=== PATIENT | male | born 1960 | race African-American/Black ===

== ENCOUNTER 2020-02-14 15:23 | Inpatient (IN) | payer SELFPAY ==
[2020-02-14] MEDS ORDERED: ASPIRIN 81 MG CHEWABLE TABLET ONE (16:25)
[2020-02-14 16:48] LABS: Absolute Lymphocytes (CBC) 1.8 K/uL (0.7-4.9); Basophils % 1.2 % (0-1.3); Hematocrit 45.4 % (39.6-49.0); Lymphocytes % 39.2 % (15.3-44.8); MPV 9.2 fL (7.6-11.3); Protime INR 1.33; RBC Red Blood Cell Count 4.54 M/uL (4.33-5.43)
[2020-02-14 16:49] LABS: Arterial Blood Carboxyhemoglob 1.4 % (0-1.5); Blood Gas Oxyhemoglobin 88.9 % (94-97); Blood O2 Saturation 90.9 % (92-98.5)
[2020-02-14] MEDS ORDERED: CLOPIDOGREL 75 MG TABLET ONE ×2 (16:57→19:00)
[2020-02-14] MEDS ORDERED: FUROSEMIDE 40 MG/4 ML VIAL ONE ×2 (16:58→19:36)
[2020-02-14] MEDS ORDERED: ONDANSETRON 4 MG/2 ML VIAL ONE (16:58)
[2020-02-14] MEDS ORDERED: MORPHINE 4 MG/ML SYR ONE (16:58)
[2020-02-14 17:04] LABS: Bilirubin Direct 0.8 mg/dL (0-0.2); Bilirubin Total 3.3 mg/dL (0.2-1.0); Magnesium 2.1 mg/dL (1.8-2.4); Potassium 3.7 mmol/L (3.5-5.1); Protein, Total 6.3 g/dL (6.4-8.2)
--- NOTE | 2020-02-14 17:04 | RAD REPORT ---
EXAM DESCRIPTION: RAD - Chest Single View - 02/14/2020 4:41 pm CLINICAL HISTORY: SOB COMPARISON: None TECHNIQUE: AP portable chest image was obtained 02/14/2020 4:41 pm . FINDINGS: Lung volumes are low. No peripheral mass or consolidation identified. Retrocardiac left ba se assessment is limited. Significant cardiac silhouette enlargement present. Mild vascular engorgeme nt seen. No measurable pleural effusion and no pneumothorax. No acute bony abnormality seen. No acute aortic findings suspected. IMPRESSION: Significant cardiomegaly with mild vascular engorgement. Mild failure/ volume overload is suspected.
[2020-02-14 17:06] LABS: Troponin (Emerg Dept Use Only) 2.75 ng/mL (0.0-0.045)
[2020-02-14] MEDS ORDERED: NITROGLYCERIN/D5W 50 MG/250 ML BTL IV ONE (18:07)
[2020-02-14] MEDS ORDERED: ENOXAPARIN 100 MG/ML SYR SQ ONE (18:07)
--- NOTE | 2020-02-14 18:50 | EDPHYS ---
Physician Documentation [facility] Name: Paco Yadav Age: 59 yrs Sex: Male : 1960 Arrival Date: 02/14/2020 Time: 15:26 Bed External Waiting Private MD: ED Physician Cali Horne HPI: 02/13 16:41 This 59 yrs old Black Male presents to ER via Wheelchair with complaints of Breathing snw Difficulty. 16:41 The patient has shortness of breath at rest, that woke him/her from sleep. Onset: The snw symptoms/episode began/occurred gradually. Duration: The symptoms are continuous. Associated signs and symptoms: Pertinent positives: unable to sleep. Severity of symptoms: At their worst the symptoms were moderate severe. The patient has not experienced similar symptoms in the past. The patient has been recently seen by a physician: sent to [place] for [place]. Historical: - Allergies: 15:43 No Known Allergies; em - PMHx: 15:43 Myocardial infarction; em - PSHx: 15:43 left knee; em - Immunization history:: Adult Immunizations up to date. - Social history:: Smoking status: Patient denies any tobacco usage or history of. ROS: 16:41 Constitutional: Negative for fever, chills, and weight loss, Eyes: Negative for injury, snw pain, redness, and discharge, ENT: Negative for injury, pain, and discharge, Neck: Negative for injury, pain, and swelling, Cardiovascular: Negative for chest pain, palpitations, and edema, Abdomen/GI: Negative for abdominal pain, nausea, vomiting, diarrhea, and constipation, Back: Negative for injury and pain, : Negative for injury, bleeding, discharge, and swelling, MS/Extremity: Negative for injury and deformity, Skin: Negative for injury, rash, and discoloration, Neuro: Negative for headache, weakness, numbness, tingling, and seizure. 16:41 Respiratory: Positive for dyspnea on exertion, shortness of breath, at rest. Exam: 16:40 Constitutional: This is a well developed, well nourished patient who is awake, alert, snw and in no acute distress. Head/Face: Normocephalic, atraumatic. Eyes: Pupils equal round and reactive to light, extra-ocular motions intact. Lids and lashes normal. Conjunctiva and sclera are non-icteric and not injected. Cornea within normal limits. Periorbital areas with no swelling, redness, or edema. ENT: Nares patent. No nasal discharge, no septal abnormalities noted. Tympanic membranes are normal and external auditory canals are clear. Oropharynx with no redness, swelling, or masses, exudates, or evidence of obstruction, uvula midline. Mucous membranes moist. Neck: Trachea midline, no thyromegaly or masses palpated, and no cervical lymphadenopathy. Supple, full range of motion without nuchal rigidity, or vertebral point tenderness. No Meningismus. Chest/axilla: Normal chest wall appearance and motion. Nontender with no deformity. No lesions are appreciated. Abdomen/GI: Soft, non-tender, with normal bowel sounds. No distension or tympany. No guarding or rebound. No evidence of tenderness throughout. Back: No spinal tenderness. No costovertebral tenderness. Full range of motion. Skin: Warm, dry with normal turgor. Normal color with no rashes, no lesions, and no evidence of cellulitis. MS/ Extremity: Pulses equal, no cyanosis. Neurovascular intact. Full, normal range of motion. Neuro: Awake and alert, GCS 15, oriented to person, place, time, and situation. Cranial nerves II-XII grossly intact. Motor strength 5/5 in all extremities. Sensory grossly intact. Cerebellar exam normal. Normal gait. Psych: Awake, alert, with orientation to person, place and time. Behavior, mood, and affect are within normal limits. 16:40 Cardiovascular: Rate: tachycardic, Rhythm: regular, Pulses: no pulse deficits are appreciated, Heart sounds: normal, Edema: 4+ edema to level of left ankle and right ankle. 16:40 Respiratory: mild respiratory distress is noted, Respirations: shallow respirations, tachypnea, Breath sounds: are clear throughout. 16:40 ECG was reviewed by the Attending Physician. [facility] Vital Signs: 15:39 BP 174 / 133; Pulse 93; Resp 18; Temp 97.7(O); Pulse Ox 99% on R/A; Weight 110.22 kg em (R); Height 5 ft. 10 in. (177.80 cm); Pain 0/10; 16:30 BP 162 / 125; Pulse 103; Resp 17; Pulse Ox 98% ; Pain 0/10; hb 17:00 BP 201 / 134; Pulse 78; Resp 18; Pulse Ox 93% on R/A; hb 17:15 BP 170 / 138; Pulse 90; Resp 17; Pulse Ox 93% ; Pain 0/10; hb 17:30 BP 192 / 126; Pulse 94; Resp 19; Pulse Ox 95% ; hb 17:45 BP 192 / 138; Pulse 98; Resp 17; Pulse Ox 98% ; hb 18:00 BP 193 / 124; Pulse 98; Resp 19; Pulse Ox 92% on R/A; hb 18:15 BP 195 / 141; Pulse 91; Resp 15; Pulse Ox 99% on 30% BiPAP; hb 18:30 BP 181 / 140; Pulse 98; Resp 15; Pulse Ox 87% on 30% BiPAP; hb 18:45 BP 180 / 141; Pulse 97; Resp 15; Pulse Ox 99% on 30% BiPAP; Pain 0/10; hb 19:00 BP 199 / 135; Pulse 97; Resp 15; Pulse Ox 97% on 30% BiPAP; hb 19:15 BP 170 / 138; Pulse 96; Resp 15; Pulse Ox 100% on BiPAP; wh 19:30 BP 180 / 141; Pulse 91; Resp 15; Pulse Ox 99% on BiPAP; wh 19:45 BP 180 / 144; Pulse 95; Resp 15; Pulse Ox 100% on BiPAP; wh 15:39 Body Mass Index 34.87 (110.22 kg, 177.80 cm) em MDM: 15:56 Patient medically screened. snw 18:17 Physician consultation: Hakan Dodd MD was called at 17:45, was contacted at 17:45, snw regarding admission, to the ICU, patient's condition. 18:45 Data reviewed: vital signs, nurses notes. Data interpreted: Pulse oximetry: on room air snw is 89 %. Interpretation: hypoxia. Arterial blood gas: PO2: 65.5, Oxygen: on room air. 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 02/13 15:53 Order name: Basic Metabolic Panel; Complete Time: 17:12 snw 02/13 15:53 Order name: CBC with Diff; Complete Time: 17:03 snw 02/13 15:53 Order name: LFT's; Complete Time: 17:12 snw 02/13 15:53 Order name: Magnesium; Complete Time: 17:12 snw 02/13 15:53 Order name: NT PRO-BNP; Complete Time: 17:12 snw 02/13 15:53 Order name: PT-INR; Complete Time: 17:03 w 02/13 15:53 Order name: Troponin (emerg Dept Use Only); Complete Time: 17:12 snw 02/13 15:53 Order name: XRAY Chest (1 view); Complete Time: 17:05 snw 02/13 16:12 Order name: ABG; Complete Time: 16:52 hb 02/13 17:44 Order name: BIPAP 02/13 15:53 Order name: EKG; Complete Time: 15:54 w 02/13 15:53 Order name: Cardiac monitoring; Complete Time: 16:30 w 02/13 15:53 Order name: EKG - Nurse/Tech; Complete Time: 16:31 02/13 15:53 Order name: IV Saline Lock; Complete Time: 16:31 w 02/13 15:53 Order name: Labs collected and sent; Complete Time: 16:31 w 02/13 15:53 Order name: O2 Per Protocol; Complete Time: 16:31 02/13 15:53 Order name: O2 Sat Monitoring; Complete Time: 16:31 02/13 17:14 Order name: VS Recheck: q 15 min; Complete Time: 17:33 02/13 17:44 Order name: Sultana; Complete Time: 20:29 w 02/13 19:02 Order name: CONS Physician Consult EDMS EC:40 Rate is 104 beats/min. MI interval is normal. QRS interval is normal. QT interval is snw normal. No Q waves. T waves are Inverted in leads I, II, aVL. Clinical impression: NSR w/ Non-specific ST/T Changes. Administered Medications: 16:30 Drug: Aspirin Chewable Tablet 324 mg Route: PO; hb 17:02 Follow up: Response: No adverse reaction hb 16:53 Drug: morphine 4 mg Route: IVP; Site: left antecubital; hb 17:36 Follow up: Response: No adverse reaction hb 16:54 Drug: PlaVIX 75 mg Route: PO; hb 17:35 Follow up: Response: No adverse reaction hb 16:54 Drug: Lasix 40 mg Route: IVP; Site: left antecubital; hb 17:36 Follow up: Response: No adverse reaction hb 16:54 Drug: Nitroglycerin 0.4 mg Route: Sublingual; hb 17:36 Follow up: Response: No adverse reaction hb 17:01 Drug: Zofran (Ondansetron) 4 mg Route: IVP; Site: left antecubital; hb 17:36 Follow up: Response: No adverse reaction hb 17:49 Drug: Lovenox 100 mg Route: Sub-Q; Site: abdomen; hb 18:30 Follow up: Response: No adverse reaction hb 18:05 Drug: Nitro Drip - (Nitroglycerin 50 mg, D5W 250 ml) Route: IV; Rate: 5 mcg/min; Site: hb left antecubital; 20:29 Follow up: Response: No adverse reaction; IV Status: Infusion continued upon admission wh 18:55 Drug: PlaVIX 225 mg Route: PO; hb 20:29 Follow up: Response: No adverse reaction wh 20:29 Not Given (Pt transferred to ICU): Lasix 40 mg IVP once wh Disposition: 19:00 Critical Care:. snw 02/14 14:00 Co-signature as Attending Physician, Cali Horne MD I agree with the assessment and kdr plan of care. Disposition: 02/14/20 18:49 Hospitalization ordered by Hakan Dodd for Inpatient Admission. Preliminary diagnosis are Non-ST elevation (NSTEMI) myocardial infarction, Hypertensive heart disease with heart failure. - Bed requested for Intensive Care Unit. - Status is Inpatient Admission. wh - Condition is Stable. - Problem is new. - Symptoms are unchanged. Critical care time excluding procedures: 02/13 19:00 Critical care time: Bedside Care: 15 minutes, Consultation: 30 minutes, Family snw Intervention: 5 minutes. Total time: 50 minutes Signatures: Dispatcher [employer] Cali Minaya MD MD kdr Waters, Shelly, KHUSHBOO-C STEM ROLLER OR CRUSHER OPERATOR-Albert León, JUANY RN Madison Camargo RN RN Sammi Reyes Corrections: (The following items were deleted from the chart) 20:30 18:49 Hospitalization Ordered by Hakan Dodd MD for Inpatient Admission. Preliminary diagnosis is Non-ST elevation (NSTEMI) myocardial infarction; Hypertensive heart disease with heart failure. Bed requested for Intensive Care Unit. Status is Inpatient Admission. Condition is Stable. Problem is new. Symptoms are unchanged. snw
--- NOTE | 2020-02-14 18:50 | ER ---
Nurse's Notes [facility] Name: Paco Yadav Age: 59 yrs Sex: Male : 1960 Arrival Date: 02/14/2020 Time: 15:26 Bed External Waiting [facility] MD: Diagnosis: Non-ST elevation (NSTEMI) myocardial infarction;Hypertensive heart disease with heart failure Presentation: 02/13 15:39 Chief complaint: Patient states: shortness of breath for 2 weeks, also reports judi. leg em swelling, was in the hospital last month for a heart attack, denies N/V or fever, judi. swelling noted to feet, denies chest pain. Coronavirus screen: Client denies travel out of the [place] in the last 14 days. Ebola Screen: Patient negative for fever greater than or equal to 101.5 degrees Fahrenheit, and additional compatible Ebola Virus Disease symptoms Patient denies exposure to infectious person. Patient denies travel to an Ebola-affected area in the 21 days before illness onset. No symptoms or risks identified at this time. Initial Sepsis Screen: Does the patient meet any 2 criteria? HR > 90 bpm. No. Patient's initial sepsis screen is negative. Does the patient have a suspected source of infection? No. Patient's initial sepsis screen is negative. Risk Assessment: Do you want to hurt yourself or someone else? Patient reports no desire to harm self or others. Onset of symptoms was January 31, 2020. 15:39 Method Of Arrival: Wheelchair em 15:39 Acuity: ANNA 2 em Historical: - Allergies: 15:43 No Known Allergies; em - PMHx: 15:43 Myocardial infarction; em - PSHx: 15:43 left knee; em - Immunization history:: Adult Immunizations up to date. - Social history:: Smoking status: Patient denies any tobacco usage or history of. Screenin:32 Abuse screen: Denies threats or abuse. Denies injuries from another. Nutritional hb screening: No deficits noted. Tuberculosis screening: No symptoms or risk factors identified. Fall Risk None identified. Assessment: 16:33 General: Appears in no apparent distress. Behavior is calm, cooperative. Pain: Denies hb pain. Neuro: Level of Consciousness is awake, alert, obeys commands, Oriented to person, place, time, situation. Cardiovascular: Reports since intermittent palpitations and SOB Capillary refill < 3 seconds Patient's skin is warm and dry. Rhythm is sinus tachycardia. Respiratory: Airway is patent Respiratory effort is even, unlabored, Respiratory pattern is regular. GI: No signs and/or symptoms were reported involving the gastrointestinal system. : No signs and/or symptoms were reported regarding the genitourinary system. EENT: No signs and/or symptoms were reported regarding the EENT system. Derm: Skin is pink, warm \T\ dry. Musculoskeletal: No signs and/or symptoms reported regarding the musculoskeletal system. 17:30 Reassessment: Patient appears in no apparent distress at this time. No changes from hb previously documented assessment. Patient and/or family updated on plan of care and expected duration. Pain level reassessed. Patient is alert, oriented x 3, equal unlabored respirations, skin warm/dry/pink. 18:06 Reassessment: Aishwarya RT at bedside for BIPAP setup. hb 18:15 Reassessment: BIPAP 15/8, R14, FiO2 30%. hb 19:05 Reassessment: Patient appears in no apparent distress at this time. Patient and/or wh family updated on plan of care and expected duration. Pain level reassessed. Patient is alert, oriented x 3, equal unlabored respirations, skin warm/dry/pink. 19:21 Reassessment: Nitro drip increased to 30 mcg/min by Juan Ramon HUANG Hospitalist. hb 19:30 Reassessment: Nitro drip increased to 75 mcg/min by Juan Ramon Cardoza PYRIDINE OPERATOR. wh 20:10 Reassessment: Patient and/or family updated on plan of care and expected duration. Pain wh level reassessed. Patient is alert, oriented x 3, equal unlabored respirations, skin warm/dry/pink. Vital Signs: 15:39 BP 174 / 133; Pulse 93; Resp 18; Temp 97.7(O); Pulse Ox 99% on R/A; Weight 110.22 kg em (R); Height 5 ft. 10 in. (177.80 cm); Pain 0/10; 16:30 BP 162 / 125; Pulse 103; Resp 17; Pulse Ox 98% ; Pain 0/10; hb 17:00 BP 201 / 134; Pulse 78; Resp 18; Pulse Ox 93% on R/A; hb 17:15 BP 170 / 138; Pulse 90; Resp 17; Pulse Ox 93% ; Pain 0/10; hb 17:30 BP 192 / 126; Pulse 94; Resp 19; Pulse Ox 95% ; hb 17:45 BP 192 / 138; Pulse 98; Resp 17; Pulse Ox 98% ; hb 18:00 BP 193 / 124; Pulse 98; Resp 19; Pulse Ox 92% on R/A; hb 18:15 BP 195 / 141; Pulse 91; Resp 15; Pulse Ox 99% on 30% BiPAP; hb 18:30 BP 181 / 140; Pulse 98; Resp 15; Pulse Ox 87% on 30% BiPAP; hb 18:45 BP 180 / 141; Pulse 97; Resp 15; Pulse Ox 99% on 30% BiPAP; Pain 0/10; hb 19:00 BP 199 / 135; Pulse 97; Resp 15; Pulse Ox 97% on 30% BiPAP; hb 19:15 BP 170 / 138; Pulse 96; Resp 15; Pulse Ox 100% on BiPAP; wh 19:30 BP 180 / 141; Pulse 91; Resp 15; Pulse Ox 99% on BiPAP; wh 19:45 BP 180 / 144; Pulse 95; Resp 15; Pulse Ox 100% on BiPAP; wh 15:39 Body Mass Index 34.87 (110.22 kg, 177.80 cm) em ED Course: 15:26 Patient arrived in ED. mr 15:42 Triage completed. em 15:43 Arm band placed on. em 15:50 Annette Fletcher FNP-C is PHCP. snw 15:50 Cali Horne MD is Attending Physician. snw 16:10 Madison Camargo, RN is Primary Nurse. hb 16:30 Inserted saline lock: 20 gauge in left antecubital area, using aseptic technique. Blood hb collected. 16:32 Patient has correct armband on for positive identification. Bed in low position. Call hb light in reach. Side rails up X 1. monitor technician on. Pulse ox on. NIBP on. 16:42 XRAY Chest (1 view) In Process Unspecified. EDMS 18:05 BIPAP Sent. hb 18:48 Hakan Dodd MD is Hospitalizing Provider. snw 19:22 EKG done, by ED staff, reviewed by Juan Ramon GROSSMAN. hb 20:00 Sultana cath inserted, using sterile technique, 18 Fr., returned clear yellow urine. wh Patient tolerated well. Patient admitted, IV remains in place. 20:25 No provider procedures requiring assistance completed. Administered Medications: 16:30 Drug: Aspirin Chewable Tablet 324 mg Route: PO; hb 17:02 Follow up: Response: No adverse reaction hb 16:53 Drug: morphine 4 mg Route: IVP; Site: left antecubital; hb 17:36 Follow up: Response: No adverse reaction hb 16:54 Drug: PlaVIX 75 mg Route: PO; hb 17:35 Follow up: Response: No adverse reaction hb 16:54 Drug: Lasix 40 mg Route: IVP; Site: left antecubital; hb 17:36 Follow up: Response: No adverse reaction hb 16:54 Drug: Nitroglycerin 0.4 mg Route: Sublingual; hb 17:36 Follow up: Response: No adverse reaction hb 17:01 Drug: Zofran (Ondansetron) 4 mg Route: IVP; Site: left antecubital; hb 17:36 Follow up: Response: No adverse reaction hb 17:49 Drug: Lovenox 100 mg Route: Sub-Q; Site: abdomen; hb 18:30 Follow up: Response: No adverse reaction hb 18:05 Drug: Nitro Drip - (Nitroglycerin 50 mg, D5W 250 ml) Route: IV; Rate: 5 mcg/min; Site: hb left antecubital; 20:29 Follow up: Response: No adverse reaction; IV Status: Infusion continued upon admission 18:55 Drug: PlaVIX 225 mg Route: PO; hb 20:29 Follow up: Response: No adverse reaction 20:29 Not Given (Pt transferred to ICU): Lasix 40 mg IVP once Outcome: 18:49 Decision to Hospitalize by Provider. snw 20:15 Admitted to ICU accompanied by nurse, via stretcher, room , with oxygen, on monitor, with chart, Report called to Jessica Angulo RN. Report was also provided by Juan Ramon CUELLO 20:15 Condition: stable 20:15 Instructed on the need for admit. 20:30 Patient left the ED. Signatures: Dispatcher [employer] EDAnnette Rey, ROMEROC PYRIDINE OPERATOR-Shanika See Edgar, RN Madison Toney RN RN hb Habalo, Winsy Corrections: (The following items were deleted from the chart) 18:37 18:05 BP 193 / 124; Pulse 98bpm; Resp 19bpm; Pulse Ox 92% RA; hb hb 19:07 19:00 BP 199 / 135; Pulse 10bpm; Resp 15bpm; Pulse Ox 97% 02 30% BiPAP; hb hb 20:30 19:15 BP 170 / 138; Pulse 96bpm; Resp 18bpm; Pulse Ox 100% BiPAP; [facility] 20:30 19:30 BP 180 / 141; Pulse 91bpm; Resp 16bpm; Pulse Ox 99% BiPAP; [facility] 20:30 19:45 BP 180 / 144; Pulse 95bpm; Resp 16bpm; Pulse Ox 100% BiPAP; [facility]
--- NOTE | 2020-02-14 19:45 | P.HP ---
Certification for Inpatient Patient admitted to: Inpatient With expected LOS: >2 Midnights Patient will require the following post-hospital care: None Practitioner: I am a practitioner with admitting privileges, knowledge of patient current condition, hospital course, and medical plan of care. Services: Services provided to patient in accordance with Admission requirements found in Title 42 Section 412.3 of the Code of Federal Regulations Patient History Date of Service: 02/14/20 Reason for admission: NSTEMI History of Present Illness: 59-year-old male with history of hypertension, systolic congestive heart failure, myocardial infarction (STEMI), cardiomegaly, history of tobacco abuse presents emergency department for shortness of breath. Patient's blood pressure around 190/130. Patient is found to have elevated troponin at 2.75, elevated BNP at 8000. Patient was admitted to [facility] approximately [address]-elevation myocardial infarction. Patient had ST elevation in leads 2, 3, aVF, V3 through V6.. Patient had heart catheterization which revealed acute plaque rupture of the left circumflex, lesion was spontaneously recannulated with pharmacological therapy. Patient with 100% occlusion of the apical LAD segment. Patient was discharged from the hospital and has been home complaining about shortness of breath. Patient was not sure how to take his medications or what they are for. Patient states he was not taking Plavix at home. Patient was placed on BiPAP, Sultana catheter placed, patient received nitro drip and IV Lasix in the emergency department. When I saw the patient in the emergency department he was awake, alert, oriented x4. Patient denied chest pain just reports shortness of breath. There was some elevation of the ST segment in leads V3 through V6, this was noted by the ED physician and discussed thoroughly with cardiology who both agreed that this is J-point elevation and not ST-elevation myocardial infarction. 2nd EKG was obtained and reviewed by cardiology. Patient be admitted to the intensive care unit for further management. Case was discussed with cardiology and attending hospitalist physician. - Past Medical/Surgical History -: Systolic congestive heart failure-EF 20% -: Hypertension -: Cardiomegaly -: Myocardial infarction -: 100% occlusion apical LAD -: Heart catheterization 2019 Psychosocial/ Personal History: Patient lives at home with his . - Family History Father -: Heart disease Mother -: Heart disease Brother -: Heart disease, Diabetes - Social History Smoking Status: Former smoker (Patient quit smoking approximately 1 month ago when he had his heart attack) Alcohol use: No CD- Drugs: No Caffeine use: No Place of Residence: Home Review of Systems 10-point ROS is otherwise unremarkable Respiratory: Cough, Dry, Shortness of Breath Cardiovascular: Edema (Bilateral lower extremities, abdomen) Physical Examination - Physical Exam General: Alert, In no apparent distress, Oriented x3 HEENT: Atraumatic, Normocephalic, PERRLA, Mucous membr. moist/pink Neck: Supple, 2+ carotid pulse no bruit Respiratory: Diminished (Bilaterally, patient on BiPAP) Cardiovascular: Regular rate/rhythm (Patient with PVCs, sinus tachycardia around 100), Normal S1 S2, Edema (3+ edema bilateral lower extremities, some edema noted to abdomen.) Capillary refill: <2 Seconds Gastrointestinal: Normal bowel sounds, Soft and benign, No tenderness, No rebound, No guarding Musculoskeletal: No contractures, No erythema, No tenderness Integumentary: No tenderness/swelling, No erythema, No warmth Neurological: Normal speech, Normal strength at 5/5 x4 extr, Normal tone - Studies Laboratory Data (last 24 hrs) 02/14/20 16:24: PT 15.6 H, INR 1.33 02/14/20 16:24: WBC 4.5, Hgb 14.7, Hct 45.4, Plt Count 199 02/14/20 16:24: Sodium 144, Potassium 3.7, BUN 19 H, Creatinine 1.93 H, Glucose 101, Magnesium 2.1, Total Bilirubin 3.3 H, AST 28, ALT 53, Alkaline Phosphatase 110 Assessment and Plan - Plan Assessment NSTEMI Hypertensive emergency Acute on chronic systolic congestive heart failure Acute kidney injury Hypertensive emergency History of tobacco abuse Plan NSTEMI: Initial troponin 2.75, will trend troponin. Cardiology has been consulted and case was discussed in detail. Plan will be for heart catheterization tomorrow morning. Continue with Lovenox 1 milligram/kilogram twice daily. Patient received Plavix loading dose, aspirin, Lasix, Sultana catheter, nitroglycerin drip in the emergency department. I have started patient's home medications. Patient to remain on telemetry throughout this hospitalization, will admit to the intensive care unit. Appreciate further input from cardiology. Hypertensive emergency: Continue with nitroglycerin drip at this time. Titrate up as needed. Have initiate patient's home medications all the patient be NPO after midnight for heart catheterization. Acute on chronic systolic congestive heart failure: Continue as above, previous recent echocardiogram from [facility] showed EF of approximately 20%. Continue with Lasix, nitroglycerin. Appreciate further input from cardiology. Acute kidney injury: Creatinine 1.9 at this time. Patient will require full anticoagulation with Lovenox and likely have heart catheterization tomorrow. Suspect kidney injury may worsen slightly due to contrast. Continue with Lasix at this time as this is likely cardiorenal. Will consult nephrology as needed. Hypertensive emergency: Continue nitroglycerin drip, Lasix, home medications. May need adjustment of home medications once patient is stabilized in heart catheterization performed. History of tobacco abuse: Patient reports cessation of tobacco products for the past 1 month. Discharge Plan: Home Plan to discharge in: Greater than 2 days - Advance Directives Does patient have a Living Will: No Does patient have a Durable POA for Healthcare: No - Code Status/Comfort Care Code Status Assessed: Yes (Patient is full code) Critical Care: No Time Spent Managing Pts Care (In Minutes): 55
[2020-02-14] MEDS ORDERED: NITROGLYCERIN/D5W 50 MG/250 ML BTL IV PRN (20:45)
[2020-02-14] MEDS ORDERED: ONDANSETRON 4 MG/2 ML VIAL IV PRN (20:45)
[2020-02-14] MEDS ORDERED: MORPHINE 2 MG/ML SYR IV PRN (20:45)
[2020-02-14] MEDS ORDERED: ACETAMINOPHEN 500 MG TAB PO PRN (20:45)
[2020-02-14] MEDS ORDERED: FUROSEMIDE 40 MG/4 ML VIAL IV ONE (20:47)
[2020-02-14] MEDS ORDERED: carvediloL 6.25 MG TAB ONE (21:05)
[2020-02-14] MEDS: carvediloL 25 MG TAB PO SCH (21:33)
[2020-02-14] MEDS: ATORVASTATIN 80 MG TAB PO SCH (21:33)
[2020-02-14] MEDS: HYDRALAZINE HCL 25 MG TABLET PO SCH (21:33)
[2020-02-14] MEDS ORDERED: carvediloL 25 MG TAB ONE (21:40)
[2020-02-14] MEDS ORDERED: ATORVASTATIN 80 MG TAB ONE (21:40)
[2020-02-14] MEDS ORDERED: HYDRALAZINE HCL 25 MG TABLET ONE (21:41)
[2020-02-14 22:18] VITALS: BMI 34.8
[2020-02-14 22:38] LABS: CKMB Creatine Kinase MB 2.3 ng/mL (0.3-3.6)
[2020-02-14 22:43] LABS: Troponin I 2.84 ng/mL (0.0-0.045)
[2020-02-14] MEDS ORDERED: POTASSIUM 25 MEQ EFFERV TAB PO ONE (22:59)
[2020-02-14] MEDS ORDERED: POTASSIUM CL SA 10 MEQ TAB PO ONE ×2 (23:05→23:30)
[2020-02-15] MEDS ORDERED: NITROGLYCERIN/D5W 50 MG/250 ML BTL IV ONE (00:26)
[2020-02-15 04:39] LABS: Absolute Lymphocytes (CBC) 1.1 K/uL (0.7-4.9); Hematocrit 39.3 % (39.6-49.0); Lymphocytes % 20.9 % (15.3-44.8); MPV 9.1 fL (7.6-11.3); RBC Red Blood Cell Count 3.93 M/uL (4.33-5.43)
[2020-02-15 04:53] LABS: Magnesium 1.9 mg/dL (1.8-2.4); Potassium 3.5 mmol/L (3.5-5.1)
[2020-02-15] MEDS ORDERED: POTASSIUM CL SA 10 MEQ TAB PO ONE ×2 (05:16→05:48)
[2020-02-15 05:32] LABS: CKMB Creatine Kinase MB 2.1 ng/mL (0.3-3.6)
[2020-02-15 05:33] LABS: Troponin I 2.41 ng/mL (0.0-0.045)
[2020-02-15] MEDS ORDERED: NA CHLORIDE 0.9% 1,000 ML ONE (05:38)
[2020-02-15] MEDS ORDERED: ASPIRIN EC 81 MG TAB PO ONE (05:39)
[2020-02-15] MEDS ORDERED: NA CHLORIDE 0.9% 1,000 ML IV SCH (06:00)
[2020-02-15] MEDS: ASPIRIN EC 81 MG TAB PO SCH (06:00)
[2020-02-15] MEDS: carvediloL 25 MG TAB PO SCH ×2 (06:00→17:16)
[2020-02-15] MEDS: HYDRALAZINE HCL 25 MG TABLET PO SCH ×3 (06:00→20:06)
[2020-02-15] MEDS ORDERED: FUROSEMIDE 40 MG/4 ML VIAL IV SCH ×2 (09:00→17:00)
[2020-02-15] MEDS: Enoxaparin 120 MG/0.8 ML SYR SQ SCH ×2 (09:00→20:05)
--- NOTE | 2020-02-15 09:09 | P.PN ---
Subjective Date of Service: 02/15/20 Chief Complaint: NSTEMI Subjective: Improving (breathing more comfortably, feels swelling in legs has improved) Physical Examination - Vital Signs Temperature: 98.5 F Blood Pressure: 137/88 Pulse: 84 Respirations: 20 Pulse Ox (%): 94 - Physical Exam General: Alert, In no apparent distress HEENT: Sclerae nonicteric Neck: JVD distended Respiratory: Diminished (bilaterally at bases, otherwise clear) Cardiovascular: Regular rate/rhythm, Edema (3+ up to thighs) Gastrointestinal: Soft and benign, Non-distended, No tenderness Musculoskeletal: No erythema, No tenderness Integumentary: No rashes Neurological: Normal speech, Normal affect Urinary: Sultana catheter - Studies Laboratory Data (last 24 hrs) 02/14/20 16:24: PT 15.6 H, INR 1.33 02/14/20 16:24: WBC 4.5, Hgb 14.7, Hct 45.4, Plt Count 199 02/14/20 16:24: Sodium 144, Potassium 3.7, BUN 19 H, Creatinine 1.93 H, Glucose 101, Magnesium 2.1, Total Bilirubin 3.3 H, AST 28, ALT 53, Alkaline Phosphatase 110 Assessment & Plan Physician Review Additional Text: NSTEMI Hypertensive emergency Acute on chronic systolic congestive heart failure Acute kidney injury History of tobacco abuse NSTEMI: -troponin: 2.75 -> 2.84 -> 2.41 -Cardiology consulted yesterday. plan for heart cath today, receiving lovenox 1mg/kg BID, ASA & Plavs -required significant nitroglycerin drip overnight, was able to decrease rate earlier this morning Hypertensive emergency: -Continue with nitroglycerin drip at this time -BP much better this morning Acute on chronic systolic congestive heart failure: -weaning nitro drip this mrboo, TTE recently done at [facility]: EF: 20% -diuresed ~3L overnight with 80mg IV lasix, can continue 40 IV BID for now Acute kidney injury: -Creatinine 1.9 on admission. down to 1.7 today; suspect due to CHF / cardiorenal -Received lovenox yesterday, hold lovenox this AM for cath History of tobacco abuse: Patient reports cessation of tobacco products for the past 1 month. Dispo: pending cardiac cath today Time Spent Managing Pts Care (In Minutes): 35
[2020-02-15] MEDS ORDERED: HEPA 1000U/500MLS 2,000 UNIT/1,000 ML BAG IV ONE (10:24)
[2020-02-15] MEDS ORDERED: HEPARIN 10,000 UNIT/10 ML VIAL IV ONE (10:25)
[2020-02-15] MEDS ORDERED: FENTANYL CITR 100 MCG/2 ML ONE (10:25)
[2020-02-15] MEDS ORDERED: MIDAZOLAM HCL 2 MG/2 ML INJ ONE (10:25)
[2020-02-15] MEDS ORDERED: NITROGLYCERIN 100 MCG/ML SYR (for cath lab use only) IV ONE (10:25)
[2020-02-15] MEDS ORDERED: HEPARIN 5000 UNIT/ML 1 ML VIAL ONE (10:25)
[2020-02-15] MEDS ORDERED: NICARDIPINE HCL 25 MG/10 ML IV ONE (10:25)
[2020-02-15] MEDS ORDERED: ACETYLCYST 20% 4 ML VIAL IH ONE (10:26)
[2020-02-15] MEDS ORDERED: HYDRALAZINE HCL 10 MG TABLET ONE (13:21)
[2020-02-15] MEDS: FUROSEMIDE 40 MG/4 ML VIAL IV SCH (17:24)
[2020-02-15] MEDS ORDERED: FUROSEMIDE 100 MG/10 ML VIAL IV ONE (17:25)
[2020-02-15] MEDS ORDERED: FUROSEMIDE 40 MG/4 ML VIAL ONE (17:34)
[2020-02-15] MEDS: ATORVASTATIN 80 MG TAB PO SCH (20:04)
[2020-02-15] MEDS ORDERED: ATORVASTATIN 20 MG TAB ONE (20:14)
[2020-02-16] MEDS: carvediloL 25 MG TAB PO SCH (05:06)
[2020-02-16 05:14] LABS: Absolute Lymphocytes (CBC) 1.5 K/uL (0.7-4.9); Basophils % 1.2 % (0-1.3); MPV 8.5 fL (7.6-11.3); RBC Red Blood Cell Count 4.11 M/uL (4.33-5.43)
[2020-02-16 05:35] LABS: Albumin 2.5 g/dL (3.4-5.0); Bilirubin Total 2.3 mg/dL (0.2-1.0); Potassium 3.7 mmol/L (3.5-5.1); Protein, Total 5.6 g/dL (6.4-8.2)
[2020-02-16] MEDS ORDERED: FUROSEMIDE 40 MG/4 ML VIAL ONE (07:10)
[2020-02-16] MEDS ORDERED: ASPIRIN EC 81 MG TAB PO ONE (07:10)
[2020-02-16] MEDS ORDERED: POTASSIUM 25 MEQ EFFERV TAB ONE (07:10)
[2020-02-16] MEDS: FUROSEMIDE 40 MG/4 ML VIAL IV SCH (07:24)
[2020-02-16] MEDS: ASPIRIN EC 81 MG TAB PO SCH (07:24)
[2020-02-16] MEDS: HYDRALAZINE HCL 25 MG TABLET PO SCH ×2 (07:25→13:10)
[2020-02-16] MEDS ORDERED: POTASSIUM 25 MEQ EFFERV TAB PO ONE (08:00)
[2020-02-16] MEDS: Enoxaparin 120 MG/0.8 ML SYR SQ SCH (09:07)
[2020-02-16 09:20] VITALS: O2SAT 96
[2020-02-16 12:02] VITALS: TEMP 98
--- NOTE | 2020-02-16 12:53 | P.DS ---
Admission Date: 02/14/20 Discharge Date: 02/16/20 Disposition: ROUTINE DISCHARGE Discharge Condition: GOOD Reason for Admission: NSTEMI Consultations: Cardiology- Dr. Rodrigues Procedures: CXR (02/13): Significant cardiomegaly with mild vascular engorgement. No measurable pleural effusion and no pneumothorax. Cardiac catheterization (02/14): Report unavailable at this time, however pneumatic tool repairer reported coronaries were all right Problem list NSTEMI Hypertensive emergency Acute on chronic systolic congestive heart failure Acute kidney injury History of tobacco abuse Brief History of Present Illness: 59-year-old male with history of hypertension, systolic congestive heart failure, myocardial infarction (STEMI), cardiomegaly, history of tobacco abuse presents emergency department for shortness of breath. Patient's blood pressure around 190/130. Patient is found to have elevated troponin at 2.75, elevated BNP at 8000. Patient was admitted to [facility] approximately [address]-elevation myocardial infarction. Patient had ST elevation in leads 2, 3, aVF, V3 through V6.. Patient had heart catheterization which revealed acute plaque rupture of the left circumflex, lesion was spontaneously recannulated with pharmacological therapy. Patient with 100% occlusion of the apical LAD segment. Patient was discharged from the hospital and has been home complaining about shortness of breath. Patient was not sure how to take his medications or what they are for. Patient states he was not taking Plavix at home. Patient was placed on BiPAP, Sultana catheter placed, patient received nitro drip and IV Lasix in the emergency department. Hospital Course: The patient was admitted to the ICU and was placed on a nitro drip for his significant hypertension (>200/110), which he remained on overnight and was able to be titrated off the following morning. A Sultana catheter was inserted for strict I/Os. He received 80 mg IV Lasix and diuresed ~ 3.6 L overnight. His troponins were trended (2.75-> 2.84-> 2.41). Cardiology was consulted. He was then taken to the cardiac catheterization lab where his coronaries were reported to be okay and he did not need further intervention. During his hospitalization he was continued to be diuresed with 80 mg IV Lasix b.i.d.. He diuresed an additional 4.7 L after the catheterization. Of note is suspected to have on CKD of unknown baseline. He reported mentally at some level of CKD with unable to provide further information. His creatinine on admission was 1.9 and decreased to 1.7 on day of discharge. Suspected to be due to CHF/cardiorenal. Given his kidney function his lisinopril was held on discharge. His blood pressure was much improved, 119-130/94-97. Patient isosorbide was not given during hospitalization: Patient reported it was giving him severe headaches at home, and this was discontinued on discharge. He states he will follow up with his pneumatic tool repairer to review these medications. He was discharged on a higher dose of Lasix (80 mg daily). He was advised to follow up with his PCP and pneumatic tool repairer. He would benefit from a repeat BMP to follow his kidney function. Vital Signs/Physical Exam: Temp Pulse Resp BP Pulse Ox 98.0 F 85 20 119/94 H 94 02/16/20 12:00 02/16/20 12:00 02/16/20 12:00 02/16/20 12:00 02/16/20 12:00 General: Alert, In no apparent distress HEENT: Mucous membr. moist/pink, EOMI, Sclerae nonicteric Neck: Supple, JVD not distended Respiratory: Clear to auscultation bilaterally, Normal air movement Cardiovascular: Regular rate/rhythm, Normal S1 S2, Edema (1+ b/l up to knees) Gastrointestinal: Soft and benign, Non-distended, No tenderness Musculoskeletal: No erythema, No tenderness Integumentary: No rashes Neurological: Normal speech, Normal strength at 5/5 x4 extr, Normal affect Laboratory Data at Discharge: WBC 5.0 K/uL (4.3-10.9) 02/16/20 05:00 Hgb 13.5 g/dL (13.6-17.9) L 02/16/20 05:00 Hct 41.0 % (39.6-49.0) 02/16/20 05:00 Plt Count 204 K/uL (152-406) 02/16/20 05:00 PT 15.6 SECONDS (9.5-12.5) H 02/14/20 16:24 INR 1.33 02/14/20 16:24 Sodium 146 mmol/L (136-145) H 02/16/20 05:00 Potassium 3.7 mmol/L (3.5-5.1) 02/16/20 05:00 BUN 15 mg/dL (7-18) 02/16/20 05:00 Creatinine 1.73 mg/dL (0.55-1.3) H 02/16/20 05:00 Glucose 103 mg/dL (74-106) 02/16/20 05:00 Magnesium 2.0 mg/dL (1.8-2.4) 02/16/20 05:00 Total Bilirubin 2.3 mg/dL (0.2-1.0) H 02/16/20 05:00 AST 17 U/L (15-37) 02/16/20 05:00 ALT 37 U/L (12-78) 02/16/20 05:00 Alkaline Phosphatase 88 U/L (45-117) 02/16/20 05:00 Troponin I 2.41 ng/mL (0.0-0.045) H* 02/15/20 04:04 Home Medications: Carvedilol [Coreg] 25 mg PO BID 02/14/20 Hydralazine [Apresoline*] 25 mg PO Q8H 02/14/20 Aspirin [Aspirin EC 81 MG] 81 mg PO DAILY 30 Days #30 tablet. 02/16/20 Atorvastatin Calcium [Lipitor] 1 tab PO BEDTIME 30 Days #30 tab 02/16/20 Clopidogrel Bisulfate [Plavix] 1 tab PO DAILY 30 Days #30 tablet 02/16/20 Furosemide [Lasix] 1 tab PO DAILY 30 Days #30 tablet 02/16/20 New Medications: Aspirin [Aspirin EC 81 MG] 81 mg PO DAILY 30 Days #30 tablet. Furosemide [Lasix] 1 tab PO DAILY 30 Days #30 tablet Atorvastatin Calcium [Lipitor] 1 tab PO BEDTIME 30 Days #30 tab Clopidogrel Bisulfate [Plavix] 1 tab PO DAILY 30 Days #30 tablet Patient Discharge Instructions: Follow up with Cardiology, Dr. Rodrigues, in 1 week. Follow up with PCP within 1 week. You will need your kidney function ch ecked at follow up. Diet: AHA Activity: Ad francisco Followup: Leonardo Rodrigues MD [ACTIVE - CAN ADMIT] - 1 Week (pneumatic tool repairer- call to schedule an appointment ) Time spent managing pt's care (in minutes): 40
[2020-02-16 14:45] VITALS: BP 128/89
== END 2020-02-16 15:00 | disposition home or self-care (01) | DRG 280 ==
LOC: ER 15:23 → ERHOLD 19:01
PROVIDERS: ADMIT Hospitalist; ATTEND Hospitalist
PROC: 4A023N7 Measurement of Cardiac Sampling and Pressure, Left Heart, Percutaneous Approach (ICD-10-PCS; principal; 2020-02-15)
PROC: B2111ZZ Fluoroscopy of Multiple Coronary Arteries using Low Osmolar Contrast (ICD-10-PCS; 2020-02-15)
DX: I21.4 Non-ST elevation (NSTEMI) myocardial infarction (principal); I50.23 Acute on chronic systolic (congestive) heart failure; I16.1 Hypertensive emergency; N17.9 Acute kidney failure, unspecified; I13.0 Hypertensive heart and chronic kidney disease with heart failure and stage 1 through stage 4 chronic kidney disease, or unspecified chronic kidney disease; N18.9 Chronic kidney disease, unspecified; I25.2 Old myocardial infarction; F17.200 Nicotine dependence, unspecified, uncomplicated; Z20.828 Contact with and (suspected) exposure to other viral communicable diseases
CPT/HCPCS: 36415; 51702; 71045; 80048; 80053; 80076; 82550; 82553; 82805; 83735; 83880; 84484; 85025; 85610; 93005; 93458; 94660; 96365; 96366; 96372; 96375; 99285; C1893; J1644; J1650; J1940; J2250; J2405; J3010; J7030; U0003

== ENCOUNTER 2020-03-14 09:37 | Inpatient (IN) | payer OTHER, SELFPAY ==
[2020-03-14] MEDS ORDERED: FUROSEMIDE 100 MG/10 ML VIAL IV ONE (10:28)
[2020-03-14 10:58] LABS: Absolute Lymphocytes (CBC) 2.2 K/uL (0.7-4.9); Basophils % 1.5 % (0-1.3); Lymphocytes % 40.2 % (15.3-44.8); MPV 9.2 fL (7.6-11.3); RBC Red Blood Cell Count 4.96 M/uL (4.33-5.43)
[2020-03-14 11:00] LABS: Protime INR 1.38
[2020-03-14 11:18] LABS: Albumin 3.4 g/dL (3.4-5.0); Bilirubin Direct 1.2 mg/dL (0-0.2); Bilirubin Total 4.4 mg/dL (0.2-1.0); Magnesium 2.4 mg/dL (1.8-2.4); Potassium 4.2 mmol/L (3.5-5.1); Protein, Total 7.2 g/dL (6.4-8.2)
[2020-03-14 11:21] LABS: Urine Blood TRACE (NEG); Urine Glucose NEGATIVE (NEG); Urine Protein 3+ (NEG); Urine Specific Gravity 1.025 (1.005-1.030); Urine pH 5.5 (5.0-7.0)
[2020-03-14 11:25] LABS: Troponin (Emerg Dept Use Only) 3.42 ng/mL (0.0-0.045)
--- NOTE | 2020-03-14 11:32 | RAD REPORT ---
EXAM DESCRIPTION: CT - Chest Abd Pelvis Wo Con - 03/14/2020 11:05 am CLINICAL HISTORY: Cough, abdominal pain COMPARISON: None TECHNIQUE: Computed axial tomography of the chest, abdomen and pelvis was obtained. Oral contrast wa s given. IV contrast was not requested. All CT scans are performed using dose optimization technique as appropriate and may include automated exposure control or mA/KV adjustment according to patient size. FINDINGS: The evaluation of mediastinum, zach, vessels and solid organs is limited secondary to the lack of IV contrast administration The heart is moderately to markedly enlarged. Small right pleural effusion. No pericardial effusion. Multiple middle mediastinal lymph nodes vary in size from 10 to 16 millimeters. Mild right lower lobe opacity. Mild subsegmental atelectasis left lung The liver, spleen, pancreas, adrenals and kidneys appear grossly normal There is no evidence of diverticulitis. Diffuse edema within the subcutaneous tissues. Trace amount of ascites IMPRESSION: Moderate to marked cardiomegaly Small right pleural effusion Moderate mediastinal lymphadenopathy may be reactive in nature. Lymphoma can also have this appearanc e. Followup CT chest in a couple months recommended for re-evaluation. Mild right lower lobe opacity may represent pneumonia or atelectasis Diffuse edema within the subcutaneous tissues
--- NOTE | 2020-03-14 11:40 | RAD REPORT ---
EXAM DESCRIPTION: [facility] Single View03/14/2020 10:52 am CLINICAL HISTORY: Shortness of breath COMPARISON: January 2020 FINDINGS: Mild right basilar opacity may represent atelectasis. The heart is moderately to markedly enlarged. Small right pleural effusion
--- NOTE | 2020-03-14 12:35 | ER ---
Nurse's Notes [facility] Name: Paco Yadav Age: 60 yrs Sex: Male : 1960 Arrival Date: 03/14/2020 Time: 09:39 Bed 8 Private MD: Diagnosis: Unspecified combined systolic (congestive) and diastolic (congestive) heart failure;Shortness of breath Presentation: 03/14 09:55 Chief complaint: Patient states: SOB x4 DAYS WITH BLE EDEMA. Coronavirus screen: At bp this time, the client does not indicate any symptoms associated with coronavirus-19. Ebola Screen: No symptoms or risks identified at this time. Initial Sepsis Screen: Does the patient meet any 2 criteria? HR > 90 bpm. No. Patient's initial sepsis screen is negative. Does the patient have a suspected source of infection? No. Patient's initial sepsis screen is negative. Risk Assessment: Do you want to hurt yourself or someone else? Patient reports no desire to harm self or others. Onset of symptoms is unknown. 09:55 Method Of Arrival: Ambulatory bp 09:55 Acuity: ANNA 3 bp Triage Assessment: 09:55 General: Appears in no apparent distress. uncomfortable, Behavior is calm, cooperative, bp appropriate for age. Pain: Denies pain. EENT: No deficits noted. Neuro: Level of Consciousness is awake, alert, obeys commands, Oriented to person, place, time, situation, Appropriate for age. Cardiovascular: JVD is present Rhythm is sinus tachycardia. Respiratory: Reports shortness of breath Onset: The symptoms/episode began/occurred 4 DAYS AGO, the patient has mild shortness of breath. GI: No signs and/or symptoms were reported involving the gastrointestinal system. : No signs and/or symptoms were reported regarding the genitourinary system. Derm: No deficits noted. Musculoskeletal: Swelling present in right leg and left leg. Historical: - Allergies: 10:12 No Known Allergies; bp - PMHx: 10:12 Myocardial infarction; CHF; Hypertension; bp - Immunization history:: Adult Immunizations unknown. - Social history:: Smoking status: Patient denies any tobacco usage or history of. Screenin:00 Abuse screen: Denies threats or abuse. Denies injuries from another. Nutritional bp screening: No deficits noted. Tuberculosis screening: No symptoms or risk factors identified. Fall Risk None identified. Assessment: 10:00 General: SEE TRIAGE NOTE. Cardiovascular: Rhythm is sinus tachycardia. Respiratory: bp Airway is patent Respiratory effort is even, unlabored, Breath sounds with crackles bilaterally. 11:28 Reassessment: Patient appears in no apparent distress at this time. No changes from tw2 previously documented assessment. Patient and/or family updated on plan of care and expected duration. Pain level reassessed. Patient is alert, oriented x 3, equal unlabored respirations, skin warm/dry/pink. 12:28 Reassessment: ALL CURRENT ORDERS COMPLETE AND RESULTED, PT DIURESING EFFECTIVELY. bp 14:00 Reassessment: ADMIT INITIATED, PT REMAINS HYPERTENSIVE, BUT CONTINUING TO DIURESE. bp 15:00 Reassessment: ADMIT COMPLETE, COVID RESULT PENDING FOR PLACEMENT. PT STATES SOME RELIEF bp OF S/S. 15:31 Reassessment: REPORT TO YARELY HARRINGTON FOR RM 221. bp Vital Signs: 09:55 BP 168 / 138; Pulse 111; Resp 28; Temp 98; Pulse Ox 100% ; Weight 106.59 kg; Height 5 bp ft. 11 in. (180.34 cm); 11:28 BP 154 / 138; Pulse 109; Resp 25; Pulse Ox 97% on R/A; tw2 12:27 BP 157 / 102; Pulse 100; Resp 17; Pulse Ox 98% ; bp 13:30 BP 157 / 122; Pulse 101; Resp 20; Pulse Ox 98% on R/A; tw2 14:43 BP 167 / 125; Pulse 103; Resp 20; Pulse Ox 96% on R/A; tw2 15:24 BP 170 / 103; Pulse 95; Resp 17; Temp 98; Pulse Ox 98% ; bp 09:55 Body Mass Index 32.78 (106.59 kg, 180.34 cm) bp ED Course: 09:39 Patient arrived in ED. ag5 09:48 Cali Horne MD is Attending Physician. kdr 09:58 Dimitri Queen, JUANY is Primary Nurse. bp 10:12 Triage completed. bp 10:14 Arm band placed on. bp 10:14 Patient has correct armband on for positive identification. Placed in gown. Bed in low mh5 position. Call light in reach. Side rails up X 1. Warm blanket given. gambling monitor on. Pulse ox on. NIBP on. 10:15 EKG done, by ED staff, reviewed by Cali Horne MD. 5 10:38 Missed attempt(s): 20 gauge in left antecubital area. by JUANY Mosley. Bleeding controlled, tw2 band aid applied, catheter tip intact. Missed attempt(s): 22 gauge in left wrist. by JUANY Mosley. Bleeding controlled, band aid applied, catheter tip intact. 10:42 Missed attempt(s): 20 gauge in right antecubital area. Bleeding controlled, band aid tw2 applied, catheter tip intact. Inserted saline lock: 22 gauge in right antecubital area, using aseptic technique. Blood collected. 10:54 XRAY Chest (1 view) In Process Unspecified. EDMS 11:06 CT Chest Abdomen Pelvis W/O Contrast In Process Unspecified. EDMS 12:32 Alin Dong DO is Hospitalizing Provider. kdr 15:32 No provider procedures requiring assistance completed. Patient admitted, IV remains in bp place. Administered Medications: 10:42 Drug: Lasix 80 mg Route: IVP; Site: right antecubital; tw2 12:50 Follow up: Response: No adverse reaction tw2 Output: 12:40 Urine: 850ml (Voided); Total: 850ml. tw2 14:08 Urine: 900ml (Voided); Total: 1750ml. bp Outcome: 12:34 Decision to Hospitalize by Provider. kdr 15:32 Admitted to Tele accompanied by tech, via wheelchair, room 221, with chart, Report bp called to YARELY HARRINGTON 15:32 Condition: stable 15:32 Instructed on the need for admit. 15:34 Patient left the ED. bp Signatures: Dispatcher [employer] EDMS Cali Horne MD MD kdr Victorina Coelho RN RN tw2 Dana Sharma 5 Dimitri Queen, RN RN bp Celeste Vega ag5 Corrections: (The following items were deleted from the chart) 11:29 11:28 BP 154 / 138; Pulse 109bpm; Resp 16bpm; Pulse Ox 97% RA; tw2 tw2 14:46 14:43 Pulse 103bpm; Resp 20bpm; Pulse Ox 96% RA; tw2 tw2 14:47 14:43 BP 170 / 130; Pulse 103bpm; Resp 20bpm; Pulse Ox 96% RA; tw2 tw2
--- NOTE | 2020-03-14 12:36 | EDPHYS ---
Physician Documentation [facility] Name: Paco Yadav Age: 60 yrs Sex: Male : 1960 Arrival Date: 03/14/2020 Time: 09:39 Bed 8 Private MD: ED Physician Cali Horne HPI: 03/14 19:44 This 60 yrs old Black Male presents to ER via Ambulatory with complaints of Breathing kdr Difficulty. 19:44 The patient has shortness of breath at rest, with light activity. Onset: The kdr symptoms/episode began/occurred gradually, 4 day(s) ago. Duration: The symptoms are continuous, and are steadily getting worse. The patient's shortness of breath is aggravated by exertion, light activity, prone position, supine position, walking. Associated signs and symptoms: Pertinent positives: This patient does not have any pertinent positive signs or symptoms associated with shortness of breath. Pertinent negatives: diaphoresis, dizziness, fever, hemoptysis, nausea, numbness in extremities, visual changes. Severity of symptoms: At their worst the symptoms were mild moderate just prior to arrival, in the emergency department the symptoms are unchanged. The patient has not experienced similar symptoms in the past. The patient has been recently seen by a physician: Sent by Dr. Ivy for evaluation and admission. Historical: - Allergies: 10:12 No Known Allergies; bp - PMHx: 10:12 Myocardial infarction; CHF; Hypertension; bp - Immunization history:: Adult Immunizations unknown. - Social history:: Smoking status: Patient denies any tobacco usage or history of. ROS: 19:44 Constitutional: Negative for fever, chills, and weight loss, Eyes: Negative for injury, kdr pain, redness, and discharge, Neck: Negative for injury, pain, and swelling, Cardiovascular: Negative for chest pain, palpitations, and edema, Respiratory: Negative for shortness of breath, cough, wheezing, and pleuritic chest pain, Abdomen/GI: Negative for abdominal pain, nausea, vomiting, diarrhea, and constipation, Back: Negative for injury and pain, : Negative for injury, bleeding, discharge, and swelling, MS/Extremity: Negative for injury and deformity, Skin: Negative for injury, rash, and discoloration, Neuro: Negative for headache, weakness, numbness, tingling, and seizure activity. Psych: Negative for depression, anxiety, suicide ideation, homicidal ideation, and hallucinations, Allergy/Immunology: Negative for hives, rash, and allergies, Endocrine: Negative for neck swelling, polydipsia, polyuria, polyphagia, and marked weight changes, Hematologic/Lymphatic: Negative for swollen nodes, abnormal bleeding, and unusual bruising. 19:44 Respiratory: Positive for dyspnea on exertion. 19:44 MS/extremity: Positive for swelling, of the abdomen, right leg and left leg, Negative for decreased range of motion, ecchymosis, erythema, pain, paresthesias. Exam: 19:28 ECG was reviewed by the Attending Physician. kdr 19:44 Constitutional: This is a well developed, well nourished patient who is awake, alert, kdr and in no acute distress. Head/Face: Normocephalic, atraumatic. Eyes: Pupils equal round and reactive to light, extra-ocular motions intact. Lids and lashes normal. Conjunctiva and sclera are non-icteric and not injected. Cornea within normal limits. Periorbital areas with no swelling, redness, or edema. Neck: Trachea midline, no thyromegaly or masses palpated, and no cervical lymphadenopathy. Supple, full range of motion without nuchal rigidity, or vertebral point tenderness. No Meningismus. Chest/axilla: Normal chest wall appearance and motion. Nontender with no deformity. No lesions are appreciated. Cardiovascular: Regular rate and rhythm with a normal S1 and S2. No gallops, murmurs, or rubs. Normal PMI, no JVD. No pulse deficits. Back: No spinal tenderness. No costovertebral tenderness. Full range of motion. Neuro: Awake and alert, GCS 15, oriented to person, place, time, and situation. Cranial nerves II-XII grossly intact. Motor strength 5/5 in all extremities. Sensory grossly intact. Cerebellar exam normal. Normal gait. Psych: Awake, alert, with orientation to person, place and time. Behavior, mood, and affect are within normal limits. 19:44 Respiratory: the patient does not display signs of respiratory distress, Respirations: normal, Breath sounds: no acute changes, rales, that are mild, are scattered. 19:44 Abdomen/GI: Inspection: distension, obese Bowel sounds: diminished, in all quadrants, Palpation: soft, nontender. 19:44 Musculoskeletal/extremity: Extremities: grossly normal except: Both lower extremities are swollen up to his chest. Vital Signs: 09:55 BP 168 / 138; Pulse 111; Resp 28; Temp 98; Pulse Ox 100% ; Weight 106.59 kg; Height 5 bp ft. 11 in. (180.34 cm); 11:28 BP 154 / 138; Pulse 109; Resp 25; Pulse Ox 97% on R/A; tw2 12:27 BP 157 / 102; Pulse 100; Resp 17; Pulse Ox 98% ; bp 13:30 BP 157 / 122; Pulse 101; Resp 20; Pulse Ox 98% on R/A; tw2 14:43 BP 167 / 125; Pulse 103; Resp 20; Pulse Ox 96% on R/A; tw2 15:24 BP 170 / 103; Pulse 95; Resp 17; Temp 98; Pulse Ox 98% ; bp 09:55 Body Mass Index 32.78 (106.59 kg, 180.34 cm) bp MDM: 12:34 Patient medically screened. kdr 19:28 Data reviewed: vital signs, lab test result(s), EKG, radiologic studies. Counseling: I kdr had a detailed discussion with the patient and/or guardian regarding: the historical points, exam findings, and any diagnostic results supporting the discharge/admit diagnosis, lab results, radiology results, the need for further work-up and treatment in the hospital. 03/14 10:18 Order name: Basic Metabolic Panel; Complete Time: 12:27 bp 03/14 10:18 Order name: CBC with Diff; Complete Time: 12:27 bp 03/14 10:18 Order name: LFT's; Complete Time: 12:27 bp 03/14 10:18 Order name: Magnesium; Complete Time: 12:27 bp 03/14 10:18 Order name: NT PRO-BNP; Complete Time: 12:27 bp 03/14 10:18 Order name: PT-INR; Complete Time: 12:27 bp 03/14 10:18 Order name: Troponin (emerg Dept Use Only); Complete Time: 12:27 bp 03/14 10:18 Order name: XRAY Chest (1 view); Complete Time: 12:27 bp 03/14 10:18 Order name: EKG; Complete Time: 10:19 bp 03/14 10:19 Order name: CT Chest Abdomen Pelvis W/O Contrast; Complete Time: 12:27 kdr 03/14 10:21 Order name: COVID-19 kdr 03/14 10:59 Order name: Urine Dipstick--Ancillary (enter results); Complete Time: 12:27 em1 03/14 15:09 Order name: SARS-COV-2 RT PCR EDMS 03/14 10:18 Order name: Cardiac monitoring; Complete Time: 10:19 bp 03/14 10:18 Order name: EKG - Nurse/Tech; Complete Time: 10:19 bp 03/14 10:18 Order name: IV Saline Lock; Complete Time: 10:58 bp 03/14 10:18 Order name: Labs collected and sent; Complete Time: 10:58 bp 03/14 10:18 Order name: O2 Per Protocol; Complete Time: 10: bp 03/14 10:18 Order name: O2 Sat Monitoring; Complete Time: 10:19 bp EC:28 Rate is 53 beats/min. Rhythm is regular, Sinus bradycardia with Left bundle branch kdr block. QRS [place] is Normal. IA interval is normal. QRS interval is normal. QT interval is normal. Clinical impression: NSR w/ Non-specific ST/T Changes and LVH. Administered Medications: 10:42 Drug: Lasix 80 mg Route: IVP; Site: right antecubital; tw2 12:50 Follow up: Response: No adverse reaction tw2 Disposition: 03/14/20 12:34 Hospitalization ordered by Alin Dong for Observation. Preliminary diagnosis are Unspecified combined systolic (congestive) and diastolic (congestive) heart failure, Shortness of breath. - Bed requested for Telemetry/MedSurg (observation). - Status is Observation. bp - Condition is Fair. - Problem is an acute exacerbation. - Symptoms have improved. Signatures: Dispatcher [employer] EDSC Cali Horne MD MD kdr Martinez, Eric em1 Victorina Coelho, RN RN tw2 Dimitri Queen, JUANY RN bp Corrections: (The following items were deleted from the chart) 13:29 12:34 Hospitalization Ordered by Alin Dong DO for Observation. Preliminary em1 diagnosis is Unspecified combined systolic (congestive) and diastolic (congestive) heart failure; Shortness of breath. Bed requested for Telemetry/MedSurg (observation). Status is Observation. Condition is Fair. Problem is an acute exacerbation. Symptoms have improved. kdr 15:34 13:29 03/14/2020 12:34 Hospitalization Ordered by Alin Dong DO for Observation. bp Preliminary diagnosis is Unspecified combined systolic (congestive) and diastolic (congestive) heart failure; Shortness of breath. Bed requested for Telemetry/MedSurg (observation). Status is Observation. Condition is Fair. Problem is an acute exacerbation. Symptoms have improved. em1
--- NOTE | 2020-03-14 14:16 | P.HP ---
Certification for Inpatient Patient admitted to: Inpatient With expected LOS: >2 Midnights Patient will require the following post-hospital care: Home Health Services Practitioner: I am a practitioner with admitting privileges, knowledge of patient current condition, hospital course, and medical plan of care. Services: Services provided to patient in accordance with Admission requirements found in Title 42 Section 412.3 of the Code of Federal Regulations Patient History Date of Service: 03/14/20 Primary Care Provider: None, Cardiology-Dr. Rodrigues Reason for admission: Shortness of breath, edema History of Present Illness: 60-year-old male with history of hypertension, chronic systolic CHF with prior ejection fraction around 20%, chronic renal disease stage III, hyperlipidemia, and morbid obesity. Patient recently hospitalized on 02/16/2020. Patient was admitted for NSTEMI. Patient had heart catheterization at that time. Heart catheterization unremarkable. Patient found to have systolic CHF. Patient was sent home with diuretic therapy. Since that time he has not followed up with a PCP. He was able to follow up with his sales service professional today. Patient reported increasing shortness of breath over the last 4 days. Patient is not on a specific fluid restriction diet. He has noted increasing edema to the lower extremity. He denies any chest pain at this time. Some shortness of breath noted with exertion. He reports no nausea, vomiting. Patient was sent from Cardiology office to the hospital for further evaluation and likely admission. In the ER patient was evaluated. Blood pressure is elevated at 168/100. Patient slightly tachycardic at 111. Respiratory to 28. Room-air saturations within normal range. CBC unremarkable. Sodium 144, potassium 4.2. BUN of 21, creatinine 2.04 with a GFR 41. Glucose 108. Total bilirubin 4.4. Direct bili I 0.2. AST ALT within normal range. Alk-phos within normal range. Troponin 3.42. BNP above 2000. Urinalysis unremarkable. CT scan revealed cardiomegaly, small right pleural effusion no pericardial fusion noted. Multiple middle med iastinal lymph nodes noted varying in size from 10-16 mm. Atelectasis noted. No significant abnormality to the liver, spleen or pancreas. Patient was started on IV Lasix. Patient admitted for further evaluation and treatment. When I saw the patient ER, patient appeared stable. Blood pressure slightly improved. Patient appeared edematous to the lower extremity. Patient reports having difficulty with carvedilol due to headaches. This had been recently discontinued. He also reports he no longer takes isosorbide dinitrate and lisinopril. Allergies No Known Allergies Allergy (Verified 02/14/20 19:55) Home medications list reviewed: Yes Home Medications: Carvedilol [Coreg] 25 mg PO BID 02/14/20 Hydralazine [Apresoline*] 25 mg PO Q8H 02/14/20 Aspirin [Aspirin EC 81 MG] 81 mg PO DAILY 30 Days #30 tablet. 02/16/20 Atorvastatin Calcium [Lipitor] 1 tab PO BEDTIME 30 Days #30 tab 02/16/20 Clopidogrel Bisulfate [Plavix] 1 tab PO DAILY 30 Days #30 tablet 02/16/20 Furosemide [Lasix] 1 tab PO DAILY 30 Days #30 tablet 02/16/20 - Past Medical/Surgical History Diabetic: No -: Systolic congestive heart failure-EF 20% -: Hypertension -: Cardiomegaly -: Hyperlipidemia -: Morbid obesity -: Suspect underlying obstructive sleep apnea -: Former smoker -: Former alcohol use -: Heart catheterization 2020 -: knee surgery Psychosocial/ Personal History: Patient lives at home with his . - Family History Father -: Heart disease Mother -: Heart disease, Diabetes Brother -: Heart disease, Diabetes - Social History Smoking Status: Former smoker Alcohol use: No CD- Drugs: No Caffeine use: Yes Place of Residence: Home Review of Systems General: Weakness, Malaise Eyes: Unremarkable ENT: Unremarkable Respiratory: Shortness of Breath, SOB with Excertion, As per HPI Cardiovascular: Edema, As per HPI Gastrointestinal: Unremarkable Genitourinary: Unremarkable Musculoskeletal: Pedal edema, As per HPI Integumentary: Unremarkable Neurological: Unremarkable Lymphatics: Unremarkable Physical Examination - Physical Exam General: Alert, In no apparent distress, Oriented x3, Cooperative HEENT: Atraumatic, Normocephalic, PERRLA, Mucous membr. moist/pink Neck: Supple Respiratory: Diminished (Diminished to the bases) Cardiovascular: Abnormal pulses (Mild sinus tachycardia) Gastrointestinal: Normal bowel sounds, No ascites, No tenderness, No masses, No rebound, No guarding Musculoskeletal: No tenderness, No warmth Integumentary: Tenderness/swelling (2+ pitting edema to the lower extremities especially below the knees bilaterally.) Neurological: Normal speech, Normal strength at 5/5 x4 extr, Normal tone, Normal affect - Studies Laboratory Data (last 24 hrs) 03/14/20 10:40: PT 16.2 H, INR 1.38 03/14/20 10:40: WBC 5.4, Hgb 15.8, Hct 49.0, Plt Count 227 03/14/20 10:40: Sodium 144, Potassium 4.2, BUN 21 H, Creatinine 2.04 H, Glucose 108 H, Magnesium 2.4, Total Bilirubin 4.4 H, AST 27, ALT 36, Alkaline Phosphatase 133 H Assessment and Plan - Plan Impression: Dyspnea, edema secondary to acute on chronic systolic CHF with elevated troponin with recent prior heart catheterization unremarkable for arterial stenosis Hypertension uncontrolled Chronic renal failure stage 3 Hyperlipidemia Chronic elevated bilirubin Morbid obesity likely underlying obstructive sleep apnea CT scan she showing moderate mediastinal lymphadenopathy Plan: Dyspnea, edema secondary to acute on chronic systolic CHF with elevated troponin with recent prior heart catheterization unremarkable for arterial stenosis: Patient admitted for further evaluation and treatment. Patient was seen by Cardiology outpatient and sent to the ER for evaluation. Patient found to have acute on chronic systolic CHF. Case discussed at length with cardiology. Patient may benefit with Entresto. Will discuss with cardiology. Will start IV Lasix 80 mg 3 times a day. Will add metolazone. Will teach on fluid restriction. Will also teach on CHF, hypertension and chronic renal disease. Will consult Nephrology to further address his renal function. Elevated bilirubin noted. Will obtain abdominal ultrasound to evaluate this further along with kidneys. Will need to get his blood pressure better controlled. Will continue with his prior medications of aspirin and Plavix. Patient on DVT prophylaxis. Troponin likely elevated due to his heart failure. This was discussed in detail with cardiology. Cardiology does not suspect NSTEMI. On previous hospitalization troponin was slightly elevated. Continue with plan of care. I will turn the service over to the hospitalist team tomorrow. I will go over the plan of care with him. Hypertension uncontrolled: Patient reports carvedilol recently discontinued due to headaches. Patient also reports lisinopril was also discontinued. Patient on hydralazine as an outpatient. Will increase hydralazine to 50 mg pill 3 times a day. Will continue to monitor closely. May need to add lisinopril. Chronic renal failure stage 3: Nephrology consulted. Renal ultrasound to be obtained. Await recommendation by nephrology. Will renally adjust medication. Hyperlipidemia: Continue with home medication Lipitor 80 mg daily. Chronic elevated bilirubin: Bili Patel has been elevated in the past. Will obtain abdominal ultrasound to further evaluate. Will also check lipase. Morbid obesity likely underlying obstructive sleep apnea: Will address lifestyle modification education. Patient likely requires sleep study to be done as an outpatient to further evaluate. CT scan showing moderate mediastinal lymphadenopathy: Patient should have repeat CT scan in the near future to further monitor. Will need to likely rule out lymphoma if this continues. Discharge Plan: Home Plan to discharge in: 72 Hours - Advance Directives Does patient have a Living Will: No Does patient have a Durable POA for Healthcare: No - Code Status/Comfort Care Code Status Assessed: Yes (Patient is full code) Time Spent Managing Pts Care (In Minutes): 55
[2020-03-14 16:10] VITALS: BMI 33.7
[2020-03-14] MEDS ORDERED: ONDANSETRON 4 MG/2 ML VIAL IV PRN (16:10)
[2020-03-14] MEDS ORDERED: ACETAMINOPHEN 500 MG TAB PO PRN (16:10)
[2020-03-14] MEDS ORDERED: HYDRALAZINE HCL 20 MG/ML VIAL IV PRN (16:31)
[2020-03-14] MEDS: FUROSEMIDE 40 MG/4 ML VIAL IV SCH (16:35)
[2020-03-14] MEDS: ENOXAPARIN 40 MG/0.4 ML SQ SCH (17:00)
[2020-03-14] MEDS ORDERED: HYDRALAZINE HCL 25 MG TABLET PO SCH (17:00)
[2020-03-14] MEDS ORDERED: INFLUENZA VACCINE (for 3y+) 0.5 ML DOSE IMVAC ONE (17:00)
[2020-03-14 18:10] LABS: CKMB Creatine Kinase MB 2.7 ng/mL (0.3-3.6)
[2020-03-14 18:14] LABS: Troponin I 3.26 ng/mL (0.0-0.045)
[2020-03-14] MEDS ORDERED: METOPROLOL TARTRATE 5 MG/5 ML INJ IV PRN (18:26)
[2020-03-14] MEDS ORDERED: carvediloL 12.5 MG TAB PO SCH (19:00)
[2020-03-14 19:12] LABS: Urine Appearance CLEAR; Urine Bilirubin NEGATIVE (NEG); Urine Blood NEGATIVE (NEG); Urine Color YELLOW; Urine Glucose NEGATIVE (NEG); Urine Protein NEGATIVE (NEG); Urine Specific Gravity <=1.005 (1.005-1.030)
[2020-03-14 19:20] LABS: Urine Microscopic Reflex ORDER UMIC
[2020-03-14 20:09] LABS: Urine Bacteria NONE SEEN /HPF (NONE SEEN); Urine Culture Reflex Order REFLEXED; Urine RBC <5 /HPF (NONE SEEN)
[2020-03-14] MEDS: HYDRALAZINE HCL 25 MG TABLET PO SCH (20:54)
[2020-03-14] MEDS: ATORVASTATIN 80 MG TAB PO SCH (20:54)
[2020-03-15] MEDS: FUROSEMIDE 40 MG/4 ML VIAL IV SCH ×3 (01:01→21:14)
[2020-03-15 01:18] LABS: Troponin I 2.89 ng/mL (0.0-0.045)
[2020-03-15 05:52] LABS: Absolute Lymphocytes (CBC) 1.1 K/uL (0.7-4.9); Basophils % 0.2 % (0-1.3); Hematocrit 46.9 % (39.6-49.0); Lymphocytes % 22.8 % (15.3-44.8); MPV 9.2 fL (7.6-11.3); RBC Red Blood Cell Count 4.78 M/uL (4.33-5.43)
[2020-03-15] MEDS: carvediloL 25 MG TAB PO SCH ×2 (05:58→17:23)
[2020-03-15 06:11] LABS: Albumin 2.9 g/dL (3.4-5.0); Bilirubin Total 4.1 mg/dL (0.2-1.0); Magnesium 2.2 mg/dL (1.8-2.4); Potassium 3.2 mmol/L (3.5-5.1); Protein, Total 6.4 g/dL (6.4-8.2)
[2020-03-15] MEDS ORDERED: PANTOPRAZOLE 40MG TABLET PO SCH (07:30)
[2020-03-15] MEDS: ENOXAPARIN 40 MG/0.4 ML SQ SCH (08:09)
--- NOTE | 2020-03-15 09:02 | P.PN ---
Subjective Date of Service: 03/15/20 (Hospitalist) Primary Care Provider: None, Cardiology-Dr. Rodrigues Chief Complaint: Congestive heart failure elevated troponin Subjective: Improving (Patient is doing much better he was admitted with shortness of breath elevated troponin recent cardiac catheterization was negative he has systolic heart failure patient was diuresed compliant with his medication he does not have a regular doctor) Review of Systems General: Weakness Respiratory: Shortness of Breath Cardiovascular: Paroxysmal Noc. Dyspnea, Edema Physical Examination - Vital Signs Temperature: 97.0 F Blood Pressure: 151/92 Pulse: 76 Respirations: 18 Pulse Ox (%): 96 - Physical Exam General: Alert, In no apparent distress, Oriented x3 Neck: Supple Respiratory: Clear to auscultation bilaterally Cardiovascular: No edema, Regular rate/rhythm, Normal S1 S2 Gastrointestinal: Normal bowel sounds - Studies Laboratory Data (last 24 hrs) 03/14/20 10:40: PT 16.2 H, INR 1.38 03/14/20 10:40: WBC 5.4, Hgb 15.8, Hct 49.0, Plt Count 227 03/14/20 10:40: Sodium 144, Potassium 4.2, BUN 21 H, Creatinine 2.04 H, Glucose 108 H, Magnesium 2.4, Total Bilirubin 4.4 H, AST 27, ALT 36, Alkaline Phos phatase 133 H Assessment & Plan - Problems (Diagnosis) (1) Congestive heart failure Current Visit: Yes Status: Acute Plan: Patient is 60 years of age admitted with worsening shortness of breath he has chronic renal failure congestive heart failure mostly systolic recent cardiac catheterization was negative troponins are elevated again chemistries show baseline renal insufficiency CBCs unremarkable vital signs stable oxygenation satisfactory patient has been in significant negative fluid balance blood pressure mildly elevated awaiting Cardiology consultations most likely he has elevated troponins from his heart failure reduce dose of Lasix to 80 mg IV q.d. while hypernatremia and due to aggressive diuresis Qualifiers: Heart failure type: systolic Heart failure chronicity: acute on chronic Qualified Code(s): I50.23 - Acute on chronic systolic (congestive) heart failure Discharge Plan: Fdc
[2020-03-15] MEDS: HYDRALAZINE HCL 25 MG TABLET PO SCH ×3 (11:59→21:13)
[2020-03-15] MEDS: METOLAZONE 5 MG TABLET PO SCH (12:13)
[2020-03-15] MEDS: ASPIRIN 81 MG CHEWABLE TABLET PO SCH (12:14)
[2020-03-15] MEDS: CLOPIDOGREL 75 MG TABLET PO SCH (12:14)
--- NOTE | 2020-03-15 12:46 | RAD REPORT ---
EXAM DESCRIPTION: US - Abdomen Exam Complete - 03/15/2020 12:11 pm CLINICAL HISTORY: Elevated bili, acute on chronic renal disease COMPARISON: Chest Abd Pelvis Wo Con dated 03/14/2020 FINDINGS: Gallbladder size is normal. No gallstones, wall thickening or pericholecystic fluid. Commo n bile duct is normal with no common duct stone identified. The liver and spleen show no suspicious findings. The pancreas is normal. No hydronephrosis or suspicious mass in either kidney. Aorta and IVC show no significant finding. No ascites or bulky lymphadenopathy. Minimal pleural effusions are present not fully assessed. IMPRESSION: Normal abdominal ultrasound.
[2020-03-15] MEDS: ATORVASTATIN 80 MG TAB PO SCH (21:13)
--- NOTE | 2020-03-15 23:05 | CON ---
Date of Consultation: 03/15/2020 Chief Complaint: Elevated BUN and creatinine, chronic kidney disease stage 3. The patient was found to have elevated BUN up to 21 and creatinine 1.9. Previous blood work obtained in January showed creatinine 1.73 and BUN of 15. The patient is admitted to the hospital because of acute myocardial i nfarction, rapid troponin I was 3.42 and is plateauing. On March 15, troponin level was 2.89. The patient was found to have elevated BNP up to 8540. History Of Present Illness: The patient is a 60-year-old man with multiple medical problems. He den ies previous history of kidney disease, although he had long-term history of hypertension, chronic sy stolic congestive heart failure with ejection fraction of 20%. According to previous lab work, he ballesteros s chronic kidney disease stage 3, hyperlipidemia, morbid obesity. He was previously hospitalized in January 2020. Creatinine level was 1.7. The patient currently is admitted for non-ST elevation my ocardial infarction. He had cardiac catheterization done in January and heart catheterization was unremarkable. The patient was found to have systolic congestive heart failure, has been treated with diuretics to control volume. The patient was seen by radio maintainer. The patient was complaining of progressively worse shortness of breath and generalized weakness over last 4 days prior to this admis melissa. He does not follow specific fluid restriction. He noted edema of the lower extremity, which w as getting worse over last at least 5 to 7 days. The patient denies chest pain at this time. He is although complaining of shortness of breath with activities and exertion. He denies nausea, vomiting , or renal colic. He came to emergency room because of chest pain. He was evaluated in the emergency room and blood pr essure was 160/100. The patient had tachycardia with heart rate of 111, respiratory rate 28, room ai r saturation was within normal limits. Sodium was 144, potassium 4.2, BUN 21, creatinine 2.04, estim ated GFR 41, glucose 108, total bilirubin 4.4, direct bilirubin 0.2. Troponin level was 3.42 and BNP was above 2000. Urinalysis did not show active urinary sediment. CT scan revealed cardiomegaly, sm all right pleural effusion, no pericardial effusion, multiple mediastinal lymph nodes were noted in s ize of 10-16 mm, atelectasis was present. No significant abnormalities of the liver, spleen, or panc reas was noted. Review of Systems: General: Complaining of generalized weakness, dyspnea on exertion. Denies PND or orthopnea. Denies hemoptysis. GI: Denies nausea or vomiting. : Denies dysuria or hematuria. Musculoskeletal: Complaining of generalized body aches and osteoarthritis. All other systems reviewed and all are negative. Past Medical History: Systolic congestive heart failure, ejection fraction 20%, hypertension, cardio megaly, hyperlipidemia, morbid obesity, obstructive sleep apnea, former smoker, former alcohol use, c ardiac catheterization, knee surgery. Family History: Father with heart disease. Mother with heart disease and diabetes. Social History: Former smoker. Denies alcohol or street drugs. Physical Examination: General: The patient is awake, alert, follows commands. Eyes: Anicteric sclerae. EOMI. Ears, Nose, Mouth, and Throat: Oral mucosa moist. No pallor. Neck: No JVD. No bruits. Lungs: Diminished breath sounds at bases. Heart: S1, S2. No pericardial friction rub. Abdomen: Soft, benign, nontender. Extremities: No clubbing. No cyanosis. Laboratory Data: PT 16.2, INR 1.38. WBC 5.4, hemoglobin 15.8, hematocrit 49, platelet count 227. P otassium 4.2, sodium 144, BUN 21, creatinine 2.04, glucose 108, magnesium 2.4, total bilirubin 4.4, A ST 27, ALT 36, and AP 133. Impression And Plan: 1.Dyspnea and edema secondary to acute on chronic systolic congestive heart failure with elevated tr oponin. The patient had recent cardiac catheterization unremarkable for arterial stenosis. Hyperten melissa has not been in good control. Adjust medication as needed. Chronic renal failure stage 3, acce lerated by acute kidney injury due to cardiorenal syndrome. Monitor fluid balance. Adjust diuretic as needed. 2.CT scan showed moderate many mediastinal lymphadenopathy and the patient will need to follow up [facility] Pulmonary and hospitalist will provide further recommendation. 3.The patient has acute on chronic kidney injury with cardiorenal syndrome. Avoid nephrotoxic medic ations and continue Lasix accordingly. 4.Hypertension. The patient will continue hydralazine and lisinopril will be used for cardiorenal s yndrome and congestive heart failure. 5.Chronic kidney disease stage 3, likely due to benign nephrosclerosis and renal ultrasound was obta ined to rule out obstructive uropathy. 6.Hyperlipidemia. Continue Lipitor and monitor CK level. 7.Morbid obesity with underlying obstructive sleep apnea. Lifestyle modification as per primary [place] [facility] recommendation. ANTONIA/MODL Voice ID: [id number] Report ID: [id number]
[2020-03-16 04:17] LABS: Basophils % 0.8 % (0-1.3); Hematocrit 44.2 % (39.6-49.0); Lymphocytes % 18.1 % (15.3-44.8); MPV 8.8 fL (7.6-11.3); RBC Red Blood Cell Count 4.56 M/uL (4.33-5.43)
[2020-03-16 04:43] LABS: Albumin 2.8 g/dL (3.4-5.0); Bilirubin Total 3.5 mg/dL (0.2-1.0); Magnesium 1.9 mg/dL (1.8-2.4); Protein, Total 6.5 g/dL (6.4-8.2)
[2020-03-16 04:58] LABS: Potassium 2.8 mmol/L (3.5-5.1)
[2020-03-16] MEDS: carvediloL 25 MG TAB PO SCH ×2 (05:34→17:21)
[2020-03-16] MEDS: KCL 20 MEQ/100 mL IVPB 20 MEQ/100 ML BAG IV SCH ×4 (05:37→08:30)
[2020-03-16] MEDS ORDERED: NA CHLORIDE 0.9% 1,000 ML ONE (05:44)
[2020-03-16] MEDS: ASPIRIN 81 MG CHEWABLE TABLET PO SCH (08:18)
[2020-03-16] MEDS: HYDRALAZINE HCL 25 MG TABLET PO SCH ×2 (08:18→14:00)
[2020-03-16] MEDS: METOLAZONE 5 MG TABLET PO SCH (08:19)
[2020-03-16] MEDS: ENOXAPARIN 40 MG/0.4 ML SQ SCH (08:19)
[2020-03-16] MEDS: FUROSEMIDE 40 MG/4 ML VIAL IV SCH (08:20)
[2020-03-16] MEDS: CLOPIDOGREL 75 MG TABLET PO SCH (08:20)
--- NOTE | 2020-03-16 08:58 | P.PN ---
Subjective Date of Service: 03/16/20 Primary Care Provider: None, Cardiology-Dr. Rodrigues Chief Complaint: Congestive heart failure elevated troponin Subjective: Improving (Patient is doing much better has a significant diuresis no complaints no orthopnea) Review of Systems Unremarkable Physical Examination - Vital Signs Temperature: 97.4 F Blood Pressure: 124/87 Pulse: 72 Respirations: 17 Pulse Ox (%): 96 - Physical Exam General: Alert, In no apparent distress, Oriented x3 Respiratory: Clear to auscultation bilaterally Cardiovascular: No edema, Normal S1 S2 Assessment & Plan - Problems (Diagnosis) (1) Congestive heart failure Current Visit: Yes Status: Acute Plan: Patient admitted with congestive heart failure he is doing much better has a significant output will reduce the dose of Lasix renal function improving hypokalemic for O potassium replacement CBCs normal possible discharge home tomorrow and is not have a primary care physician will change to p.o. Lasix patient has normal abdominal ultrasound as chronic renal insufficiency Qualifiers: Heart failure type: systolic Heart failure chronicity: acute on chronic Qualified Code(s): I50.23 - Acute on chronic systolic (congestive) heart failure Discharge Plan: Home Plan to discharge in: 24 Hours
[2020-03-16] MEDS ORDERED: FUROSEMIDE 40 MG/4 ML VIAL IV SCH (09:00)
[2020-03-16] MEDS ORDERED: FUROSEMIDE 40 MG TABLET PO SCH (09:00)
[2020-03-16] MEDS ORDERED: POTASSIUM 25 MEQ EFFERV TAB PO ONE ×3 (09:00→11:51)
[2020-03-16] MEDS: ATORVASTATIN 80 MG TAB PO SCH (20:49)
[2020-03-17 04:25] LABS: Absolute Lymphocytes (CBC) 1.3 K/uL (0.7-4.9); Basophils % 0.8 % (0-1.3); Hematocrit 44.7 % (39.6-49.0); Lymphocytes % 29.3 % (15.3-44.8); MPV 8.7 fL (7.6-11.3); RBC Red Blood Cell Count 4.66 M/uL (4.33-5.43)
[2020-03-17 04:40] LABS: Albumin 2.6 g/dL (3.4-5.0); Bilirubin Total 2.3 mg/dL (0.2-1.0); Protein, Total 6.3 g/dL (6.4-8.2)
[2020-03-17 04:42] LABS: Potassium 2.9 mmol/L (3.5-5.1)
[2020-03-17] MEDS ORDERED: POTASSIUM 25 MEQ EFFERV TAB PO ONE ×2 (05:00→05:01)
[2020-03-17] MEDS: carvediloL 25 MG TAB PO SCH (05:11)
[2020-03-17] MEDS ORDERED: DOCUSATE NA 100 MG CAP PO ONE (05:29)
[2020-03-17 07:30] LABS: Urine Total Volume 24 Hours 4700 mL
[2020-03-17 07:32] LABS: UR PROTEIN 9 mg/dL (<11.9)
[2020-03-17] MEDS: ENOXAPARIN 40 MG/0.4 ML SQ SCH (08:52)
[2020-03-17] MEDS: ASPIRIN 81 MG CHEWABLE TABLET PO SCH (08:53)
[2020-03-17] MEDS: METOLAZONE 5 MG TABLET PO SCH (08:53)
[2020-03-17] MEDS: CLOPIDOGREL 75 MG TABLET PO SCH (08:53)
[2020-03-17] MEDS ORDERED: FUROSEMIDE 40 MG TABLET PO SCH (09:00)
--- NOTE | 2020-03-17 13:05 | P.DS ---
Discharge Date: 03/17/20 Primary Care Provider: None, Cardiology-Dr. Crespo Disposition: ROUTINE DISCHARGE Discharge Condition: GOOD Reason for Admission: Congestive heart failure elevated troponin Consultations: Nephrology Brief History of Present Illness: Patient is a 60-year-old male with history of hypertension, chronic systolic CHF with prior ejection fraction around 20%, chronic renal disease stage III, hyperlipidemia, and morbid obesity. Patient recently hospitalized on 02/16/2020. Patient was admitted for NSTEMI. Patient had heart catheterization at that time. Heart catheterization unremarkable. Patient found to have systolic CHF. Patient was sent home with diuretic therapy. Since that time he has not followed up with a PCP. He was able to follow up with his typewriter assembler today. Patient reported increasing shortness of breath over the last 4 days. Patient is not on a specific fluid restriction diet. He has noted increasing edema to the lower extremity. He denies any chest pain at this time. Some shortness of breath noted with exertion. He reports no nausea, vomiting. Patient was sent from Cardiology office to the hospital for further evaluation and likely admission. In the ER patient was evaluated. Blood pressure is elevated at 168/100. Patient slightly tachycardic at 111. Respiratory to 28. Room-air saturations within normal range. CBC unremarkable. Sodium 144, potassium 4.2. BUN of 21, creatinine 2.04 with a GFR 41. Glucose 108. Total bilirubin 4.4. Direct bili I 0.2. AST ALT within normal range. Alk-phos within normal range. Troponin 3.42. BNP above 2000. Urinalysis unremarkable. CT scan revealed cardiomegaly, small right pleural effusion no pericardial fusion noted. Multiple middle mediastinal lymph nodes noted varying in size from 10-16 mm. Atelectasis noted. No significant abnormality to the liver, spleen or pancreas. Patient was started on IV Lasix. Patient admitted for further evaluation and treatment. When I saw the patient ER, patient appeared stable. Blood pressure slightly improved. Patient appeared edematous to the lower extremity. Patient reports having difficulty with carvedilol due to headaches. This had been recently discontinued. He also reports he no longer takes isosorbide dinitrate and lisinopril. Hospital Course: Patient is clinically feeling much better. Patient's respiratory status continues to improve. Patient is doing much better. Patient with no new complaints. At this time, patient is stable for discharge home. Vital Signs/Physical Exam: Temp Pulse Resp BP Pulse Ox 97.6 F 77 16 100/67 98 03/17/20 08:00 03/17/20 08:53 03/17/20 08:00 03/17/20 08:53 03/17/20 08:00 General: Alert, In no apparent distress, Oriented x3 Laboratory Data at Discharge: WBC 4.6 K/uL (4.3-10.9) D 03/17/20 03:56 Hgb 14.7 g/dL (13.6-17.9) 03/17/20 03:56 Hct 44.7 % (39.6-49.0) 03/17/20 03:56 Plt Count 217 K/uL (152-406) 03/17/20 03:56 PT 16.2 SECONDS (9.5-12.5) H 03/14/20 10:40 INR 1.38 03/14/20 10:40 Sodium 135 mmol/L (136-145) L 03/17/20 03:56 Potassium 4.1 mmol/L (3.5-5.1) 03/17/20 07:27 BUN 20 mg/dL (7-18) H 03/17/20 03:56 Creatinine 1.69 mg/dL (0.55-1.3) H 03/17/20 03:56 Glucose 106 mg/dL (74-106) 03/17/20 03:56 Magnesium 2.0 mg/dL (1.8-2.4) 03/17/20 03:56 Total Bilirubin 2.3 mg/dL (0.2-1.0) H 03/17/20 03:56 AST 19 U/L (15-37) 03/17/20 03:56 ALT 22 U/L (12-78) 03/17/20 03:56 Alkaline Phosphatase 101 U/L (45-117) 03/17/20 03:56 Troponin I 2.89 ng/mL (0.0-0.045) H* 03/15/20 00:41 Triglycerides 95 mg/dL (<150) 03/15/20 05:37 Cholesterol 131 mg/dL (<200) 03/15/20 05:37 HDL Cholesterol 22 mg/dL (40-60) L 03/15/20 05:37 Cholesterol/HDL Ratio 5.95 03/15/20 05:37 Lipase 64 U/L (73-393) L 03/14/20 17:06 Home Medications: Carvedilol [Coreg] 25 mg PO BID 02/14/20 Hydralazine [Apresoline*] 25 mg PO Q8H 02/14/20 Aspirin [Aspirin EC 81 MG] 81 mg PO DAILY 30 Days #30 tablet.dr 02/16/20 Atorvastatin Calcium [Lipitor] 1 tab PO BEDTIME 30 Days #30 tab 02/16/20 Clopidogrel Bisulfate [Plavix] 1 tab PO DAILY 30 Days #30 tablet 02/16/20 Furosemide [Lasix] 1 tab PO DAILY 30 Days #30 tablet 02/16/20 Aspirin Chewable [Aspirin Chewable*] 81 mg PO DAILY #30 tab.chew 03/17/20 Atorvastatin Calcium [Lipitor] 80 mg PO BEDTIME #30 tab 03/17/20 Clopidogrel Bisulfate [Plavix*] 75 mg PO DAILY #30 tablet 03/17/20 Furosemide [Lasix*] 40 mg PO DAILY #30 tab 03/17/20 carvediloL [Coreg*] 25 mg PO BID 6AM 6PM #60 tab 03/17/20 metOLazone [Zaroxolyn*] 5 mg PO DAILY #30 tab 03/17/20 New Medications: Aspirin Chewable [Aspirin Chewable*] 81 mg PO DAILY #30 tab.chew carvediloL [Coreg*] 25 mg PO BID 6AM 6PM #60 tab Furosemide [Lasix*] 40 mg PO DAILY #30 tab Atorvastatin Calcium [Lipitor] 80 mg PO BEDTIME #30 tab Clopidogrel Bisulfate [Plavix*] 75 mg PO DAILY #30 tablet metOLazone [Zaroxolyn*] 5 mg PO DAILY #30 tab Patient Discharge Instructions: OK TO DC IV AND DC HOME. FOLLOW-UP WITH PRIMARY CARE PROVIDER, DR. CRESPO, IN 1-2 WEEKS. FOLLOW-UP WITH CARDIOLOGY IN 1-2 WEEKS. RETURN TO THE ER IF SYMPTOMS WORSEN. CALL or TEXT DR. LOPEZ AT [phone] IF ANY QUESTIONS REGARDING HOSPITAL STAY. PLEASE CALL THE FLOOR AT [phone] IF ANY MEDICATION OR NURSING QUESTIONS. Diet: AHA Activity: Fall precautions Time spent managing pt's care (in minutes): 35
[2020-03-17 13:09] VITALS: BP 107/72; TEMP 98.3
[2020-03-17 13:27] VITALS: O2SAT 93
--- NOTE | 2020-03-18 15:01 | PN ---
Date of Progress Note: 03/17/2020 Chief Complaint: Elevated BUN and creatinine, chronic kidney disease stage 3. Subjective: The patient was found to have a BUN of 21, creatinine 1.9. Previous blood work obtained in January showed creatinine 1.73 and BUN of 18. The patient is hospitalized because of acute oni cardial infarction. Repeat troponin test was done and was elevated up to 3.42 and his plateauing BNP is up to 8540. The patient is 60-year-old man with multiple medical problems. He denies history of previous kidney disease, although he has long-term history of diabetes mellitus, chronic systolic co ngestive heart failure, ejection fraction of 20%. According to the previous lab work, he had elevate d BUN and creatinine consistent with chronic kidney disease stage 3. He has history of hyperlipidemi a and obesity. The patient was seen by palliative care nurse practitioner during this admission. The patient had an abdom inal ultrasound, which did not show hydronephrosis or mass suspicious in either kidney. CT scan of t he abdomen and pelvis was done on March 14 and did not show obstructive uropathy. There was mult iple mediastinal lymph nodes and finding worrisome for lymphadenopathy and lymphoma, and workup is in itiated by primary team. The liver, spleen, pancreas, adrenal, and kidneys appeared grossly normal. Urinalysis was done and it showed white blood cells of 5-10, red blood cells less than 5. Proteinur ia panel was evaluated and total protein 24 hours showed 423 mg. Screen for proteinuria was 3+. The patient has serologies done, COVID infection results are pending. Review of Systems: Denies fever or chills. Physical Examination: Lungs: Diminished breath sounds at bases. Heart: S1, S2. Abdomen: Soft, benign. Extremities: Minimal edema. Impression And Plan: Chronic kidney disease stage 3, likely the patient has underlying cardiorenal s yndrome and benign nephrosclerosis, but there is no evidence of obstructive uropathy. There is mild proteinuria present. The patient will need to continue angiotensin receptor chhaya for blood pressu re control and anti-proteinuric effect. The patient will need to follow up with Cardiology and Nephr ology outpatient. ANTONIA/CHRISTINE Voice ID: [id number] Report ID: [id number]
--- NOTE | 2020-03-18 16:12 | EKG ---
Test Date: 2020-03-14 Test Time: 11:01:09 Propagator: ELBA MEASUREMENT RESULTS: Intervals: Rate: 53 WI: 146 QRSD: 170 QT: 506 QTc: 474 [place]: P: 29 WI: 146 QRS: -30 T: 108 INTERPRETIVE STATEMENTS: Sinus bradycardia Left axis deviation Left bundle branch block Abnormal ECG Compared to ECG 03/14/2020 10:12:03 Left bundle-branch block now present Atrial flutter no longer present Left ventricular hypertrophy no longer present Early repolarization no longer present Myocardial infarct finding no longer present Electronically Signed On 03-18-20 16:08:38 CDT by Indio Godinez
== END 2020-03-17 14:12 | disposition home or self-care (01) | DRG 280 ==
LOC: ER 09:37 → ERHOLD 13:20 → 2ND 15:29
PROVIDERS: ADMIT Family Medicine; ATTEND Hospitalist
DX: I13.0 Hypertensive heart and chronic kidney disease with heart failure and stage 1 through stage 4 chronic kidney disease, or unspecified chronic kidney disease (principal); I50.23 Acute on chronic systolic (congestive) heart failure; I21.4 Non-ST elevation (NSTEMI) myocardial infarction; N17.9 Acute kidney failure, unspecified; N18.30 Chronic kidney disease, stage 3 unspecified; E80.7 Disorder of bilirubin metabolism, unspecified; G47.33 Obstructive sleep apnea (adult) (pediatric); E78.5 Hyperlipidemia, unspecified; R59.1 Generalized enlarged lymph nodes; E66.01 Morbid (severe) obesity due to excess calories; Z68.28 Body mass index [BMI] 28.0-28.9, adult; Z79.82 Long term (current) use of aspirin; Z79.02 Long term (current) use of antithrombotics/antiplatelets; Z79.899 Other long term (current) drug therapy; Z87.891 Personal history of nicotine dependence; Z20.828 Contact with and (suspected) exposure to other viral communicable diseases
CPT/HCPCS: 36415; 71045; 71250; 74176; 76700; 80048; 80053; 80061; 80076; 81003; 81015; 82550; 82553; 83690; 83735; 83880; 84132; 84156; 84484; 85025; 85610; 86335; 87086; 87088; 93005; 96374; 99285; J0360; J1650; J1940; J3480; J7030; U0003

== ENCOUNTER 2020-12-05 17:43 | Inpatient (IN) | payer SELFPAY ==
--- OUTSIDE RECORDS SUMMARY | 2020-12-05 17:45 | XMS REPORT | Continuity of Care Document ---
:1960 Author Organization [facility] t Address [address] [place] [address] Care Team Providers Name Role Phone Unavailable Unavailable Unavailable Problems This patient has no known problems. Allergies, Adverse Reactions, Alerts This patient has no known allergies or adverse reactions. Medications This patient has no known medications. Procedures This patient has no known procedures. Encounters Start End Encounter Admission Attending Care Care Encounter Source Date/Time Date/Time Type Type Clinicians Facility Department ID 2020-01-06 Inpatient E [facility] CAR [address] [facility] H 00:31:00 Results This patient has no known results.
[2020-12-05 19:56] LABS: Protime INR 1.39
[2020-12-05 19:58] LABS: Absolute Lymphocytes (CBC) 1.9 K/uL (0.7-4.9); Basophils % 1.3 % (0-1.3); Hematocrit 42.5 % (39.6-49.0); Lymphocytes % 29.8 % (15.3-44.8); MPV 8.2 fL (7.6-11.3); RBC Red Blood Cell Count 4.44 M/uL (4.33-5.43)
[2020-12-05 20:31] LABS: Albumin 2.9 g/dL (3.4-5.0); Bilirubin Direct 0.8 mg/dL (0-0.2); Bilirubin Total 1.9 mg/dL (0.2-1.0); Magnesium 2.5 mg/dL (1.8-2.4); Potassium 4.2 mmol/L (3.5-5.1)
[2020-12-05 20:33] LABS: Troponin (Emerg Dept Use Only) 1.84 ng/mL (0.0-0.045)
--- NOTE | 2020-12-05 20:45 | RAD REPORT ---
EXAM DESCRIPTION: Jaskaran Single View12/05/2020 8:26 pm CLINICAL HISTORY: Shortness breath COMPARISON: 2019 FINDINGS: Moderate right pleural effusion suspected with right basilar atelectasis. Mild bilateral pulmonary opacities probably pulmonary edema. Heart is moderately to markedly enlarged
[2020-12-05] MEDS ORDERED: ASPIRIN 81 MG CHEWABLE TABLET ONE (21:03)
[2020-12-05] MEDS ORDERED: FUROSEMIDE 40 MG/4 ML VIAL ONE ×2 (21:39→22:32)
--- NOTE | 2020-12-05 21:41 | EDPHYS ---
Physician Documentation [facility] Name: Paco Yadav Age: 60 yrs Sex: Male : 1960 Arrival Date: 12/05/2020 Time: 17:44 Bed 7 Private MD: ED Physician Cali Horne HPI: 12/05 19:34 This 60 yrs old Black Male presents to ER via Wheelchair with complaints of Shortness jmm Of Breath. 19:34 The patient has shortness of breath at rest. Onset: The symptoms/episode began/occurred jmm gradually. The patient's shortness of breath is aggravated by nothing, is alleviated by nothing. Associated signs and symptoms: Pertinent positives: SOB, Pertinent negatives: chest pain. This is a 60 year old male with a history of CHF, HTN, MD that presents to the ED with complaints of shortness of breath beginning today. Denies chest pain. Denies fever. . Historical: - Allergies: 18:13 No Known Allergies; vg1 - Home Meds: 18:13 Aspirin Oral [Active]; Furosemide Oral [Active]; carvedilol oral [Active]; metolazone vg1 oral [Active]; Hydralazine Oral [Active]; atorvastatin oral [Active]; - PMHx: 18:13 CHF; Hypertension; Myocardial infarction; vg1 - PSHx: 18:13 Stented artery; vg1 - Immunization history:: Adult Immunizations up to date. - Social history:: Smoking status: Patient reports the use of cigarette tobacco products, denies chronic smoking, but will smoke occasionally. ROS: 19:34 Constitutional: Negative for fever, chills, and weight loss. jmm 19:34 Cardiovascular: 19:34 Respiratory: Positive for shortness of breath. 19:34 All other systems are negative. Exam: 19:34 Head/Face: atraumatic. Eyes: EOMI, no conjunctival erythema appreciated ENT: Moist jmm Mucus Membranes Neck: Trachea midline, Supple Chest/axilla: Normal chest wall appearance and motion. 19:34 Abdomen/GI: Non distended, soft Back: Normal ROM Skin: General appearance color normal MS/ Extremity: Moves all extremities, no obvious deformities appreciated, no edema noted to the lower extremities Neuro: Awake and alert, normal gait Psych: Behavior is normal, Mood is normal, Patient is cooperative and pleasant 19:34 Constitutional: The patient appears alert, awake, anxious. 19:34 Cardiovascular: Rate: tachycardic, Rhythm: regular. 19:34 Respiratory: mild respiratory distress is noted, Respirations: labored breathing, Breath sounds: are clear throughout. Vital Signs: 18:07 BP 155 / 110; Pulse 113; Resp 24; Temp 98.0; Pulse Ox 99% ; Weight 109.77 kg; Height 5 vg1 ft. 10 in. (177.80 cm); Pain 0/10; 19:45 BP 152 / 89; Pulse 112; Resp 28; Pulse Ox 100% on R/A; ak2 20:01 Resp 20; Pulse Ox 100% on 3 lpm NC; ak2 22:26 BP 159 / 105; Pulse 98; Resp 20; Pulse Ox 100% on 2 lpm NC; ak2 18:07 Body Mass Index 34.72 (109.77 kg, 177.80 cm) vg1 MDM: 19:36 Patient medically screened. [facility] 21:39 Data reviewed: vital signs, nurses notes. Counseling: I had a detailed discussion with yg the patient and/or guardian regarding: the historical points, exam findings, and any diagnostic results supporting the discharge/admit diagnosis, lab results, radiology results, the need for further work-up and treatment in the hospital. ED course: I discussed the patient with Juan Ramon Cardoza whom accepted the patient to Dr. Dodd's service. . 12/05 19:34 Order name: Basic Metabolic Panel [facility] 12/05 19:34 Order name: CBC with Diff [facility] 12/05 19:34 Order name: LFT's; Complete Time: 20:35 [facility] 12/05 19:34 Order name: Magnesium; Complete Time: 20:35 [facility] 12/05 19:34 Order name: NT PRO-BNP; Complete Time: 20:35 [facility] 12/05 19:34 Order name: PT-INR; Complete Time: 20:16 [facility] 12/05 19:34 Order name: Troponin (emerg Dept Use Only); Complete Time: 20:35 [facility] 12/05 19:34 Order name: XRAY Chest (1 view); Complete Time: 20:48 [facility] 12/05 19:34 Order name: Basic Metabolic Panel; Complete Time: 20:35 [facility] 12/05 19:34 Order name: CBC with Automated Diff; Complete Time: 20:16 [facility] 12/05 21:19 Order name: COVID-19 : Document "Date of Symptom Onset" if Symptomatic. em 12/05 22:43 Order name: SARS-COV-2 RT PCR; Complete Time: 22:58 [facility] 12/05 19:34 Order name: EKG; Complete Time: 19:35 [facility] 12/05 19:34 Order name: Cardiac monitoring; Complete Time: 20:36 [facility] 12/05 19:34 Order name: EKG - Nurse/Tech; Complete Time: 20:36 [facility] 12/05 19:34 Order name: IV Saline Lock [facility] 12/05 19:34 Order name: Labs collected and sent [facility] 12/05 19:34 Order name: O2 Per Protocol [facility] 12/05 19:34 Order name: O2 Sat Monitoring [facility] Administered Medications: 20:44 Drug: Aspirin Chewable Tablet 324 mg Route: PO; ak2 21:23 Drug: Lasix (furosemide) 40 mg Route: IVP; Site: right forearm; rr5 22:17 Drug: Lasix (furosemide) 40 mg Route: IVP; Site: right antecubital; ak2 Disposition Summary: 12/05/20 21:40 Hospitalization Ordered Hospitalization Status: Inpatient Admission [facility] Provider: Hakan Dodd Location: Telemetry/MedSurg (Inpatient) [facility] Condition: Stable [facility] Problem: an acute exacerbation [facility] Symptoms: have improved [facility] Bed/Room Type: Standard [facility] Room Assignment: 210(12/05/20 22:45) Diagnosis - Non ST elevation MD [facility] Forms: - Medication Reconciliation Form [facility] - SBAR form [facility] Addendum: 12/08/2020 07:38 Co-signature as Attending Physician, Cali Horne MD I agree with the assessment and k dr plan of care. Signatures: Dispatcher [employer] [facility] Cali Horne MD MD kdr Mickail, Joel, PA PA [facility] Juan Ramon Cardoza, GL[employer] BELT SANDER-C [employer]T SANDER-Cla1 Susy Shannon, RN RN cg Hakan Marrero RN RN rr5 Cristina Shannon RN RN vg1 Mauro Montano ak2 Corrections: (The following items were deleted from the chart) 12/05 21:37 21:20 CORONAVIRUS ordered. EDMS EDMS 22:45 21:40 [facility] cg
--- NOTE | 2020-12-05 21:41 | ER ---
Nurse's Notes [facility] Name: Paco Yadav Age: 60 yrs Sex: Male : 1960 Arrival Date: 12/05/2020 Time: 17:44 Bed 7 Private MD: Diagnosis: Non ST elevation NM Presentation: 12/05 18:07 Chief complaint: Patient states: "I've been feeling shortness of breath off and on for vg1 about a week now, and I cant seem to get any rest." Pt seems to have ISIDORO lower extremity swelling. Coronavirus screen: Client denies travel out of the [place] in the last 14 days. Ebola Screen: Patient negative for fever greater than or equal to 101.5 degrees Fahrenheit, and additional compatible Ebola Virus Disease symptoms. Initial Sepsis Screen: Does the patient meet any 2 criteria? RR > 20 per min. HR > 90 bpm. Does the patient have a suspected source of infection? No. Patient's initial sepsis screen is negative. Risk Assessment: Do you want to hurt yourself or someone else? Patient reports no desire to harm self or others. Onset of symptoms was November 28, 2020. 18:07 Method Of Arrival: Wheelchair vg1 18:07 Acuity: ANNA 3 vg1 Triage Assessment: 18:13 General: Appears in no apparent distress. uncomfortable, Behavior is calm, cooperative. vg1 Pain: Denies pain. Respiratory: Reports shortness of breath at rest cough that is dry, Breath sounds are diminished in right posterior lower lobe Onset: The symptoms/episode began/occurred about a week ago, the patient has moderate shortness of breath. Historical: - Allergies: 18:13 No Known Allergies; vg1 - Home Meds: 18:13 Aspirin Oral [Active]; Furosemide Oral [Active]; carvedilol oral [Active]; metolazone vg1 oral [Active]; Hydralazine Oral [Active]; atorvastatin oral [Active]; - PMHx: 18:13 CHF; Hypertension; Myocardial infarction; vg1 - PSHx: 18:13 Stented artery; vg1 - Immunization history:: Adult Immunizations up to date. - Social history:: Smoking status: Patient reports the use of cigarette tobacco products, denies chronic smoking, but will smoke occasionally. Screenin:46 Abuse screen: Denies threats or abuse. Denies injuries from another. Nutritional ak2 screening: No deficits noted. Tuberculosis screening: No symptoms or risk factors identified. Fall Risk None identified. Assessment: 19:45 General: Appears in no apparent distress. Pain: Denies pain. Neuro: No deficits noted. ak2 Cardiovascular: Rhythm is sinus tachycardia. Respiratory: Airway is patent Respiratory effort is labored, Respiratory pattern is tachypnea. 20:01 Respiratory: Respiratory effort is even, unlabored, Respiratory pattern is regular. ak2 20:33 Reassessment: troponin 1.84 cliff from laboratory called, ED provider aware. rr5 20:56 Reassessment: Patient and/or family updated on plan of care and expected duration. Pain ak2 level reassessed. 21:25 Reassessment: [id number] rosa maria . rr5 22:26 Reassessment: Patient and/or family updated on plan of care and expected duration. Pain ak2 level reassessed. 23:33 General: report called to rn. ak2 Vital Signs: 18:07 BP 155 / 110; Pulse 113; Resp 24; Temp 98.0; Pulse Ox 99% ; Weight 109.77 kg; Height 5 vg1 ft. 10 in. (177.80 cm); Pain 0/10; 19:45 BP 152 / 89; Pulse 112; Resp 28; Pulse Ox 100% on R/A; ak2 20:01 Resp 20; Pulse Ox 100% on 3 lpm NC; ak2 22:26 BP 159 / 105; Pulse 98; Resp 20; Pulse Ox 100% on 2 lpm NC; ak2 18:07 Body Mass Index 34.72 (109.77 kg, 177.80 cm) vg1 ED Course: 17:44 Patient arrived in ED. as 18:13 Triage completed. vg1 18:13 Arm band placed on Patient placed in waiting room, Patient notified of wait time. vg1 19:24 Devendra Andrea PA is PHCP. [facility] 19:24 Cali Horne MD is Attending Physician. jmm 19:27 Mauro Montano is Primary Nurse. ak2 19:46 Patient has correct armband on for positive identification. ak2 19:46 No provider procedures requiring assistance completed. Inserted saline lock: 20 gauge ak2 in right antecubital area, using aseptic technique. 20:26 XRAY Chest (1 view) In Process Unspecified. EDMS 21:40 Hakan Dodd MD is Hospitalizing Provider. [facility] Administered Medications: 20:44 Drug: Aspirin Chewable Tablet 324 mg Route: PO; ak2 21:23 Drug: Lasix (furosemide) 40 mg Route: IVP; Site: right forearm; rr5 22:17 Drug: Lasix (furosemide) 40 mg Route: IVP; Site: right antecubital; ak2 Outcome: 21:40 Decision to Hospitalize by Provider. jmm 23:58 Admitted to ak2 23:58 Admitted to Tele 23:58 Condition: good 23:58 Patient left the ED. ak2 Signatures: Dispatcher [employer] EDMS Devendra Andrea PA PA jmm Martinez, Amelia as Roque, Raymond, RN RN rr5 Cristina Shannon RN RN vg1 Mauro Montano [facility]
--- NOTE | 2020-12-05 23:52 | P.HP ---
Certification for Inpatient Patient admitted to: Inpatient With expected LOS: >2 Midnights Patient will require the following post-hospital care: None Practitioner: I am a practitioner with admitting privileges, knowledge of patient current condition, hospital course, and medical plan of care. Services: Services provided to patient in accordance with Admission requirements found in Title 42 Section 412.3 of the Code of Federal Regulations Patient History Date of Service: 12/05/20 Primary Care Provider: [facility], cardiology Dr. Godinez Reason for admission: NSTEMI History of Present Illness: 60-year-old male with history of chronic systolic congestive heart failure, CKD 3, hypertension, hyperlipidemia presents emergency department for shortness of breath. Patient reports increasing shortness of breath over the course of the last 2 days. Labs significant for creatinine 1.72 GFR 49 BUN 20, magnesium 2.5 t bili 0 1.9 d bili 0.8 troponin 1.84 BNP 50396. Chest x-ray demonstrates moderate right pleural effusion, mild bilateral pulmonary opacities likely edema. Patient given 80 mg Lasix IV in the emergency department, diuresing well at this time. Patient with chronic elevation and T bili/d bili has had workup in the past which was unremarkable. Last heart catheterization was and on dec and then January in 2019 without any further intervention. ED provider wishes to admit forNSTEMI. Patient denies chest pain at this time. EKG without any acute changes. Allergies No Known Allergies Allergy (Verified 02/14/20 19:55) Home Medications: Carvedilol [Coreg] 25 mg PO BID 02/14/20 Hydralazine [Apresoline*] 25 mg PO Q8H 02/14/20 Aspirin [Aspirin EC 81 MG] 81 mg PO DAILY 30 Days #30 tablet. 02/16/20 Atorvastatin Calcium [Lipitor] 1 tab PO BEDTIME 30 Days #30 tab 02/16/20 Clopidogrel Bisulfate [Plavix] 1 tab PO DAILY 30 Days #30 tablet 02/16/20 Furosemide [Lasix] 1 tab PO DAILY 30 Days #30 tablet 02/16/20 Aspirin Chewable [Aspirin Chewable*] 81 mg PO DAILY #30 tab.chew 03/17/20 Atorvastatin Calcium [Lipitor] 80 mg PO BEDTIME #30 tab 03/17/20 Clopidogrel Bisulfate [Plavix*] 75 mg PO DAILY #30 tablet 03/17/20 Furosemide [Lasix*] 40 mg PO DAILY #30 tab 03/17/20 carvediloL [Coreg*] 25 mg PO BID 6AM 6PM #60 tab 03/17/20 metOLazone [Zaroxolyn*] 5 mg PO DAILY #30 tab 03/17/20 - Past Medical/Surgical History Diabetic: No -: Systolic congestive heart failure-EF 20% -: Hypertension -: Cardiomegaly -: Hyperlipidemia -: Morbid obesity -: Suspect underlying obstructive sleep apnea -: Former smoker -: Former alcohol use -: CKD 3 -: Heart catheterization 2019x2 -: knee surgery Psychosocial/ Personal History: Patient lives at home with his . - Family History Father -: Heart disease, Other (see notes) Notes: of heart attack Mother -: Diabetes Brother -: Diabetes - Social History Smoking Status: Former smoker Alcohol use: No CD- Drugs: No Caffeine use: No Place of Residence: Home Review of Systems 10-point ROS is otherwise unremarkable Respiratory: Cough, Shortness of Breath Cardiovascular: Orthopnea, As per HPI Physical Examination - Physical Exam General: Alert, In no apparent distress, Oriented x3 HEENT: Atraumatic, PERRLA, Mucous membr. moist/pink Neck: Supple, 2+ carotid pulse no bruit, No LAD Respiratory: Normal air movement, Crackles/rales Cardiovascular: Regular rate/rhythm, Normal S1 S2, Edema Capillary refill: <2 Seconds Gastrointestinal: Normal bowel sounds, No tenderness Musculoskeletal: No tenderness Integumentary: No rashes Neurological: Normal speech, Normal strength at 5/5 x4 extr, Normal tone, Normal affect - Studies Laboratory Data (last 24 hrs) 12/05/20 19:45: PT 16.0 H, INR 1.39 12/05/20 19:45: WBC 6.50, Hgb 13.9, Hct 42.5, Plt Count 341 12/05/20 19:45: Sodium 141, Potassium 4.2, BUN 20 H, Creatinine 1.72 H, Glucose 104, Magnesium 2.5 H D, Total Bilirubin 1.9 H, AST 49 H, ALT 62, Alkaline Phosphatase 173 H Assessment and Plan - Plan Assessment NSTEMI likely secondary to demand ischemia related to Acute on chronic systolic congestive heart failure CKD 3 Hypertension Hyperlipidemia Chronic bilirubin elevation Plan NSTEMI likely secondary to demand ischemia related to Acute on chronic systolic congestive heart failure: Continue with Lasix IV 60 mg b.i.d., continue met olazone 5 mg p.o. daily. Cardiology consult in place, 1500 cc per day fluid restriction, daily weights. Trend troponins, monitor on telemetry. Patient chest pain free at this time. Last heart catheterization was in January2020 without any intervention needed at that time. Patients last echocardiogram with EF around 20%. DVT prophylaxis Lovenox CKD 3: Stable, continue to monitor closely as patient will be diuresed. Consult nephrology as necessary. Hypertension: Continue home medications Hyperlipidemia: Continue medications Chronic bilirubin elevation: Patient had ultrasound last admission, negative for any acute findings. Continue to monitor. Discharge Plan: Home Plan to discharge in: 48 Hours - Advance Directives Does patient have a Living Will: No Does patient have a Durable POA for Healthcare: No - Code Status/Comfort Care Code Status Assessed: Yes (Full code) Critical Care: No Time Spent Managing Pts Care (In Minutes): 55
[2020-12-06] MEDS ORDERED: ONDANSETRON 4 MG/2 ML VIAL IV PRN
[2020-12-06] MEDS ORDERED: ACETAMINOPHEN 500 MG TAB PO PRN
[2020-12-06] MEDS ORDERED: HYDRALAZINE HCL 20 MG/ML VIAL IV PRN (05:09)
[2020-12-06] MEDS: HYDRALAZINE HCL 25 MG TABLET PO SCH ×3 (05:17→21:06)
[2020-12-06] MEDS: carvediloL 25 MG TAB PO SCH ×2 (05:17→17:32)
[2020-12-06 06:14] LABS: Absolute Lymphocytes (CBC) 1.2 K/uL (0.7-4.9); Basophils % 1.5 % (0-1.3); Hematocrit 39.2 % (39.6-49.0); Lymphocytes % 24.7 % (15.3-44.8); MPV 8.1 fL (7.6-11.3); RBC Red Blood Cell Count 4.08 M/uL (4.33-5.43)
[2020-12-06 06:42] LABS: Albumin 2.4 g/dL (3.4-5.0); Bilirubin Total 1.6 mg/dL (0.2-1.0); Magnesium 2.2 mg/dL (1.8-2.4); Potassium 3.5 mmol/L (3.5-5.1); Protein, Total 6.8 g/dL (6.4-8.2)
[2020-12-06 06:48] LABS: Troponin I 1.64 ng/mL (0.0-0.045)
[2020-12-06] MEDS ORDERED: POTASSIUM CL SA 10 MEQ TAB PO ONE (09:00)
[2020-12-06] MEDS: Enoxaparin 120 MG/0.8 ML SYR SQ SCH ×2 (09:00→21:00)
--- NOTE | 2020-12-06 09:28 | RAD REPORT ---
EXAM DESCRIPTION: CT - Thorax Wo Con - 12/06/2020 1:17 am CLINICAL HISTORY: SOB, lymphadenopathy COMPARISON: Chest Abd Pelvis Wo Con dated 03/14/2020; Chest Single View dated 12/05/2020 TECHNIQUE: Axial 5 mm thick images of the chest were obtained without IV contrast. All CT scans are performed using dose optimization technique as appropriate and may include automated exposure control or mA/KV adjustment according to patient size. FINDINGS: No mass or dense consolidation in the left lung field. Minimal scarring changes are presen t. Ducts to pleural nodularity along the inferior aspect of the fissure is suspected to be part of pa rtial atelectasis in the left upper lobe. This may be chronic atelectasis or scarring. Pattern is not substantially different from February 2020. No left-sided pleural effusion and no left-sided pneumoth orax. Patient has a moderately large right pleural effusion representing significant increase from February 2020. Minimal ground-glass opacification in the posterior aspect of the right upper lobe is favored t o be atelectasis due to the compressive affects of the pleural effusion. More significant atelectasis changes are present in the right lower lobe. Patchy airspace opacification in the right base is brittany eved to be a concurrent right lower lobe pneumonia. Right middle lobe opacification could be atelecta sis and/or pneumonia. No pleural thickening or pleural based mass. No pneumothorax. Small reactive type mediastinal and hilar lymph nodes are present and can be monitored on subsequent imaging. Aorta and pulmonary arterial tree cannot be accurately assessed on a noncontrast study. Sign ificant cardiomegaly is present without pericardial effusion. Coronary artery calcifications are pres ent. Assessment is limited in the absence of IV contrast. No chest wall mass or abnormal axillary lymphadenopathy. IMPRESSION: Moderately large right pleural effusion increased from February 2020 imaging. Right lower lobe and right middle lobe mixed pattern of atelectasis and pneumonia. Significant cardiomegaly without pericardial effusion.
[2020-12-06] MEDS: METOLAZONE 5 MG TABLET PO SCH (09:55)
[2020-12-06] MEDS: FUROSEMIDE 40 MG/4 ML VIAL IV SCH ×2 (09:56→17:33)
--- NOTE | 2020-12-06 13:06 | P.PN ---
Subjective Date of Service: 12/06/20 Primary Care Provider: [facility], cardiology Dr. Goidnez Chief Complaint: NSTEMI Subjective: Improving (improvement overnight, but slightly more dyspneic this morning again. denies any chest pain, no other complaints) Review of Systems 10-point ROS is otherwise unremarkable Physical Examination - Vital Signs Temperature: 97 F Blood Pressure: 137/95 Pulse: 95 Respirations: 22 Pulse Ox (%): 99 - Studies Laboratory Data (last 24 hrs) 12/05/20 19:45: PT 16.0 H, INR 1.39 12/05/20 19:45: WBC 6.50, Hgb 13.9, Hct 42.5, Plt Count 341 12/05/20 19:45: Sodium 141, Potassium 4.2, BUN 20 H, Creatinine 1.72 H, Glucose 104, Magnesium 2.5 H D, Total Bilirubin 1.9 H, AST 49 H, ALT 62, Alkaline Phosphatase 173 H Assessment & Plan Physician Review Additional Text: Physical Exam General: AAOx3, mild distress HEENT: Normal conjunctiva, sclerae anicteric Respiratory: Bilateral crackles, diminished at bases bilaterally, on 3 L nasal cannula Cardiovascular: Regular rate/rhythm, Normal S1 S2, trace Edema Gastrointestinal: Soft, nontender, nondistended Integumentary: No rashes Problem list NSTEMI likely secondary to demand ischemia related to Acute on chronic systolic congestive heart failure Acute hypoxemic respiratory failure secondary to acute on chronic systolic CHF KEELY on CKD 3 Hypertension Hyperlipidemia Chronic bilirubin elevation -denies any chest pain, elevated troponin likely due to demand ischemia -continue IV Lasix 60 mg b.i.d., continue metolazone, patient reports swelling has improved -cardiology consulted -last echocardiogram with EF: 20% -suspect cardiorenal syndrome, improved with diuresis. Patient has not been f ollowing with a entry level receptionist, will consult -continue home meds as appropriate VTE: lovenox Code: full Dispo: anticipate dc home in ~48hrs Time Spent Managing Pts Care (In Minutes): 35
--- NOTE | 2020-12-06 19:36 | CON ---
Date of Consultation: 12/06/2020 Chief Complaint: Acute on chronic kidney injury, cardiorenal syndrome. History Of Present Illness: The patient is a 60-year-old male with history of chron ic systolic congestive heart failure, diminished systolic function, chronic kidney disease stage 3A, hypertension, benign nephrosclerosis, chronic cardiorenal syndrome, previous admission for acute on c hronic kidney injury back in February 2020. The patient at that time had acute coronary syndrome and was admitted for non-ST elevation myocardial infarction. The patient came to the hospital because of shortness of breath of at least 2 days duration. He had some chest discomfort. Blood work on arriv al to the hospital showed BUN 20, creatinine 1.72, total bilirubin 1.9, troponin 1.84, BNP 10,896. C hest x-ray showed moderate pleural effusion on the right, mild bilateral pulmonary opacities secondar y to pulmonary edema. The patient was treated with IV Lasix and urine output had improved with diure tics. The patient has chronic history of elevated bilirubin and has workup done in the hospital. The patient had a last heart catheterization done back in January 2020 and the patient was advised to continue conservative measures. Review of Systems: Constitutional: The patient denies chest pain today. The patient denies fever or chills. Eyes: Denies vision changes. Ears, Nose, Mouth, and Throat: Denies sore throat or earache. Respiratory: He has some shortness of breath with activities. GI: Denies nausea or vomiting. : Denies dysuria or hematuria. All other systems reviewed and all are negative. Past Medical History: Congestive heart failure, systolic dysfunction, ejection fraction 20%, hyperte nsion, cardiomegaly, hyperlipidemia, morbid obesity, chronic kidney disease stage 3A, heart catheteri zation, knee surgery. The patient is former alcohol user and former smoker. COPD. Family History: Father having heart disease. Mother with diabetes. Brother with diabetes. Social History: Former smoker. Denies alcohol or illicit drug. Physical Examination: General: The patient is awake, alert, follows commands. Eyes: Anicteric sclerae. EOMI. Ears, Nose, Mouth, and Throat: Oral mucosa moist. No pallor. Neck: Supple. No bruits. Lungs: Clear to auscultation bilaterally. Heart: S1, S2. Abdomen: Soft, benign. Extremities: No edema. No clubbing. No cyanosis. Neurological: Moving extremities. Cranial nerves intact. Laboratory Data: Potassium 4.2, BUN 20, creatinine 1.72, glucose 104, sodium 141, total bilirubin 1. 9. Impression And Plan: 1.Chronic kidney disease stage 3 with prerenal azotemia, cardiorenal syndrome. The patient has non- ST-elevation myocardial infarction secondary to ischemia, acute on chronic systolic congestive heart failure. The patient will receive Lasix for volume control and to provide management for congestive heart failure. The patient will continue combination of Lasix and metolazone. Continue to monitor e lectrolytes. 2.The patient will have cardiac workup. Previously, he had cardiac catheterization done as well. 3.Hypertension. Blood pressure control and adjust medication. 4.Hyperbilirubinemia per primary team. 5.Edema, fluid overload. Continue low-sodium diet. Continue Lasix, adjust dose according to urine output. EB/MODL Voice ID: [id number] Report ID: [id number]
[2020-12-06] MEDS: ATORVASTATIN 80 MG TAB PO SCH (21:06)
[2020-12-07] MEDS: HYDRALAZINE HCL 25 MG TABLET PO SCH (05:38)
[2020-12-07] MEDS: carvediloL 25 MG TAB PO SCH (05:38)
[2020-12-07 05:45] LABS: Absolute Lymphocytes (CBC) 1.4 K/uL (0.7-4.9); Basophils % 1.1 % (0-1.3); Hematocrit 38.1 % (39.6-49.0); Lymphocytes % 25.3 % (15.3-44.8); MPV 8.7 fL (7.6-11.3); RBC Red Blood Cell Count 3.99 M/uL (4.33-5.43)
[2020-12-07 05:55] LABS: Albumin 2.3 g/dL (3.4-5.0); Bilirubin Total 1.1 mg/dL (0.2-1.0); Magnesium 1.9 mg/dL (1.8-2.4); Potassium 3.3 mmol/L (3.5-5.1); Protein, Total 6.2 g/dL (6.4-8.2)
[2020-12-07] MEDS: Enoxaparin 120 MG/0.8 ML SYR SQ SCH (09:00)
[2020-12-07] MEDS ORDERED: POTASSIUM 25 MEQ EFFERV TAB PO ONE (09:00)
[2020-12-07] MEDS: METOLAZONE 5 MG TABLET PO SCH (09:14)
[2020-12-07] MEDS: FUROSEMIDE 40 MG/4 ML VIAL IV SCH ×2 (09:15→16:18)
--- NOTE | 2020-12-07 10:23 | RAD REPORT ---
EXAM DESCRIPTION: US - Renal Ultrasound-Complete - 12/07/2020 8:16 am CLINICAL HISTORY: Chronic renal disease COMPARISON: None. FINDINGS: The right kidney measures 10 cm with an increased echotexture. 9 millimeter cyst The left kidney measures 10 cm with an increased echotexture. 1.2 centimeter cyst Hydronephrosis is not seen. No gross abnormality of bladder is seen IMPRESSION: Mildly increased renal echotexture consistent with parenchymal disease
--- NOTE | 2020-12-07 13:04 | P.PN ---
Subjective Date of Service: 12/07/20 Primary Care Provider: [facility], cardiology Dr. Godinez Chief Complaint: NSTEMI Subjective: Improving (Breathing much more comfortably, on room air this morning. Reports episodes of shaking/waking up while sleeping last night - has these episodes intermittently at home for a long time. No chest pain. o/n telemetry with some type1/type2 av block) Review of Systems 10-point ROS is otherwise unremarkable Physical Examination - Vital Signs Temperature: 96.8 F Blood Pressure: 101/78 Pulse: 88 Respirations: 20 Pulse Ox (%): 100 Assessment & Plan Physician Review Additional Text: Physical Exam General: AAOx3, NAD HEENT: Normal conjunctiva, sclerae anicteric Respiratory: diminished at bases bilaterally, on room air Cardiovascular: Regular rate/rhythm, Normal S1 S2, trace edema to mid-tibia Gastrointestinal: Soft, nontender, nondistended Integumentary: No rashes Problem list NSTEMI likely secondary to demand ischemia related to Acute on chronic systolic congestive heart failure Acute hypoxemic respiratory failure secondary to acute on chronic systolic CHF av block, mixed KEELY on CKD 3 Hypertension Hyperlipidemia Chronic bilirubin elevation -denies any chest pain, elevated troponin likely due to demand ischemia. Cardiology consulted, agreed -decrease IV lasix from 60mg BID to 40mg BID, continue metolazone -last echocardiogram with EF: 20% -suspect cardiorenal syndrome, improved with diuresis. Patient has not been following with a complex director, consulted -continue home meds as appropriate -multiple brief episodes (few seconds) of what appears to be type1 vs type 2 av block, possible dissociation, discussed with cardiology- dc beta-chhaya, monitor, would benefit from pacemaker in near future VTE: lovenox Code: full Dispo: anticipate dc home in ~24-48hrs Time Spent Managing Pts Care (In Minutes): 35
--- NOTE | 2020-12-07 13:23 | PN ---
Date of Progress Note: 12/07/2020 Mr. Yadav was admitted and he was seen for non-ST elevation myocardial infarction, congestive hear t failure, very low ejection fraction. Previous stent, dyslipidemia, overnight was going in and out of a third-degree AV block. He had significant severe apnea. He is on carvedilol 25 mg b.i.d., stil l slightly short of breath on 60 mg of IV Lasix every 8 hours. I recommended we stop his carvedilol and watch him on Lasix, hydralazine, Lipitor, and aspirin and see how he does. If his heart rhythm r emains a problem, he may need a pacemaker down the road. He really should be a candidate for a defib rillator as well. There is an echocardiogram pending for Tuesday. We will continue to follow him. GAYATHRI/CHRISTINE Voice ID: [id number] Report ID: [id number]
--- NOTE | 2020-12-07 13:41 | CON ---
Date of Consultation: 12/06/2020 Reason For Consultation: Congestive heart failure. History Of Present Illness: Mr. Yadav is a 60-year-old black male with known congestive heart cinda lure, very low ejection fraction, known dyslipidemia and coronary artery disease, status post stent I believe in January of 2020. He follows up at the [facility], does not see a regular cardiolo gist. He comes in with congestive heart failure and hypertension. Denied chest pain. Denied nausea , vomiting, diaphoresis. Has had PND, orthopnea, pedal edema. Denied any palpitation or syncope. D enied any fever or chills. Past Medical History: As stated above. Allergies: NONE. Review of Systems: Negative. Social History: Negative. Family History: Negative. Medications: At home include metolazone 5 mg daily, Coreg 25 mg b.i.d., Lasix 40 mg daily, hydralazi ne 25 q.8, Lipitor and aspirin. Physical Examination: General: He was in mild respiratory distress. Vital Signs: Stable except his blood pressure is 172/111. He was afebrile. HEENT: Negative. Neck: Supple without any JVD, thyromegaly, bruit, or lymphadenopathy. Chest: Revealed rales both bases. Cardiac: Revealed regular rhythm and rate with an S3 gallops. No murmurs or rubs. Abdomen: Benign. Extremities: Revealed 1+ edema to the knees. Diagnostic Data: His creatinine is 1.41. Troponin is 1.84. BNP is 10,896. Chest x-ray shows CHF. EKG shows sinus rhythm with PVCs. Impression And Plan: 1.Acute on chronic systolic congestive heart failure. I agree with increased Lasix IV. 2.Hypertension, poorly controlled. We should increase his hydralazine. Consider Norvasc. Consider low-dose SHALOM inhibitor. 3.Dyslipidemia, on Lipitor. 4.Coronary artery disease, status post stent. I do not think, we are dealing with an acute coronary syndrome. I think the elevation in BNP and troponin is secondary to congestive heart failure and ki dney failure. We need to control his blood pressure, better diurese him. Consider Norvasc. Conside r SHALOM inhibitor. Consider Nephrology consultation. Continue to follow him. We should get an echoca rdiogram on Tuesday. GAYATHRI/CHRISTINE Voice ID: [id number] Report ID: [id number]
[2020-12-07] MEDS ORDERED: ENOXAPARIN 40 MG/0.4 ML SQ SCH (14:00)
[2020-12-07] MEDS: ATORVASTATIN 80 MG TAB PO SCH (20:33)
[2020-12-07 21:41] LABS: Urine Appearance CLEAR (Clear); Urine Bilirubin NEGATIVE (Negative); Urine Blood NEGATIVE (Negative); Urine Color YELLOW (Yellow); Urine Glucose NEGATIVE (Negative); Urine Protein NEGATIVE (Negative); Urine Specific Gravity <=1.005 (1.005-1.030); Urine pH 6.5 (5.0-7.0)
[2020-12-07 21:46] LABS: Urine Microscopic Reflex NO UMIC
--- NOTE | 2020-12-07 22:59 | PN ---
Date of Progress Note: 12/07/2020 Chief Complaint: Acute on chronic kidney injury, cardiorenal syndrome. History Of Present Illness: The patient remains nonoliguric and currently he is asymptomatic. He is admitted for elevated troponin level. The patient has chronic kidney disease stage 3A secondary to hypertension, benign nephrosclerosis. He has chronic cardiorenal syndrome and previously he was admi tted back in February 2020 for acute coronary syndrome. He had non-ST elevation myocardial infarction . The patient came to the hospital because of shortness of breath of at least 2 days duration and he was found to have atypical chest pain, although troponin level was elevated and Cardiology is consul andreas. The patient has congestive heart failure. BNP was 10,896. Chest x-ray showed moderate pleural effusion on the right and mild bilateral pulmonary opacities secondary to pulmonary edema, symptoms resolved with Lasix. Review of Systems: Denies PND or orthopnea. Physical Examination: Lungs: Clear to auscultation bilaterally. Heart: S1, S2. Abdomen: Soft, benign. Extremities: Minimal ankle edema. Impression And Plan: 1.Acute on chronic kidney injury. Continue Lasix for cardiorenal syndrome. 2.Atrial fibrillation. Monitor and adjust medication for heart rate control. 3.Hypertension. Continue blood pressure medication. 4.Chronic kidney disease. Renal ultrasound did not show obstructive uropathy. The patient was foun d to have benign cyst and the patient will follow up with systems designer. 5.Edema, fluid overload. Continue low-sodium diet. Continue Lasix. ANTONIA/CHRISTINE Voice ID: [id number] Report ID: [id number]
[2020-12-08 03:26] LABS: UR PROTEIN < 5 mg/dL (<11.9); Urine Protein/Creatinine Ratio ND ratio (<0.15)
[2020-12-08 04:11] LABS: Absolute Lymphocytes (CBC) 1.7 K/uL (0.7-4.9); Basophils % 1.8 % (0-1.3); Hematocrit 39.4 % (39.6-49.0); Lymphocytes % 32.3 % (15.3-44.8); MPV 8.2 fL (7.6-11.3); RBC Red Blood Cell Count 4.16 M/uL (4.33-5.43)
[2020-12-08 04:31] LABS: Albumin 2.5 g/dL (3.4-5.0); Potassium 3.3 mmol/L (3.5-5.1); Protein, Total 6.5 g/dL (6.4-8.2)
--- NOTE | 2020-12-08 08:18 | P.PN ---
Subjective Date of Service: 12/08/20 Primary Care Provider: [facility], cardiology Dr. Godinez Chief Complaint: NSTEMI Subjective: Improving (feeling better, still with dyspnea with ambulating in room, swelling improved, feels like he can take deeper breaths today) Review of Systems 10-point ROS is otherwise unremarkable Physical Examination - Vital Signs Temperature: 97 F Blood Pressure: 130/90 Pulse: 74 Respirations: 18 Pulse Ox (%): 98 Assessment & Plan Physician Review Additional Text: Physical Exam General: AAOx3, NAD HEENT: Normal conjunctiva, sclerae anicteric Respiratory: diminished at bases bilaterally, on room air Cardiovascular: Regular rate/rhythm, Normal S1 S2, trace b/l pedal edema Gastrointestinal: Soft, nontender, nondistended Integumentary: No rashes Problem list NSTEMI likely secondary to demand ischemia related to acute on chronic systolic congestive heart failure Acute hypoxemic respiratory failure secondary to acute on chronic systolic CHF AV block, mixed KEELY on CKD 3 Hypertension Hyperlipidemia Chronic bilirubin elevation -denies any chest pain, elevated troponin likely due to demand ischemia. Cardiology consulted, agreed -decreased IV lasix from 60mg BID to 40mg BID on 12/07, continue metolazone -last echocardiogram with EF: 20% -KEELY - suspect cardiorenal syndrome, improved with diuresis. Patient has not been following with a duplication specialist, consulted -improving overall, echo ordered for today, still dyspneic -multiple brief episodes (few seconds) of what appears to be type1 vs type 2 av block, possible dissociation, discussed with cardiology- dc'd beta-chhaya, monitor, would benefit from pacemaker in near future VTE: lovenox Code: full Dispo: anticipate dc home in ~24hrs Time Spent Managing Pts Care (In Minutes): 35
[2020-12-08] MEDS: ENOXAPARIN 40 MG/0.4 ML SQ SCH (08:36)
[2020-12-08] MEDS: METOLAZONE 5 MG TABLET PO SCH (08:36)
[2020-12-08] MEDS: FUROSEMIDE 40 MG/4 ML VIAL IV SCH ×2 (08:37→17:10)
[2020-12-08] MEDS: lisinopriL 5 MG TAB PO SCH (08:37)
[2020-12-08] MEDS ORDERED: POTASSIUM CL SA 10 MEQ TAB PO ONE (09:00)
--- NOTE | 2020-12-08 16:13 | EKG ---
Test Date: 2020-12-05 Test Time: 19:33:01 Telephone Directory Distributor Driver: MEASUREMENT RESULTS: Intervals: Rate: 117 MD: 166 QRSD: 102 QT: 328 QTc: 457 [place]: P: 63 MD: 166 QRS: -48 T: 38 INTERPRETIVE STATEMENTS: Sinus tachycardia with occasional premature ventricular complexes Possible Left atrial enlargement Left axis deviation Inferior infarct, age undetermined Anterolateral infarct, age undetermined Abnormal ECG Compared to ECG 03/14/2020 11:01:09 Ventricular premature complex(es) now present Myocardial infarct finding now present Sinus bradycardia no longer present Left bundle-branch block no longer present Electronically Signed On 12-08-20 16:05:35 CDT by Indio Godinez
[2020-12-08] MEDS: ATORVASTATIN 80 MG TAB PO SCH (21:00)
--- NOTE | 2020-12-09 00:23 | PN ---
Date of Progress Note: 12/08/2020 Chief Complaint: Chronic kidney injury stage 3, accelerated by acute kidney injury due to cardiorena l syndrome. History Of Present Illness: The patient has severe systolic dysfunction. He remains on Lasix and do se was decreased from 60 twice a day to 40 twice a day. Urine output . The patient was fo und to have elevated troponin and instrumentation and controls technician is following the patient. The patient has pleural eff usion and interstitial pulmonary edema. Urine output increased and creatinine level is stabilizing. The patient is to continue Lasix 40 mg twice a day and metolazone for volume control. Review of Systems: Denies fever or chills. Physical Examination: Lungs: Diminished breath sounds at bases. Heart: S1, S2. Abdomen: Soft, benign. Extremities: Edema has improved. Impression And Plan: Acute on chronic kidney injury, cardiorenal syndrome. The patient has hyperten sive heart and kidney disease as well as cardiorenal syndrome with chronic systolic dysfunction. At this point, the patient has congestive heart failure exacerbation with volume overload, thus compensa andreas congestive heart failure. Continue diuretics and monitor blood pressure. The patient was curren tly on low dose of SHALOM inhibitors for congestive heart failure. EB/MODL Voice ID: [id number] Report ID: [id number]
--- NOTE | 2020-12-09 05:49 | P.PN ---
Subjective Date of Service: 12/09/20 Primary Care Provider: [facility], cardiology Dr. Godinez Chief Complaint: NSTEMI Subjective: No new changes (No c/o inc SOB.) Physical Examination - Vital Signs Temperature: 97.6 F Blood Pressure: 122/68 Pulse: 65 Respirations: 16 Pulse Ox (%): 99 - Physical Exam General: Other (Appears as his stated age) HEENT: Atraumatic, Normocephalic Neck: Supple, JVD not distended Respiratory: Normal air movement Cardiovascular: No rubs, No murmurs Gastrointestinal: Soft and benign, Non-distended Musculoskeletal: Swelling, Other (Min BLE edema) Integumentary: No warmth Neurological: Normal speech, Normal tone Urinary: Other (No bladder distention) Assessment And Plan - Plan # CKD3a Baseline SCr 1.5 (GFR 58) Renl fxn remains at baseline Monitor renal panel # Acute respi failure 2/2 acute on chronic CHF Trop & BNP elevated Chest CT on 12/06/20 showed moderately large right pleural effusion, RLL + RML mixed pattern of atelectasis and pneumonia. Last TTE showed low LVEF 20%, candidate for Life vest / AICD but he is unfunded Cont lasix at 40 mg po bid Dc Metolazone Continue Lisinopril Urine chem on 12/09 not showing hyperaldo state but rather approp diuretic response; no indication for MRA meds Do not restrict po fluid intake unless he develops hyponatremia Strictly low Na diet long-term # Contraction alkalosis from diuretics, hypoK, hypoCl ABG on 12/09 showed metabolic alkalosis w/ approp respi compensation Start Diamox 250 mg po bid Replete K & Cl as below Cascade po fluid intake # Htn BP at goal Monitor # Hypokalemia KCl repletion received today
[2020-12-09 06:18] LABS: Magnesium 2.3 mg/dL (1.8-2.4); Potassium 3.2 mmol/L (3.5-5.1)
[2020-12-09] MEDS ORDERED: POTASSIUM CL SA 10 MEQ TAB PO ONE (06:20)
[2020-12-09 06:26] LABS: Arterial Blood Carboxyhemoglob 1.3 % (0-1.5); Blood Gas Oxyhemoglobin 82.4 % (94-97); Blood O2 Saturation 84.2 % (92-98.5)
--- NOTE | 2020-12-09 08:23 | ECHO ---
HEIGHT: 5 ft 10 in WEIGHT: 221 lb 0 oz DATE OF STUDY: 12/08/[address]: Indio Godinez MD 2-DIMENSIONAL: YES M.MODE: YES DOPPLER: YES COLOR FLOW: YES TDS: PORTABLE: DEFINITY: BUBBLE STUDY: DIAGNOSIS: CONGESTIVE HEART FAILURE CARDIAC HISTORY: CATHERIZATION: YES SURGERY: NO PROSTHETIC VALVE: NO PACEMAKER: NO MEASUREMENTS (cm) DIASTOLIC (NORMALS) SYSTOLIC (NORMALS) IVSd 1.1 (0.6-1.2) LA Diam 4.0 (1.9-4.0) LVEF 17% LVIDd 6.6 (3.5-5.7) LVIDs 6.0 (2.0-3.5) %FS 8% LVPWd 1.2 (0.6-1.2) Ao Diam 2.7 (2.0-3.7) 2 DIMENSIONAL ASSESSMENT: RIGHT ATRIUM: DILATED LEFT ATRIUM: DILATED RIGHT VENTRICLE: DILATED LEFT VENTRICLE: DILATED TRICUSPID VALVE: NORMAL MITRAL VALVE: NORMAL PULMONIC VALVE: NORMAL AORTIC VALVE: NORMAL PERICARDIAL EFFUSION: NONE AORTIC ROOT: NORMAL LEFT VENTRICULAR WALL MOTION: SEVERE GLOBAL HYPOKINESIS DOPPLER/COLOR FLOW: MILD MITRAL, AORTIC AND TRICUSPID REGURGITATION COMMENTS: SEVERE GLOBAL HYPOKINESIS. EJECTION FRACTION 12%. MILD MITRAL, AORTIC AND TRICUSPID REGURGITATION. DILATED CARDIOMYOPATHY, TECHNOLOGIST: ELINA CASH
[2020-12-09] MEDS: lisinopriL 5 MG TAB PO SCH (09:00)
[2020-12-09] MEDS: ENOXAPARIN 40 MG/0.4 ML SQ SCH (09:11)
[2020-12-09] MEDS: FUROSEMIDE 40 MG/4 ML VIAL IV SCH (09:13)
[2020-12-09] MEDS: METOLAZONE 5 MG TABLET PO SCH (09:16)
--- NOTE | 2020-12-09 14:30 | P.PN ---
Subjective Date of Service: 12/09/20 Primary Care Provider: [facility], cardiology Dr. Godinez Chief Complaint: NSTEMI Patient has no complain. He was walking around the room without oxygen on. He states his breathing is much better. Physical Examination - Vital Signs Temperature: 97.2 F Blood Pressure: 118/76 Pulse: 82 Respirations: 18 Pulse Ox (%): 98 - Physical Exam General: Alert, In no apparent distress, Oriented x3 HEENT: Mucous membr. moist/pink Neck: JVD not distended Respiratory: Clear to auscultation bilaterally, Diminished (On the right base) Cardiovascular: No edema, Regular rate/rhythm, Normal S1 S2 Gastrointestinal: Soft and benign, Non-distended, No tenderness Musculoskeletal: No swelling Integumentary: No rashes Neurological: Normal strength at 5/5 x4 extr Assessment And Plan Physician Review Additional Text: Problem list NSTEMI likely secondary to demand ischemia related to acute on chronic systolic congestive heart failure Acute hypoxemic respiratory failure secondary to acute on chronic systolic CHF AV block, mixed KEELY on CKD 3 Hypertension Hyperlipidemia Chronic bilirubin elevation Acute on chronic systolic heart failure -denies any chest pain, elevated troponin likely due to demand ischemia. Cardiology is following. -continue IV Lasix. Dose decreased to 40mg BID on 12/07, continue metolazone -echocardiogram with EF of 12% -KEELY - suspect cardiorenal syndrome, improved with diuresis. -nephrology is following. -beta-chhaya discontinued given AV block. -patient qualifies for a life vest. -need to wean oxygen before discharge. -ABG today shows hypoxia. VTE: lovenox Code: full Dispo: anticipate dc home in ~24hrs
[2020-12-09] MEDS: FUROSEMIDE 40 MG TABLET PO SCH (16:36)
[2020-12-09] MEDS: acetaZOLAMIDE 250 MG TAB PO SCH ×2 (16:36→21:54)
--- NOTE | 2020-12-09 21:13 | PN ---
Date of Progress Note: 12/08/2020 Mr. Yadav is here for severe congestive heart failure, occasional bradycardia and blocks. We stop ped his carvedilol because of heart rate and his heart rate remains low in the 40s to 50s without any hemodynamic compromise. No cardiac symptoms. No syncope. I will continue him being off the beta-b lockers. He has only been off it for basically 24 hours. He is comfortable enough. I feel comforta ble with him going home without the beta-chhaya, but Mr. Yadav really need to be followed up clos speedy. He needs to have a heart catheterization. He should have an AICD and biventricular pacemaker. I would like to see him in the office and make arrangements for him to do so as an outpatient. GAYATHRI/CHRISTINE Voice ID: [id number] Report ID: [id number]
[2020-12-09] MEDS: ATORVASTATIN 80 MG TAB PO SCH (21:54)
[2020-12-10 02:33] VITALS: BMI 31.7
[2020-12-10 06:45] VITALS: O2SAT 96
[2020-12-10 08:00] VITALS: TEMP 97.5
[2020-12-10] MEDS: lisinopriL 5 MG TAB PO SCH (08:39)
[2020-12-10] MEDS: acetaZOLAMIDE 250 MG TAB PO SCH (08:40)
[2020-12-10] MEDS: FUROSEMIDE 40 MG TABLET PO SCH (08:40)
[2020-12-10] MEDS: ENOXAPARIN 40 MG/0.4 ML SQ SCH (08:40)
[2020-12-10] MEDS ORDERED: POTASSIUM 25 MEQ EFFERV TAB PO ONE (09:00)
[2020-12-10] MEDS ORDERED: POTASSIUM CL SA 10 MEQ TAB PO ONE (09:00)
[2020-12-10 12:01] VITALS: BP 105/64
--- NOTE | 2020-12-10 13:02 | P.DS ---
Admission Date: 12/05/20 Discharge Date: 12/10/20 Primary Care Provider: [facility], cardiology Dr. Godinez Disposition: ROUTINE DISCHARGE Discharge Condition: FAIR Reason for Admission: NSTEMI Consultations: Cardiology-Dr. Godinez Brief History of Present Illness: 60-year-old gentleman with a history of chronic systolic heart failure, chronic kidney disease stage 3, hypertension, hyperlipidemia presented to the emergency department with a complaint of shortness of breath. Patient reports 2 day history of increasing shortness of breath. Troponin [place]84 [place] [address]. Chest x-ray demonstrated moderate right pleural effusion and pulmonary edema. Patient given a dose IV Lasix and admitted for further management. Hospital Course: NSTEMI likely secondary to demand ischemia related to acute on chronic systolic congestive heart failure Acute hypoxemic respiratory failure secondary to acute on chronic systolic CHF AV block, mixed KEELY on CKD 3 Hypertension Hyperlipidemia Chronic bilirubin elevation Acute on chronic systolic heart failure -patient admitted to the medical floor and treated for CHF exacerbation with IV Lasix -He denies any chest pain, elevated troponin likely due to demand ischemia. Seen by cardiology. -patient was initially requiring oxygen but was weaned off oxygen as he became compensated for CHF. -new echocardiogram with EF of 12% -KEELY - suspect cardiorenal syndrome, improved with diuresis. -seen and followed by nephrology. -discontinued Coreg given AV block. -patient qualifies for a life vest. He will follow with Dr. Godinez in the office for arrangement for cardiac catheterization and life vest. He may need AICD. -patient discharged with Lasix 40 mg b.i.d. Diamox added per nephrology for metabolic alkalosis. -patient weaned off oxygen and stable for discharge. Vital Signs/Physical Exam: Temp Pulse Resp BP Pulse Ox 97.5 F 90 18 105/64 93 12/10/20 11:59 12/10/20 11:59 12/10/20 11:59 12/10/20 11:59 12/10/20 11:59 General: Alert, In no apparent distress, Oriented x3 HEENT: Mucous membr. moist/pink Neck: JVD not distended Respiratory: Clear to auscultation bilaterally, Normal air movement Cardiovascular: No edema, Regular rate/rhythm, Normal S1 S2 Gastrointestinal: Soft and benign, Non-distended, No tenderness Musculoskeletal: No swelling, No tenderness Integumentary: No rashes Neurological: Normal strength at 5/5 x4 extr, Cranial nerves 3-12 intact Laboratory Data at Discharge: WBC 5.30 K/uL (4.3-10.9) 12/08/20 03:49 Hgb 12.8 g/dL (13.6-17.9) L 12/08/20 03:49 Hct 39.4 % (39.6-49.0) L 12/08/20 03:49 Plt Count 379 K/uL (152-406) 12/08/20 03:49 PT 16.0 SECONDS (9.5-12.5) H 12/05/20 19:45 INR 1.39 12/05/20 19:45 Sodium 135 mmol/L (136-145) L 12/10/20 05:39 Potassium 3.0 mmol/L (3.5-5.1) L 12/10/20 05:39 BUN 22 mg/dL (7-18) H 12/10/20 05:39 Creatinine 1.60 mg/dL (0.55-1.3) H 12/10/20 05:39 Glucose 110 mg/dL (74-106) H 12/10/20 05:39 Magnesium 2.3 mg/dL (1.8-2.4) 12/09/20 05:42 Total Bilirubin 1.0 mg/dL (0.2-1.0) 12/08/20 03:49 AST 24 U/L (15-37) 12/08/20 03:49 ALT 38 U/L (12-78) 12/08/20 03:49 Alkaline Phosphatase 141 U/L (45-117) H 12/08/20 03:49 Troponin I 1.63 ng/mL (0.0-0.045) H* 12/06/20 11:35 Home Medications: Aspirin [Aspirin EC 81 MG] 81 mg PO DAILY 30 Days #30 [place]. 12/10/20 Atorvastatin Calcium [Lipitor] 80 mg PO BEDTIME #30 tab 12/10/20 Furosemide [Lasix*] 40 mg PO BIDL #60 tab 12/10/20 acetaZOLAMIDE [Diamox*] 250 mg PO BID #60 tab 12/10/20 lisinopriL [Prinivil*] 2.5 mg PO DAILY #30 tab 12/10/20 New Medications: Aspirin [Aspirin EC 81 MG] 81 mg PO DAILY 30 Days #30 tablet. acetaZOLAMIDE [Diamox*] 250 mg PO BID #60 tab Furosemide [Lasix*] 40 mg PO BIDL #60 tab Atorvastatin Calcium [Lipitor] 80 mg PO BEDTIME #30 tab lisinopriL [Prinivil*] 2.5 mg PO DAILY #30 tab Diet: AHA Activity: Ad francisco Followup: Indio Godinez MD [ACTIVE - CAN ADMIT] - 1 Week NONE,NONE [Primary Care Provider] - Time spent managing pt's care (in minutes): 38
== END 2020-12-10 13:38 | disposition home or self-care (01) | DRG 280 ==
LOC: ER 17:43 → ERHOLD 22:06 → 2ND 23:43
PROVIDERS: ADMIT Hospitalist; ATTEND Internal Medicine
DX: I13.0 Hypertensive heart and chronic kidney disease with heart failure and stage 1 through stage 4 chronic kidney disease, or unspecified chronic kidney disease (principal); I21.A1 Myocardial infarction type 2; I50.23 Acute on chronic systolic (congestive) heart failure; J96.01 Acute respiratory failure with hypoxia; N17.9 Acute kidney failure, unspecified; I44.2 Atrioventricular block, complete; E87.3 Alkalosis; N18.31 Chronic kidney disease, stage 3a; E87.6 Hypokalemia; E78.5 Hyperlipidemia, unspecified; I48.91 Unspecified atrial fibrillation; I25.10 Atherosclerotic heart disease of native coronary artery without angina pectoris; E80.7 Disorder of bilirubin metabolism, unspecified; I25.2 Old myocardial infarction; Z79.82 Long term (current) use of aspirin; Z79.899 Other long term (current) drug therapy; Z79.02 Long term (current) use of antithrombotics/antiplatelets; Z87.891 Personal history of nicotine dependence; Z95.5 Presence of coronary angioplasty implant and graft; Z20.822 Contact with and (suspected) exposure to COVID-19
CPT/HCPCS: 36415; 71045; 71250; 76770; 80048; 80053; 80076; 81003; 82570; 82805; 83735; 83880; 83935; 84132; 84156; 84300; 84484; 85025; 85610; 93005; 93306; 97161; 99285; J1650; J1940; U0003

== ENCOUNTER 2020-12-28 05:52 | Emergency (ER) | payer SELFPAY ==
--- OUTSIDE RECORDS SUMMARY | 2020-12-28 05:55 | XMS REPORT | Continuity of Care Document ---
:1960 Author Organization [facility] t Address [address] [place] [address] Care Team Providers Name Role Phone Unavailable [...] Clinicians Facility Department ID 2020-01-06 Inpatient [facility] [id number] [facility] 00:31:00 Results This patient has no known results.
[2020-12-28] MEDS ORDERED: HYDROCODONE/APAP 7.5/325 MG TAB ONE (06:45)
--- NOTE | 2020-12-28 09:17 | RAD REPORT ---
EXAM DESCRIPTION: CT - Thorax Wo Con CLINICAL HISTORY: Chest pain PAIN COMPARISON: Thorax Wo Con dated 12/06/2020 FINDINGS: Mild airspace opacity is present right lung base with small moderate right pleural effusio n which has a loculated appearance. Mild atelectasis is seen in the left base. No left-sided effusion No pneumothorax. Mildly prominent lymph nodes are seen in the mediastinum. No displaced rib fracture seen. No gross upper abdominal finding. All CT scans are performed using dose optimization technique as appropriate and may include automated exposure control or mA/KV adjustment according to patient size. IMPRESSION: Airspace opacity in the right lung base with a small loculated right pleural suggests in filtrate/pneumonia. Findings appear mildly improved since 12/06/2020 comparative study.
--- NOTE | 2020-12-28 09:34 | ER ---
Nurse's Notes [facility] Name: Paco Yadav Age: 60 yrs Sex: Male : 1960 Arrival Date: 12/28/2020 Time: 05:55 Bed 16 Private MD: Diagnosis: Pneumonia, unspecified organism;Chest pain on breathing Presentation: 12/28 06:11 Chief complaint: Patient states: Pt reports he was lifting something and hurt his left ea side. Coronavirus screen: At this time, the client does not indicate any symptoms associated with coronavirus-19. Ebola Screen: No symptoms or risks identified at this time. Initial Sepsis Screen: Does the patient meet any 2 criteria? No. Patient's initial sepsis screen is negative. Does the patient have a suspected source of infection? No. Patient's initial sepsis screen is negative. Risk Assessment: Do you want to hurt yourself or someone else? Patient reports no desire to harm self or others. Onset of symptoms was December 28, 2020. 06:11 Acuity: ANNA 3 ea 06:11 Method Of Arrival: Ambulatory ea Historical: - Allergies: 06:14 No Known Allergies; ea - Home Meds: 06:14 metolazone Oral [Active]; Hydralazine Oral [Active]; Furosemide Oral [Active]; ea carvedilol Oral [Active]; atorvastatin Oral [Active]; Aspirin Oral [Active]; - PMHx: 06:14 Myocardial infarction; Hypertension; CHF; ea - PSHx: 06:14 Stented artery; ea - Immunization history:: Adult Immunizations up to date. - Social history:: Smoking status: Patient denies any tobacco usage or history of. Screenin:10 Abuse screen: Denies threats or abuse. Nutritional screening: No deficits noted. ea Tuberculosis screening: No symptoms or risk factors identified. Fall Risk None identified. Assessment: 08:40 Reassessment: Patient states feeling better. General: Appears in no apparent distress. jd3 comfortable, Behavior is calm, cooperative, appropriate for age. Pain: Denies pain. Neuro: Level of Consciousness is awake, alert, obeys commands, Oriented to person, place, time, situation. Cardiovascular: Capillary refill < 3 seconds Patient's skin is warm and dry. Rhythm is irregular. Respiratory: Airway is patent Respiratory effort is even, unlabored, Respiratory pattern is regular, symmetrical, Denies cough, shortness of breath. GI: No signs and/or symptoms were reported involving the gastrointestinal system. : No signs and/or symptoms were reported regarding the genitourinary system. EENT: No signs and/or symptoms were reported regarding the EENT system. Derm: Skin is intact, Skin is dry, Skin is normal, Skin temperature is warm. Musculoskeletal: Circulation, motion, and sensation intact. Range of motion: intact in all extremities. Vital Signs: 06:11 BP 160 / 116; Pulse 110; Resp 18; Temp 98.1; Pulse Ox 99% ; ea 08:39 BP 158 / 107; Pulse 101; Resp 25 S; Pulse Ox 96% on R/A; jd3 09:47 Pulse 100; Resp 26 S; Pulse Ox 94% on R/A; jd3 ED Course: 05:55 Patient arrived in ED. wm 06:04 Elena Dsouza F[facility]-C [facility] kb 06:04 Sesar Masterson MD is Attending Physician. kb 06:13 Triage completed. ea 06:13 Patient has correct armband on for positive identification. Bed in low position. Call ea light in reach. Side rails up X2. 06:13 Arm band placed on right wrist. Patient placed in an exam room, on a stretcher, on ea pulse oximetry. 07:12 Chest Pa And Lat (2 Views) XRAY In Process Unspecified. EDMS 07:12 Ribs Right XRAY In Process Unspecified. EDMS 08:04 David Erwin, RN is Primary Nurse. jd3 08:20 Attending Physician role handed off by Sesar Masterson MD rn 08:20 Naveed Dodd MD is Attending Physician. rn 08:52 CT Chest Wo Con In Process Unspecified. EDMS 09:46 No provider procedures requiring assistance completed. Patient did not have IV access jd3 during this emergency room visit. Administered Medications: 06:26 Drug: Hyde (HYDROcodone-acetaminophen) (7.5 mg-325 mg) 1 tabs Route: PO; ea 07:20 Follow up: Response: No adverse reaction; RASS: Alert and Calm (0) jd3 Outcome: 09:46 AMA AMA form signed jd3 09:46 Condition: stable 09:46 Discharge instructions given to patient, Instructed on follow up and referral plans. medication usage, Demonstrated understanding of follow-up care, medications, Prescriptions given X 1. 09:48 Patient left the ED. jd3 Signatures: Dispatcher [employer] Elena Goode, KHUSHBOO-Carlee CUELLO-Naveed Barger MD MD rn Antunez, Elena RN David Vernon ea, RN RN jd3 Marsh, Wendy wm
--- NOTE | 2020-12-28 09:35 | EDPHYS ---
Physician Documentation [facility] Name: Paco Yadav Age: 60 yrs Sex: Male : 1960 Arrival Date: 12/28/2020 Time: 05:55 Bed 16 Private MD: ED Physician Naveed Dodd HPI: 12/28 06:21 This 60 yrs old Black Male presents to ER via Ambulatory with complaints of right low kb chest pain. 06:21 The patient or guardian reports chest pain that is located primarily in the anterior kb chest wall, right. Onset: yesterday. The pain does not radiate. Associated signs and symptoms: Pertinent positives: None. Pertinent negatives: cough, palpitations, shortness of breath. The chest pain is described as aching, sharp. Duration: The patient or guardian reports a single episode, that is still ongoing. Modifying factors: the symptoms are aggravated by breathing, cough, deep breath, movement, palpation of area. Severity of pain: At its worst the pain was moderate in the emergency department the pain is unchanged. The patient has not experienced similar symptoms in the past. The patient has not recently seen a physician. Patient reports he lifted something heavy on Tuesday. Started having pain Tuesday morning whenever he woke up to right lower chest. Area tender to palpation, pain worse with movement, deep breath, cough. Denies shortness of breath.. Historical: - Allergies: 06:14 No Known Allergies; ea - Home Meds: 06:14 metolazone Oral [Active]; Hydralazine Oral [Active]; Furosemide Oral [Active]; ea carvedilol Oral [Active]; atorvastatin Oral [Active]; Aspirin Oral [Active]; - PMHx: 06:14 Myocardial infarction; Hypertension; CHF; ea - PSHx: 06:14 Stented artery; ea - Immunization history:: Adult Immunizations up to date. - Social history:: Smoking status: Patient denies any tobacco usage or history of. ROS: 06:20 Constitutional: Negative for fever, chills, and weight loss. kb 06:20 Cardiovascular: Positive for chest pain, with cough, with movement, of the right breast. 06:20 All other systems are negative. Exam: 06:20 Constitutional: This is a well developed, well nourished patient who is awake, alert, kb and in no acute distress. Head/Face: Normocephalic, atraumatic. ENT: Moist Mucous membranes Cardiovascular: Regular rate and rhythm with a normal S1 and S2. No gallops, murmurs, or rubs. No pulse deficits. Respiratory: Respirations even and unlabored. No increased work of breathing, no retractions or nasal flaring. Abdomen/GI: Soft, non-tender. No distention Skin: Warm, dry with normal turgor. Normal color. MS/ Extremity: Pulses equal, no cyanosis. Neurovascular intact. Full, normal range of motion. Neuro: Awake and alert, GCS 15, oriented to person, place, time, and situation. Moves all extremities. Normal gait. Psych: Awake, alert, with orientation to person, place and time. Behavior, mood, and affect are within normal limits. 06:20 Chest/axilla: Inspection: normal, Palpation: tenderness, that is moderate, of the right breast, that totally reproduces the patient's complaints. Vital Signs: 06:11 BP 160 / 116; Pulse 110; Resp 18; Temp 98.1; Pulse Ox 99% ; ea 08:39 BP 158 / 107; Pulse 101; Resp 25 S; Pulse Ox 96% on R/A; jd3 09:47 Pulse 100; Resp 26 S; Pulse Ox 94% on R/A; jd3 MDM: 06:04 Patient medically screened. kb 06:21 Data reviewed: vital signs, nurses notes. Data interpreted: Pulse oximetry: on room air kb is 99 %. Interpretation: normal. 09:01 ED course: Pt evaluated by ER physician. Recommends CT chest. kb 09:35 ED course: Pt refuses labs and admission. States he wants to go home. Educated on risks kb of leaving. Pt wants to leave AMA now and he will return for worsening symptoms. 12/28 09:29 Order name: Troponin (emerg Dept Use Only) kb 12/28 06:10 Order name: Chest Pa And Lat (2 Views) XRAY kb 12/28 06:10 Order name: Ribs Right XRAY kb 12/28 06:40 Order name: EKG; Complete Time: 06:40 kb 12/28 06:40 Order name: EKG - Nurse/Tech; Complete Time: 08:16 kb 12/28 08:32 Order name: CT Chest Wo Con; Complete Time: 09:23 kb Administered Medications: 06:26 Drug: [place] (HYDROcodone-acetaminophen) (7.5 mg-325 mg) 1 tabs Route: PO; ea 07:20 Follow up: Response: No adverse reaction; RASS: Alert and Calm (0) jd3 Disposition: 09:36 Co-signature as Attending Physician, Naveed Dodd MD I agree with the assessment and rn plan of care. PA/DIGITAL PERFORMANCE ANALYST's history reviewed, patient interviewed, and examined. HPI: 60 Year old male with right sided chest pain, no direct trauma. Thinks began after lifting ice box and water heater. My personal exam of patient reveals: + tachypnea and tachycardia, non-tender right chest wall, no crepitus. I agree with assessment and care plan and confirm the diagnosis (es) above. Disposition Summary: 12/28/20 09:34 Left Against Medical Advice Location: Home kb Problem: new kb Symptoms: are unchanged kb Condition: Stable kb Diagnosis - Pneumonia, unspecified organism kb - Chest pain on breathing kb Followup: kb - With: Emergency Department - When: As needed - Reason: Worsening of condition Followup: kb - With: Private Physician - When: 2 - 3 days - Reason: Recheck today's complaints, Continuance of care, Re-evaluation by your physician Discharge Instructions: - Discharge Summary Sheet kb - Chest Wall Pain, [id number] kb - Community-Acquired Pneumonia, Adult, [id number] kb Prescriptions: - levofloxacin 500 mg Oral Tablet - take 1 tablet by ORAL route once daily for 7 days; 7 tablet; Refills: 0, kb Product Selection Permitted Signatures: Dispatcher [employer] EDNJ Elena Dsouza, KHUSHBOO-C SIEBEL ADMINISTRATOR-Naveed Barger MD MD rn Antunez, Elena, RN RN ea Davies, Jonathon RN jd3 Corrections: (The following items were deleted from the chart) 06:24 06:21 This 60 yrs old Black Male presents to ER via Ambulatory with complaints of kb Breathing Difficulty - PAIN ON RIGHT SIDE. kb
[2020-12-28 09:55] VITALS: TEMP 98.1
[2020-12-28 09:57] VITALS: BP 158/107
--- NOTE | 2020-12-28 09:57 | RAD REPORT ---
EXAM DESCRIPTION: RAD - Chest Pa And Lat (2 Views) - 12/28/2020 7:12 am CLINICAL HISTORY: RIB PAIN - RIGHT Chest pain. COMPARISON: Chest Single View dated 12/05/2020; Chest Single View dated 03/14/2020; Chest Single View dated 02/14/2020 FINDINGS: Mild pleural and parenchymal opacification involves the inferior right hemithorax likely a ttributable to pleural effusion and infiltrate. The heart is normal in size. No displaced fractures.
[2020-12-28 09:58] VITALS: O2SAT 94
--- NOTE | 2020-12-28 09:59 | RAD REPORT ---
EXAM DESCRIPTION: RAD - Ribs Right - 12/28/2020 7:12 am CLINICAL HISTORY: PAIN Trauma right-sided rib pain COMPARISON: Chest Pa And Lat (2 Views) dated 12/28/2020 FINDINGS: No evidence of a displaced right-sided rib fracture seen. No aggressive rib lesion evident .
--- NOTE | 2020-12-29 09:07 | EKG ---
Test Date: 2020-12-28 Test Time: 08:10:38 Fire Investigator: CARLIE MEASUREMENT RESULTS: Intervals: Rate: 100 ND: 178 QRSD: 110 QT: 372 QTc: 479 Sheldon: P: 88 ND: 178 QRS: -43 T: 97 INTERPRETIVE STATEMENTS: Normal sinus rhythm Possible Left atrial enlargement Left axis deviation Left ventricular hypertrophy with repolarization abnormality Cannot rule out Septal infarct, age undetermined Lateral infarct, age undetermined Inferior infarct, age undetermined Abnormal ECG Compared to ECG 12/05/2020 19:33:01 Left ventricular hypertrophy now present Early repolarization now present Sinus tachycardia no longer present Ventricular premature complex(es) no longer present Myocardial infarct finding still present Electronically Signed On 12-29-20 09:04:09 CDT by Indio Godinez
== END 2020-12-28 09:48 | disposition left against medical advice (07) ==
LOC: ER 05:52
DX: J18.9 Pneumonia, unspecified organism (principal); I10 Essential (primary) hypertension; I50.9 Heart failure, unspecified; Z79.82 Long term (current) use of aspirin
CPT/HCPCS: 71046; 71250; 93005; 99284

== ENCOUNTER 2021-05-29 04:12 | Inpatient (IN) | payer OTHER, SELFPAY ==
--- OUTSIDE RECORDS SUMMARY | 2021-05-29 04:17 | XMS REPORT | Continuity of Care Document ---
:1960 Author Organization [facility] t Address [address] [place] [address] Care Team Providers Name Role Phone PITO APARICIO Attending Clinician Unavailable MEGHA Admitting Clinician Unavailable Problems This patient has no known problems. Allergies, Adverse Reactions, Alerts This patient has no known allergies or adverse reactions. Medications This patient has no known medications. Procedures This patient has no known procedures. Encounters Start End Encounter Admission Attending Care Care Encounter Source Date/Time Date/Time Type Type Clinicians Facility Department ID 2020-01-06 2020-01-08 Inpatient E [facility] [id number] [facility] 00:31:00 18:00:00 NEREIDA Results This patient has no known results.
[2021-05-29] MEDS ORDERED: predniSONE 20 MG TAB ONE (08:25)
[2021-05-29] MEDS ORDERED: LEVALBUTEROL 1.25 MG/3 ML NEB ONE ×2 (08:26→08:27)
--- NOTE | 2021-05-29 09:16 | RAD REPORT ---
EXAM DESCRIPTION: Jaskaran Single View05/29/2021 8:43 am CLINICAL HISTORY: cough COMPARISON: December 2020 FINDINGS: The lungs are mildly hazy. Heart is moderately to markedly enlarged IMPRESSION: Lungs are mildly hazy probably a mild pneumonia
[2021-05-29 09:24] LABS: Absolute Lymphocytes (CBC) 0.9 K/uL (0.7-4.9); Lymphocytes % 17.4 % (15.3-44.8); MPV 8.1 fL (7.6-11.3); RBC Red Blood Cell Count 5.12 M/uL (4.33-5.43)
[2021-05-29 09:50] LABS: Potassium 3.4 mmol/L (3.5-5.1)
[2021-05-29 09:54] LABS: Troponin (Emerg Dept Use Only) 1.19 ng/mL (0.0-0.045)
[2021-05-29] MEDS ORDERED: ASPIRIN 81 MG CHEWABLE TABLET ONE (10:45)
--- NOTE | 2021-05-29 10:46 | EDPHYS ---
Physician Documentation [facility] Name: Paco Yadav Age: 61 yrs Sex: Male : 1960 Arrival Date: 05/29/2021 Time: 04:26 Bed 26 Private MD: ED Physician Naveed Dodd HPI: 05/29 08:05 This 61 yrs old Black Male presents to ER via Ambulatory with complaints of Cough, rn Congestion, Dizziness, Nausea. 08:05 The patient or guardian reports cough, described as mild. Onset: The symptoms/episode rn began/occurred 2 day(s) ago. Severity of symptoms: At their worst the symptoms were mild, in the emergency department the symptoms are unchanged. Modifying factors: The symptoms are alleviated by nothing, the symptoms are aggravated by exertion. Associated signs and symptoms: Pertinent positives: rhinorrhea. 08:07 The patient has not experienced similar symptoms in the past. The patient has not rn recently seen a physician. Pt reports 2 days of cough and congestion, + sob with exertion, + jail smoker in past. sick recently but she is getting better, patient not vaccinated. Denies using inhalers or nebulizer at home.. Historical: - Allergies: 08:15 No Known Allergies; ballesteros - Home Meds: 08:15 Aspirin Oral [Active]; atorvastatin Oral [Active]; carvedilol Oral [Active]; Furosemide ballesteros Oral [Active]; Hydralazine Oral [Active]; metolazone Oral [Active]; - PMHx: 08:15 Hypertension; CHF; Myocardial infarction; ballesteros - PSHx: 08:15 Stented artery; ballesteros - Immunization history:: Adult Immunizations up to date. - Social history:: Smoking status: Patient reports the use of cigarette tobacco products, smokes one-half pack cigarettes per day. - Family history:: not pertinent. - Hospitalizations: : No recent hospitalization is reported. ROS: 08:07 Constitutional: + chills and malaise Eyes: Negative for injury, pain, redness, and lab intern, ENT: + congestion Neck: Negative for injury, pain, and swelling, Cardiovascular: Negative for chest pain, palpitations, and edema, Respiratory: + cough and sob Abdomen/GI: + nausea : Negative for injury, bleeding, discharge, and swelling, MS/Extremity: Negative for injury and deformity, Skin: Negative for injury, rash, and discoloration, Neuro: Negative for numbness, tingling, and seizure. Exam: 08:07 Constitutional: This is a well developed, well nourished patient who is awake, alert, rn and in no acute distress. Head/Face: Normocephalic, atraumatic. Eyes: Periorbital areas with no swelling, redness, or edema. ENT: No stridor Cardiovascular: Regular rate and rhythm. No pulse deficits. Respiratory: Speaking full sentences, unlabored. No retractions. Abdomen/GI: Soft, non-tender Skin: Warm, dry MS/ Extremity: Pulses equal, no cyanosis. Neuro: Awake and alert, GCS 15 Vital Signs: 07:55 BP 145 / 103; Pulse 94; Resp 18; Temp 99.1; Pulse Ox 96% on R/A; Weight 97.52 kg; al4 Height 5 ft. 11 in. (180.34 cm); 10:00 BP 140 / 97; Pulse 91; Resp 14 S; Pulse Ox 93% on R/A; al4 10:40 Pulse 92; Resp 14; Pulse Ox 92% ; Pain 0/10; al4 10:48 BP 149 / 99; Pulse 91; Resp 15 S; Pulse Ox 93% on R/A; Pain 0/10; al4 11:48 BP 126 / 79; Pulse 92; Resp 14 S; Pulse Ox 94% on R/A; Pain 0/10; al4 13:00 BP 109 / 76; Pulse 86; Resp 22 S; Pulse Ox 93% on R/A; Pain 0/10; al4 13:57 BP 118 / 79; Pulse 83; Resp 20 S; Pulse Ox 93% on R/A; Pain 0/10; al4 15:04 BP 120 / 91; Pulse 88; Resp 18 S; Pulse Ox 93% on R/A; al4 16:27 BP 139 / 92; Pulse 83; Resp 20 S; Pulse Ox 92% on R/A; al4 17:27 BP 149 / 99; Pulse 76; Resp 15 S; Pulse Ox 91% on R/A; al4 18:46 BP 139 / 95; Pulse 86; Resp 24; Pulse Ox 94% ; al4 20:23 BP 137 / 100; Pulse 79; Resp 16; Pulse Ox 96% on 2 lpm SINDY; maurice 07:55 Body Mass Index 29.99 (97.52 kg, 180.34 cm) al4 MDM: 07:53 Patient medically screened. rn 10:41 Differential Diagnosis: Bronchitis Influenza Upper Respiratory Infection Viral Syndrome rn Pneumonia Other acute OH, CAD, pericarditis. Data reviewed: vital signs, nurses notes, lab test result(s), EKG, radiologic studies, plain films, and as a result, I will admit patient. Counseling: I had a detailed discussion with the patient and/or guardian regarding: the historical points, exam findings, and any diagnostic results supporting the discharge/admit diagnosis, lab results, radiology results, the need for further work-up and treatment in the hospital. Response to treatment: the patient's symptoms have mildly improved after treatment, and as a result, I will admit patient. Admission orders: after a detailed discussion of the patient's condition and case, the admit orders are written by me. ED course: Pt with oxygen saturation that ranges from 88%-93%, CXR with possible early pneumonia, elevated troponin. ECG without acute ischemia. Only had brief 5 min episode of chest pain and diaphoresis while in ER and none prior to arrival. Most likely infectious etiology with pneumonia, given recently ill with same symptoms as well. . 10:44 Data interpreted: Pulse oximetry: on room air is 90 %. Interpretation: hypoxia. Plan: rn O2 by SINDY applied. 11:38 ED course: Message relayed to me that administration here want patient transferred due rn to lack of hospital beds at this facility. Attempting transfer but the last recheck there were no beds.. 17:56 ED course: Pt was declined by [facility] earlier due to COVID + status, admitted to [facility].. 05/29 08:07 Order name: Flu rn 05/29 08:07 Order name: Strep; Complete Time: 12:00 rn 05/29 08:44 Order name: CBC with Diff; Complete Time: 09:48 rn 05/29 08:44 Order name: Basic Metabolic Panel; Complete Time: 12:00 rn 05/29 08:44 Order name: Troponin (emerg Dept Use Only); Complete Time: 12:00 rn 05/29 09:21 Order name: Blood Culture Adult (2) rn 05/29 09:21 Order name: Procalcitonin rn 05/29 09:21 Order name: Procalcitonin; Complete Time: 12:00 EDMS 05/29 10:16 Order name: COVID-19/FLU A+B; Complete Time: 12:00 EDMS 05/29 10:46 Order name: Throat Culture EDAR 05/29 10:47 Order name: LAB Add On eb 05/29 10:47 Order name: NT PRO-BNP; Complete Time: 12:00 EDMS 05/29 07:10 Order name: XRAY Chest (1 view); Complete Time: 09:17 rn 05/29 10:12 Order name: EKG; Complete Time: 10:13 rn 05/29 13:03 Order name: Diet Heart Healthy; Complete Time: 13:03 al4 05/29 18:01 Order name: CONS Physician Consult EDAR 05/29 18:01 Order name: Echo with Doppler EDAR 05/29 18:01 Order name: CBC with Automated Diff EDAR 05/29 18:01 Order name: CBC with Automated Diff EDAR 05/29 18:01 Order name: Lipid Profile EDAR 05/29 18:01 Order name: Lipid Profile [facility] 05/29 18:01 Order name: Troponin I EDAR 05/29 18:01 Order name: Troponin I EDAR 05/29 18:01 Order name: Troponin I EDAR 05/29 08:44 Order name: Cardiac monitoring; Complete Time: 08:50 rn 05/29 08:44 Order name: IV Start; Complete Time: 10:00 rn 05/29 10:12 Order name: EKG - Nurse/Tech; Complete Time: 10:36 rn 05/29 18:01 Order name: EKG Electrocardiogram EDAR 05/29 18:01 Order name: EKG Electrocardiogram EDAR Administered Medications: 08:42 Drug: predniSONE 60 mg Route: PO; al4 09:42 Follow up: Response: No adverse reaction al4 08:42 Drug: Xopenex (levalbuterol) 1.25 mg Route: Inhalation; al4 09:42 Follow up: Response: No adverse reaction al4 10:48 Drug: Aspirin Chewable Tablet 324 mg Route: PO; al4 11:51 Follow up: Response: No adverse reaction al4 11:06 Drug: LevaQUIN (levofloxacin) 750 mg Volume: 150 ml; Route: IVPB; Infused Over: 90 al4 mins; Site: left wrist; 12:36 Follow up: Response: No adverse reaction; IV Status: Completed infusion al4 Disposition Summary: 05/29/21 10:45 Hospitalization Ordered Hospitalization Status: Inpatient Admission rn Provider: P[facility] Curtis rn Condition: Stable rn Problem: new rn Symptoms: have improved rn Bed/Room Type: Standard rn Location: Telemetry/MedSurg (Inpatient)(05/29/21 20:05) mw Room Assignment: 410(05/29/21 20:05) mw Diagnosis - Dyspnea, unspecified rn - Chest pain, unspecified rn - Pneumonia due to SARS-associated coronavirus rn Forms: - Medication Reconciliation Form rn - SBAR form rn Signatures: Dispatcher [employer] EDMS Giselle Bhatt RN Amanda Hays RN Renetta Matos RN Naveed Girard MD MD rn Ledbetter, Alexis al4 Ashlie-StageMadison rao RN JUANY ballesteros Corrections: (The following items were deleted from the chart) 07:10 07:06 Allergies: No Known Allergies; bb bb 07:10 07:06 Immunization history: Adult Immunizations up to date, bb bb 07:10 07:06 Social history: Smoking status: Patient denies any tobacco usage or history of. bbbb 10:16 08:02 SARS-COV-2 RT PCR+MOL.LAB.BRZ ordered. EDMS EDMS 10:16 08:07 Influenza Screen (A ordered. EDMS EDMS 11:54 10:45 Pneumonia, unspecified organism rn rn 19:36 10:45 Telemetry/MedSurg (Inpatient) rn dw 19:36 10:45 rn dw 20:05 19:36 [facility] ER HOLD [facility] 20:05 19:36 ERHOLD- [facility]
--- NOTE | 2021-05-29 10:46 | ER ---
Nurse's Notes [facility] Name: Paco Yadav Age: 61 yrs Sex: Male : 1960 Arrival Date: 05/29/2021 Time: 04:26 Bed 26 Private MD: Diagnosis: Dyspnea, unspecified;Chest pain, unspecified;Pneumonia due to SARS-associated coronavirus Presentation: 05/29 07:55 Chief complaint: Patient states: cough, congesting, dizziness, nausea. Coronavirus al4 screen: Vaccine status: Patient reports being unvaccinated. Ebola Screen: Patient denies travel to an Ebola-affected area in the 21 days before illness onset. Initial Sepsis Screen: Does the patient meet any 2 criteria? No. Patient's initial sepsis screen is negative. Does the patient have a suspected source of infection? No. Patient's initial sepsis screen is negative. Risk Assessment: Do you want to hurt yourself or someone else? Patient reports no desire to harm self or others. Onset of symptoms was May 24, 2021. 07:55 Method Of Arrival: Ambulatory al4 07:55 Acuity: ANNA 3 al4 07:55 Note triage done by JUANY Wallace. al4 Triage Assessment: 08:15 General: Appears in no apparent distress. Behavior is calm, cooperative. Pain: ballesteros Complains of pain in chest. Respiratory: Reports shortness of breath cough that is non-productive, Breath sounds are clear bilaterally. Historical: - Allergies: 08:15 No Known Allergies; ballesteros - Home Meds: 08:15 Aspirin Oral [Active]; atorvastatin Oral [Active]; carvedilol Oral [Active]; Furosemide ballesteros Oral [Active]; Hydralazine Oral [Active]; metolazone Oral [Active]; - PMHx: 08:15 Hypertension; CHF; Myocardial infarction; ballesteros - PSHx: 08:15 Stented artery; ballesteros - Immunization history:: Adult Immunizations up to date. - Social history:: Smoking status: Patient reports the use of cigarette tobacco products, smokes one-half pack cigarettes per day. - Family history:: not pertinent. - Hospitalizations: : No recent hospitalization is reported. Screenin:16 Abuse screen: Denies threats or abuse. Denies injuries from another. Nutritional ballesteros screening: No deficits noted. Tuberculosis screening: No symptoms or risk factors identified. Fall Risk None identified. Assessment: 08:15 General: Appears in no apparent distress. comfortable, Behavior is calm, cooperative. al4 Pain: Denies pain. Neuro: Level of Consciousness is awake, alert, obeys commands, Oriented to person, place, time. Cardiovascular: Heart tones present Capillary refill < 3 seconds Patient's skin is warm and dry. Respiratory: Airway is patent Respiratory effort is even, unlabored, Respiratory pattern is regular, symmetrical, Breath sounds are clear bilaterally. GI: No signs and/or symptoms were reported involving the gastrointestinal system. : No signs and/or symptoms were reported regarding the genitourinary system. EENT: No signs and/or symptoms were reported regarding the EENT system. Derm: No signs and/or symptoms reported regarding the dermatologic system. Musculoskeletal: No signs and/or symptoms reported regarding the musculoskeletal system. 08:16 Cardiovascular: Patient's skin is warm and dry. Respiratory: Airway is patent. ballesteros 08:46 Reassessment: patient stated he had a quick episode of "chest pain" 10/10 and started al4 sweating. pain has decreased, sweating has stopped. physician aware and put in new orders. pain is currently back to 0/10. 10:00 Reassessment: Patient is alert, oriented x 3, equal unlabored respirations, skin al4 warm/dry/pink. patient is sleeping. Patient denies pain at this time. Patient states feeling better. 10:49 Reassessment: Patient and/or family updated on plan of care and expected duration. Pain al4 level reassessed. Patient is alert, oriented x 3, equal unlabored respirations, skin warm/dry/pink. Patient denies pain at this time. 11:08 Reassessment: patient was able to ambulate to restroom. patient is alert and oriented. al4 denies pain. call light at bedside. patient is resting comfortably. 11:31 Reassessment: Patient and/or family updated on plan of care and expected duration. Pain al4 level reassessed. pt is resting comfortably. call light and cell phone at bedside. 11:47 Reassessment: No changes from previously documented assessment. Patient and/or family al4 updated on plan of care and expected duration. Pain level reassessed. Patient is alert, oriented x 3, equal unlabored respirations, skin warm/dry/pink. Patient denies pain at this time. 12:30 Reassessment: working on getting diet orders for patient. al4 13:00 Reassessment: patient updated on status of diet order. al4 13:04 Reassessment: No changes from previously documented assessment. Patient and/or family al4 updated on plan of care and expected duration. Pain level reassessed. Patient is alert, oriented x 3, equal unlabored respirations, skin warm/dry/pink. 13:45 Reassessment: patient finished food. patient ambulated to restroom. al4 15:05 Reassessment: No changes from previously documented assessment. Patient and/or family al4 updated on plan of care and expected duration. Pain level reassessed. 16:27 Reassessment: No changes from previously documented assessment. Patient is alert, al4 oriented x 3, equal unlabored respirations, skin warm/dry/pink. 17:02 Reassessment: No changes from previously documented assessment. Patient and/or family al4 updated on plan of care and expected duration. Pain level reassessed. Patient is alert, oriented x 3, equal unlabored respirations, skin warm/dry/pink. 17:33 Reassessment: patient finished dinner. patient is sleeping. call light within reach. al4 18:47 Reassessment: No changes from previously documented assessment. Patient and/or family al4 updated on plan of care and expected duration. Pain level reassessed. Patient denies pain at this time. patient states he has 0/10 pain, and is just tired. patient is alert and oriented. call light and cell phone at bedside. . 20:25 General: The pt was received to room 26 and placed on the monitor. He denies any pain maurice and is resting and watching TV. He is awaiting a bed on the floor. . 20:42 General: Report was called on the pt, as he is going to room 410. The pt was notified, maurice as well as, registration. He remains in NAD watching TV. . 22:01 General: Registration called for the pt to be "flipped" and paperwork to be brought. . maurice Vital Signs: 07:55 BP 145 / 103; Pulse 94; Resp 18; Temp 99.1; Pulse Ox 96% on R/A; Weight 97.52 kg; al4 Height 5 ft. 11 in. (180.34 cm); 10:00 BP 140 / 97; Pulse 91; Resp 14 S; Pulse Ox 93% on R/A; al4 10:40 Pulse 92; Resp 14; Pulse Ox 92% ; Pain 0/10; al4 10:48 BP 149 / 99; Pulse 91; Resp 15 S; Pulse Ox 93% on R/A; Pain 0/10; al4 11:48 BP 126 / 79; Pulse 92; Resp 14 S; Pulse Ox 94% on R/A; Pain 0/10; al4 13:00 BP 109 / 76; Pulse 86; Resp 22 S; Pulse Ox 93% on R/A; Pain 0/10; al4 13:57 BP 118 / 79; Pulse 83; Resp 20 S; Pulse Ox 93% on R/A; Pain 0/10; al4 15:04 BP 120 / 91; Pulse 88; Resp 18 S; Pulse Ox 93% on R/A; al4 16:27 BP 139 / 92; Pulse 83; Resp 20 S; Pulse Ox 92% on R/A; al4 17:27 BP 149 / 99; Pulse 76; Resp 15 S; Pulse Ox 91% on R/A; al4 18:46 BP 139 / 95; Pulse 86; Resp 24; Pulse Ox 94% ; al4 20:23 BP 137 / 100; Pulse 79; Resp 16; Pulse Ox 96% on 2 lpm NC; maurice 07:55 Body Mass Index 29.99 (97.52 kg, 180.34 cm) al4 ED Course: 04:26 Patient arrived in ED. ja2 07:06 Triage completed. bb 07:53 Naveed Dodd MD is Attending Physician. rn 08:12 Linus Page is Primary Nurse. al4 08:15 Arm band placed on. ballesteros 08:16 Patient has correct armband on for positive identification. Placed in gown. Bed in low ballesteros position. 08:16 No provider procedures requiring assistance completed. ballesteros 08:44 XRAY Chest (1 view) In Process Unspecified. EDMS 08:45 quality control supervisor on. Pulse ox on. NIBP on. al4 10:15 Inserted saline lock: 22 gauge in left wrist, using aseptic technique. Blood collected. al4 10:15 Missed attempt(s): 20 gauge in left forearm. Bleeding controlled, band aid applied, al4 catheter tip intact. 10:16 Missed attempt(s): 24 gauge in left hand. Bleeding controlled, band aid applied, al4 catheter tip intact. 10:16 Flu Sent. al4 10:20 Blood Culture Adult (2) Sent. al4 10:20 Procalcitonin Sent. al4 10:21 Procalcitonin Sent. al4 10:45 Puma Curtis MD is Hospitalizing Provider. rn 10:53 LAB Add On Sent. ballesteros 13:26 Diet tray given. al4 13:58 IV discontinued, intact, bleeding controlled, No redness/swelling at site. IV al4 accidentally removed by patient. 15:08 Door closed. Noise minimized. Lights dimmed. Warm blanket given. al4 16:58 Diet tray given. al4 17:55 Door closed. Noise minimized. Lights dimmed. al4 19:14 Inserted saline lock: 20 gauge in right antecubital area, using aseptic technique. al4 ,using aseptic technique. started by JUANY Wallace. Administered Medications: 08:42 Drug: predniSONE 60 mg Route: PO; al4 09:42 Follow up: Response: No adverse reaction al4 08:42 Drug: Xopenex (levalbuterol) 1.25 mg Route: Inhalation; al4 09:42 Follow up: Response: No adverse reaction al4 10:48 Drug: Aspirin Chewable Tablet 324 mg Route: PO; al4 11:51 Follow up: Response: No adverse reaction al4 11:06 Drug: LevaQUIN (levofloxacin) 750 mg Volume: 150 ml; Route: IVPB; Infused Over: 90 al4 mins; Site: left wrist; 12:36 Follow up: Response: No adverse reaction; IV Status: Completed infusion al4 Outcome: 10:45 Decision to Hospitalize by Provider. rn 20:24 Condition: stable maurice 20:24 Admitted to maurice 22:49 Patient left the ED. mw Signatures: Dispatcher [employer] EDMS Giselle Bhatt RN RN mw Ballard, Brenda, RN RN bb Nieto, Roman, MD MD rn Alexander, Jessica ja2 Ledbetter, Alexis al4 Renetta Tovar RN RN bo Au-StagerMadison RN RN ha Corrections: (The following items were deleted from the chart) 07:10 06:58 Chief complaint: Patient states: he was diagnosed with Covid on Tuesday with bb Covid today he checked his pulse and it went up to 111 so he was concerned :58 Coronavirus screen: Client reports previous positive COVID test result. [facility] 06:58 Ebola Screen: No symptoms or risks identified at this time. [facility] :58 Initial Sepsis Screen: Does the patient meet any 2 criteria? No. Patient's bb initial sepsis screen is negative. Does the patient have a suspected source of infection? No. Patient's initial sepsis screen is negative. :58 Risk Assessment: Do you want to hurt yourself or someone else? Patient reports no bb desire to harm self or others. :58 Onset of symptoms was May 29, 2021 [facility] :58 Method Of Arrival: Ambulatory [facility] 06:58 Acuity: ANNA 4 [facility] 07 07:08 BP 171 / 80; Pulse 58bpm; Resp 16bpm; Spontaneous; Pulse Ox 99% RA; Temp 97.8F bb Oral; 92.99 kg Reported; Height 5 ft. 11 in. Reported; BMI: 28.5; Pain 0/10; 07 07:06 Allergies: No Known Allergies; [facility] 07:06 Immunization history: Adult Immunizations up to date, [facility] 07:06 Social history: Smoking status: Patient denies any tobacco usage or history of. bbb 07:06 Arm band placed on Patient placed in waiting room, Patient notified of wait time [facility] 10: 10:00 BP 140 / 97; Resp 14bpm; al4 al4 10:19 10:00 Reassessment: Patient is alert, oriented x 3, equal unlabored respirations, skin al4 warm/dry/pink. Patient denies pain at this time. Patient states feeling better. al4 13:26 13:25 quality control supervisor on. Pulse ox on. NIBP on. al4 al4 17:33 17:02 Reassessment: No changes from previously documented assessment. Patient and/or al4 family updated on plan of care and expected duration. Pain level reassessed. Patient is alert, oriented x 3, equal unlabored respirations, skin warm/dry/pink. al4
[2021-05-29] MEDS ORDERED: Levofloxacin 750mg IV 750 MG/150 ML BAG IV ONE (10:57)
[2021-05-29 11:38] LABS: SARS-COV-2 RT PCR POSITIVE (NEGATIVE)
[2021-05-29] MEDS ORDERED: MORPHINE 4 MG/ML SYR IV PRN (17:55)
[2021-05-29] MEDS ORDERED: ACETAMINOPHEN 500 MG TAB PO PRN (17:55)
[2021-05-29] MEDS ORDERED: ENOXAPARIN 100 MG/ML SYR SQ SCH (19:00)
[2021-05-29] MEDS: ENOXAPARIN 100 MG/ML SYR SQ SCH (19:00)
[2021-05-29] MEDS: CEFTRIAXONE 1,000 MG in NA CHLORIDE 0.9% 50 ML IVPB SCH (23:03)
[2021-05-29] MEDS: predniSONE 20 MG TAB PO SCH (23:05)
[2021-05-29] MEDS: METOPROLOL TAR 25 MG TAB PO SCH (23:10)
[2021-05-29 23:55] VITALS: BMI 29.9
[2021-05-30 03:51] LABS: Absolute Lymphocytes (CBC) 0.8 K/uL (0.7-4.9); Lymphocytes % 20.2 % (15.3-44.8); MPV 8.2 fL (7.6-11.3); RBC Red Blood Cell Count 5.49 M/uL (4.33-5.43)
[2021-05-30] MEDS ORDERED: CEFTRIAXONE 1000 MG/VIAL ONE ×2 (07:40→20:49)
[2021-05-30] MEDS ORDERED: NA CHLORIDE 0.9% 100 ML ONE (07:41)
[2021-05-30] MEDS: ASPIRIN EC 81 MG TAB PO SCH (09:08)
[2021-05-30] MEDS: predniSONE 20 MG TAB PO SCH ×2 (09:08→21:10)
[2021-05-30] MEDS: CEFTRIAXONE 1,000 MG in NA CHLORIDE 0.9% 50 ML IVPB SCH ×2 (09:09→21:09)
[2021-05-30] MEDS: ENOXAPARIN 100 MG/ML SYR SQ SCH ×2 (09:09→21:10)
[2021-05-30] MEDS: METOPROLOL TAR 25 MG TAB PO SCH ×2 (09:09→21:10)
--- NOTE | 2021-05-30 14:29 | P.PN ---
Subjective Date of Service: 05/30/21 Patient continues to improve. Patient's symptoms are much better. Review of Systems 10-point ROS is otherwise unremarkable Physical Examination - Vital Signs Temperature: 96.8 F Blood Pressure: 144/95 Pulse: 70 Respirations: 20 Pulse Ox (%): 98 - Physical Exam General: Alert, In no apparent distress HEENT: Atraumatic, PERRLA, EOMI Neck: Supple, JVD not distended Respiratory: Clear to auscultation bilaterally, Normal air movement Cardiovascular: Regular rate/rhythm, Normal S1 S2 Gastrointestinal: Normal bowel sounds, No tenderness Musculoskeletal: No tenderness Integumentary: No rashes Neurological: Normal speech, Normal tone, Normal affect Lymphatics: No axilla or inguinal lymphadenopathy - Studies Microbiology Data (last 24 hrs): 05/29/21 08:20 Throat Group A Streptococcus Rapid Screen - Final Medications List Reviewed: Yes Assessment & Plan - Problems (Diagnosis) (1) Pneumonia due to COVID-19 virus Current Visit: Yes Status: Acute (2) Non-STEMI (non-ST elevated myocardial infarction) Current Visit: Yes Status: Acute (3) Hypertension Current Visit: Yes Status: Acute (4) Myocarditis due to COVID-19 virus Current Visit: Yes Status: Acute - Plan Cardiac workup still pending. Patient is not hypoxic. Patient should be okay to go home if cardiac workup comes back negative 1. Echocardiogram pending 2. Stress test in a.m. 3. Tapering dose of oral prednisone 4. Cardiology consultation appreciated 5. Inhaler therapy and cough medication as needed 6. Anti coagulation 7. Most likely related to viral myocarditis 8. Anti-platelet and statin therapy 9. Beta-chhaya therapy Discharge Plan: Home Plan to discharge in: Greater than 2 days - Advance Directives Does patient have a Living Will: No Does patient have a Durable POA for Healthcare: No - Code Status/Comfort Care Code Status: Full Code Critical Care: No Time Spent Managing PTS Care (In Minutes): 35
--- NOTE | 2021-05-30 14:29 | P.HP ---
Certification for Inpatient Patient admitted to: Inpatient With expected LOS: >2 Midnights Patient will require the following post-hospital care: None Practitioner: I am a practitioner with admitting privileges, knowledge of patient current condition, hospital course, and medical plan of care. Services: Services provided to patient in accordance with Admission requirements found in Title 42 Section 412.3 of the Code of Federal Regulations Patient History Date of Service: 05/29/21 Reason for admission: COVID-19 pneumonia/NSTEMI History of Present Illness: Patient is a 61-year-old gentleman who came to the hospital with not feeling well. Patient had some discomfort and was confused. Patient started feeling better but he has some chest tightness while he was in the emergency room. Patient troponins were elevated. Patient also was found have COVID-19 pneumonia. Patient will be admitted for further evaluation. Allergies No Known Allergies Allergy (Verified 02/14/20 19:55) Home Medications: Aspirin [Aspirin EC 81 MG] 81 mg PO DAILY 30 Days #30 tablet. 12/10/20 Carvedilol [Coreg] 25 mg PO DAILY 05/29/21 Furosemide [Lasix] 40 mg PO BID 05/29/21 - Past Medical/Surgical History Diabetic: No -: Systolic congestive heart failure-EF 20% -: Hypertension -: Cardiomegaly -: Hyperlipidemia -: Morbid obesity -: Suspect underlying obstructive sleep apnea -: Former smoker -: Former alcohol use -: CKD 3 -: Heart catheterization 2020x2 -: knee surgery Psychosocial/ Personal History: Patient lives at home with his . - Family History Father Medical History: Heart disease, Other (see notes) Notes: of heart attack Mother Medical History: Diabetes Brother Medical History: Diabetes - Social History Smoking Status: Current every day smoker Alcohol use: No CD- Drugs: No Caffeine use: No Place of Residence: Home Review of Systems 10-point ROS is otherwise unremarkable Physical Examination - Vital Signs Temperature: 96.8 F Blood Pressure: 144/95 Pulse: 70 Respirations: 20 Pulse Ox (%): 98 - Physical Exam General: Alert, In no apparent distress, Oriented x3 HEENT: Atraumatic, PERRLA, Mucous membr. moist/pink, EOMI, Sclerae nonicteric Neck: Supple, 2+ carotid pulse no bruit, No LAD, Without JVD or thyroid abnormality Respiratory: Clear to auscultation bilaterally, Normal air movement Cardiovascular: Regular rate/rhythm, Normal S1 S2, No murmurs Gastrointestinal: Normal bowel sounds, Soft and benign, Non-distended, No tenderness Musculoskeletal: No tenderness Integumentary: No rashes Neurological: Normal gait, Normal speech, Normal strength at 5/5 x4 extr, Normal tone, Sensation intact, Cranial nerves 3-12 intact, Normal affect Lymphatics: No axilla or inguinal lymphadenopathy - Studies Microbiology Data (last 24 hrs): 05/29/21 08:20 Throat Group A Streptococcus Rapid Screen - Final Assessment & Plan - Problems (Diagnosis) (1) Pneumonia due to COVID-19 virus Current Visit: Yes Status: Acute (2) Non-STEMI (non-ST elevated myocardial infarction) Current Visit: Yes Status: Acute (3) Hypertension Current Visit: Yes Status: Acute - Plan 1. Echocardiogram 2. Continue with antibiotics 3. continue with steroids 4. Cardiology consultation 5. Inhaler therapy and cough medication as needed 6. Anti coagulation 7. Repeat CXR 8. Anti-platelet and statin therapy 9. Beta-chhaya therapy Discharge Plan: Home Plan to discharge in: Greater than 2 days - Advance Directives Does patient have a Living Will: No Does patient have a Durable POA for Healthcare: No - Code Status/Comfort Care Code Status Assessed: Yes Code Status: Full Code Critical Care: No Time Spent Managing PTS Care (In Minutes): 35
--- NOTE | 2021-05-30 19:57 | CON ---
Date of Consultation: 05/30/2021 Reason For Consultation: Elevated troponin. History Of Present Illness: A 61-year-old male, history of coronary artery disease status post cardi ac stent in the past, history of hypertension, CHF, who presented with upper respiratory tract sympto ms with cough, minimal shortness of breath, and low-grade fever and had some diarrhea, vomiting, and body aches. Denies having any chest pain. Past Medical History: As outlined above in the HPI. Medications: Refer to reconciliation sheet for detailed list. Allergies: NO KNOWN DRUG ALLERGIES. Family History: No premature coronary artery disease or cancer. Social History: Does not smoke or drink. Does not use drugs. Review of Systems: All systems reviewed and they were negative except for mentioned in HPI. Physical Examination: Vital Signs: Reviewed. Head And Neck: Pupils are equal, reactive to light. Intact eye movements. No JVD. No cervical lym phadenopathy. Neck is supple. Thyroid is not enlarged. Lungs: Rhonchi bilaterally. No accessory muscle use or muscle retraction. Heart: Regular rate and rhythm. No extra sounds. Abdomen: Soft, nontender. Bowel sounds positive. No organomegaly, no masses or hernia, no rebound. Extremities: No clubbing, cyanosis. Intact pulses. Skin: No rashes. Neurologic: Alert, awake, oriented x3. No acute focal deficits appreciated. Investigations: White blood cell count 3.7, hemoglobin 17.6. Sodium 133, BUN 20, creatinine 0.68. Troponin 1.19, then 1.15. Assessment recommendation. 1.Elevated troponin, likely demand ischemia and possible mild myocarditis involvement due to COVID-1 9 infection. Recommend aspirin and anticoagulation with Lovenox for now. Agree with beta-chhaya as well and obtain an echocardiogram on Tuesday. Before discharge, also recommend to do a nuclear stres s test to evaluate for possible ischemia as he is known to have history of coronary artery disease. More than likely this troponin elevation is due to COVID infection. 2.Coronary artery disease with elevated troponin, which as I mentioned above, likely due to COVID in fection but still recommend a nuclear stress test to evaluate the need for a coronary angiogram. Ple ase make sure the patient is on aspirin and anticoagulation for the time being. Thank you for the consult. /CHRISTINE Voice ID: [id number] Report ID: [id number]
[2021-05-30] MEDS ORDERED: NA CHLORIDE 0.9% 50 ML ONE (21:01)
[2021-05-31 06:11] LABS: Absolute Lymphocytes (CBC) 1.1 K/uL (0.7-4.9); Hematocrit 52.5 % (39.6-49.0); Lymphocytes % 26.8 % (15.3-44.8); MPV 8.7 fL (7.6-11.3); RBC Red Blood Cell Count 5.37 M/uL (4.33-5.43)
[2021-05-31 06:56] LABS: Bilirubin Total 0.4 mg/dL (0.2-1.0); Protein, Total 7.5 g/dL (6.4-8.2)
[2021-05-31 06:58] LABS: Potassium 3.8 mmol/L (3.5-5.1)
[2021-05-31 06:59] LABS: Magnesium 2.4 mg/dL (1.8-2.4)
[2021-05-31 07:01] LABS: Troponin I 1.18 ng/mL (0.0-0.045)
[2021-05-31] MEDS ORDERED: CEFTRIAXONE 1000 MG/VIAL ONE (07:17)
[2021-05-31] MEDS ORDERED: NA CHLORIDE 0.9% 50 ML ONE (07:26)
[2021-05-31] MEDS: ENOXAPARIN 100 MG/ML SYR SQ SCH ×2 (08:21→20:37)
[2021-05-31] MEDS: METOPROLOL TAR 25 MG TAB PO SCH ×2 (08:21→20:36)
[2021-05-31] MEDS: predniSONE 20 MG TAB PO SCH ×2 (08:21→20:36)
[2021-05-31] MEDS: ASPIRIN EC 81 MG TAB PO SCH (08:21)
[2021-05-31] MEDS: CEFTRIAXONE 1,000 MG in NA CHLORIDE 0.9% 50 ML IVPB SCH ×2 (08:22→20:37)
--- NOTE | 2021-05-31 18:47 | P.PN ---
Date of Service: 05/31/21 Subjective Patient is doing really well. Clinical symptoms are improving. Review of Systems 10-point ROS is otherwise unremarkable Physical Examination - Vital Signs Reviewed - Physical Exam General: Alert, In no apparent distress Respiratory: Clear to auscultation bilaterally, Normal air movement Cardiovascular: Regular rate/rhythm, Normal S1 S2 Gastrointestinal: Normal bowel sounds, No tenderness Neurological: Normal speech, Normal tone, Normal affect Assessment & Plan - Problems (Diagnosis) (1) Pneumonia due to COVID-19 virus Current Visit: Yes Status: Acute (2) Non-STEMI (non-ST elevated myocardial infarction) Current Visit: Yes Status: Acute (3) Hypertension Current Visit: Yes Status: Acute (4) Myocarditis due to COVID-19 virus Current Visit: Yes Status: Acute - Plan *Cardiac workup still pending. Patient is not hypoxic. Patient should be okay to go home if cardiac workup comes back negative 1. Echocardiogram pending 2. Stress test in a.m. 3. Tapering dose of oral prednisone at DC 4. Cardiology consultation appreciated 5. Inhaler therapy and cough medication as needed 6. Anti coagulation 7. Most likely related to viral myocarditis 8. Continue with anti-platelet and statin therapy 9. Continue with beta-chhaya therapy
[2021-06-01] MEDS: CEFTRIAXONE 1,000 MG in NA CHLORIDE 0.9% 50 ML IVPB SCH (07:54)
[2021-06-01] MEDS: ASPIRIN EC 81 MG TAB PO SCH (07:55)
[2021-06-01] MEDS: ENOXAPARIN 100 MG/ML SYR SQ SCH (07:55)
[2021-06-01] MEDS: predniSONE 20 MG TAB PO SCH (07:56)
[2021-06-01] MEDS: METOPROLOL TAR 25 MG TAB PO SCH (07:56)
[2021-06-01 09:37] VITALS: O2SAT 99
[2021-06-01 12:19] VITALS: BP 133/89; TEMP 97.7
--- NOTE | 2021-06-01 13:20 | P.DS ---
Admission Date: 05/29/21 Discharge Date: 06/01/21 Primary Care Provider: Dr. Plummer; Cardiology-Dr. Godinez Disposition: ROUTINE DISCHARGE Discharge Condition: GOOD Reason for Admission: COVID-19 pneumonia/NSTEMI Consultations: Cardiology-Dr. Rodrigues Procedures: COVID: Positive ECHO: EF 25% Medical Problem List: Chest pain with elevated troponin likely ischemic demand complicated with chronic systolic CHF with ejection fraction 25% Hypertension Covid positive asymptomatic Hyperlipidemia Brief History of Present Illness: 61-year-old -Congolese male presented with shortness of breath and chest tightness. Patient with history of hypertension, systolic CHF. Patient found to have Covid positive without major symptoms. T cardiac enzymes were also elevated. Patient admitted for further evaluation and treatment. Hospital Course: Patient presented with chest pain. Patient with history of CHF, systolic dysfunction with EF of 25%. Patient found to have elevated troponin and positive for Covid. Patient was asymptomatic. Elevated troponin was identified. This was likely related to ischemic demand. Case discussed in detail with cardiology who reviewed prior cardiac work-up results from the office. Patient has nonischemic disease. Elevated troponin likely ischemic demand. Patient with systolic CHF. Patient likely presented with acute on chronic systolic CHF. Patient now stable. At discharge patient will continue with the 1500 cc/day fluid restriction and low-salt diet. Recommend to monitor his weight daily. At discharge patient will continue with aspirin 81 mg daily, Lasix 40 mg 1 pill twice daily, carvedilol 25 mg 1 pill twice daily, and new medication includes lisinopril 5 mg daily. Recommend to follow-up with cardiology in 1 to 2 weeks to follow-up his hospitalization. Patient may benefit with Entresto in the future if he is able to get insurance or approval on this. This can be done with the help of his PCP or cardiology. Recommend follow-up with PCP in 1 week to follow-up his hospitalization and further his care. Patient with hypertension. At discharge patient will continue with carvedilol 25 mg 1 pill twice daily and lisinopril 5 mg daily. Recommend to maintain blood pressure less than 130/80. If blood pressure remains above 140/90 further adjustment in medication may be required. This can be done with the help of his PCP or programming director. Patient with Covid positive test. Patient asymptomatic. Education on Covid provided. Patient will continue with face mask use, handwashing and social distancing. Recommend future vaccination in the future. Patient with hyperlipidemia. LDL 139. Will recommend to start Lipitor 10 mg daily. Recommend to recheck fasting lipid panel and CMP in 4 to 6 weeks to monitor his progress. Further adjustment can be done by his PCP. Vital Signs/Physical Exam: Temp Pulse Resp BP Pulse Ox 97.7 F 72 18 133/89 99 06/01/21 12:00 06/01/21 12:00 06/01/21 12:00 06/01/21 12:00 06/01/21 12:00 General: Alert, In no apparent distress, Oriented x3, Cooperative HEENT: Atraumatic Neck: Supple Respiratory: Clear to auscultation bilaterally, Normal air movement Cardiovascular: Normal pulses, Regular rate/rhythm Gastrointestinal: Normal bowel sounds, No tenderness, No masses, No rebound, No guarding Integumentary: No tenderness/swelling, No erythema, No warmth, No cyanosis Neurological: Normal speech, Normal strength at 5/5 x4 extr, Normal tone, Normal affect Laboratory Data at Discharge: WBC 4.10 K/uL (4.3-10.9) L 05/31/21 05:18 Hgb 17.3 g/dL (13.6-17.9) 05/31/21 05:18 Hct 52.5 % (39.6-49.0) H 05/31/21 05:18 Plt Count 210 K/uL (152-406) 05/31/21 05:18 Sodium 137 mmol/L (136-145) 05/31/21 05:18 Potassium 3.8 mmol/L (3.5-5.1) 05/31/21 05:18 BUN 32 mg/dL (7-18) H 05/31/21 05:18 Creatinine 1.60 mg/dL (0.55-1.3) H 05/31/21 05:18 Glucose 114 mg/dL (74-106) H 05/31/21 05:18 Magnesium 2.4 mg/dL (1.8-2.4) 05/31/21 05:18 Total Bilirubin 0.4 mg/dL (0.2-1.0) 05/31/21 05:18 AST 34 U/L (15-37) 05/31/21 05:18 ALT 46 U/L (12-78) 05/31/21 05:18 Alkaline Phosphatase 107 U/L (45-117) 05/31/21 05:18 Troponin I 1.18 ng/mL (0.0-0.045) H* 05/31/21 05:18 Triglycerides 96 mg/dL (<150) 05/30/21 03:41 Cholesterol 217 mg/dL (<200) H 05/30/21 03:41 HDL Cholesterol 59 mg/dL (40-60) 05/30/21 03:41 Cholesterol/HDL Ratio 3.68 05/30/21 03:41 Home Medications: Aspirin [Aspirin EC 81 MG] 81 mg PO DAILY 30 Days #90 tablet. 06/01/21 Atorvastatin Calcium [Lipitor] 10 mg PO BEDTIME #30 tab 06/01/21 Carvedilol [Coreg] 25 mg PO DAILY #60 06/01/21 Furosemide [Lasix] 40 mg PO BID #60 06/01/21 lisinopriL [Prinivil*] 5 mg PO BEDTIME #30 tab 06/01/21 New Medications: Aspirin [Aspirin EC 81 MG] 81 mg PO DAILY 30 Days #90 tablet. Carvedilol [Coreg] 25 mg PO DAILY #60 Furosemide [Lasix] 40 mg PO BID #60 Atorvastatin Calcium [Lipitor] 10 mg PO BEDTIME #30 tab lisinopriL [Prinivil*] 5 mg PO BEDTIME #30 tab Physician Discharge Instructions: Patient presented with chest pain. Patient with history of CHF, systolic dysfunction with EF of 25%. Patient found to have elevated troponin and positive for Covid. Patient was asymptomatic. Elevated troponin was identified. This was likely related to ischemic demand. Case discussed in detail with cardiology who reviewed prior cardiac work-up results from the office. Patient has nonischemic disease. Elevated troponin likely ischemic demand. Patient with systolic CHF. Patient likely presented with acute on chronic systolic CHF. Patient now stable. At discharge patient will continue with the 1500 cc/day fluid restriction and low-salt diet. Recommend to monitor his weight daily. At discharge patient will continue with aspirin 81 mg daily, Lasix 40 mg 1 pill twice daily, carvedilol 25 mg 1 pill twice daily, and new medication includes lisinopril 5 mg daily. Recommend to follow-up with cardiology in 1 to 2 weeks to follow-up his hospitalization. Patient may benefit with Entresto in the future if he is able to get insurance or approval on this. This can be done with the help of his PCP or cardiology. Recommend follow-up with PCP in 1 week to follow-up his hospitalization and further his care. Patient with hypertension. At discharge patient will continue with carvedilol 25 mg 1 pill twice daily and lisinopril 5 mg daily. Recommend to maintain blood pressure less than 130/80. If blood pressure remains above 140/90 further adjustment in medication may be required. This can be done with the help of his PCP or programming director. Patient with Covid positive test. Patient asymptomatic. Education on Covid provided. Patient will continue with face mask use, handwashing and social distancing. Recommend future vaccination in the future. Patient with hyperlipidemia. LDL 139. Will recommend to start Lipitor 10 mg daily. Recommend to recheck fasting lipid panel and CMP in 4 to 6 weeks to monitor his progress. Further adjustment can be done by his PCP. OK TO DC IV AND DC HOME FOLLOW-UP WITH PRIMARY CARE PROVIDER IN 1-2 WEEKS FOLLOW-UP WITH CARDIOLOGY IN 1-2 WEEKS RETURN TO THE ER IF symptoms worsen CALL or TEXT DR. LOPEZ AT [phone] IF ANY QUESTIONS REGARDING HOSPITAL STAY. PLEASE CALL THE FLOOR AT [phone] IF ANY MEDICATION OR NURSING QUESTIONS. Diet: AHA Activity: Fall precautions Followup: Unknown,U [Primary Care Provider] - Time spent managing pt's care (in minutes): 55
--- NOTE | 2021-06-01 14:05 | ECHO ---
HEIGHT: 5 ft 11 in WEIGHT: 215 lb 0 oz DATE OF STUDY: 06/01/[address]: Puma Curtis MD 2-DIMENSIONAL: YES M.MODE: YES DOPPLER: YES COLOR FLOW: YES TDS: PORTABLE: DEFINITY: BUBBLE STUDY: DIAGNOSIS: NON ST ELEVATION MYOCARDIAL INFARCTION CARDIAC HISTORY: CATHERIZATION: SURGERY: PROSTHETIC VALVE: PACEMAKER: MEASUREMENTS (cm) DIASTOLIC (NORMALS) SYSTOLIC (NORMALS) IVSd 1.3 (0.6-1.2) LA Diam 4.5 (1.9-4.0) LVEF 29% LVIDd 7.5 (3.5-5.7) LVIDs 6.5 (2.0-3.5) %FS 14% LVPWd 1.4 (0.6-1.2) Ao Diam 2.9 (2.0-3.7) 2 DIMENSIONAL ASSESSMENT: RIGHT ATRIUM: NORMAL LEFT ATRIUM: ENLARGED RIGHT VENTRICLE: NORMAL LEFT VENTRICLE: DEPRESSED EJECTION FRACTION TRICUSPID VALVE: NORMAL MITRAL VALVE: MILD TO MODERATE MITRAL REGURGIATION PULMONIC VALVE: NORMAL AORTIC VALVE: NORMAL PERICARDIAL EFFUSION: NONE AORTIC ROOT: NORMAL LEFT VENTRICULAR WALL MOTION: SEVERE GLOBAL HYPOOKINESIS DOPPLER/COLOR FLOW: SEE BELOW COMMENTS: SEVERELY DEPRESSED LEFT VENTRICULAR EJECTION FRACTION AT 25-30%. GLOBAL SEVERE HYPOKINESIS. MODERATE MITRAL REGURGITATION. LEFT ATRIAL ENLARGEMENT. TECHNOLOGIST: INOCENTE GARCIA
[2021-06-01] MEDS ORDERED: lisinopriL 5 MG TAB PO SCH (21:00)
--- NOTE | 2021-06-01 22:30 | PN ---
Date of Progress Note: 06/01/2021 Mr. Yadav is 61, was admitted to Dr. Dong on 05/29/2021 with COVID pneumonia and non-STEMI. The patient has been seen by Dr. Rodrigues. Echocardiogram and Lexiscan are pending for today. He is deny ing any chest pain. His shortness of breath of breath is improved. His vital signs are stable. He remained in sinus rhythm. His chest is clear. He has no edema. We will await the results of the ec ho and then stress test before making further decisions. Continue present regimen. Case was discuss ed with Dr. Dong. GAYATHRI/CHRISTINE Voice ID: [id number] Report ID: [id number]
== END 2021-06-01 14:00 | disposition home or self-care (01) | DRG 280 ==
LOC: ER 04:12 → ERHOLD 18:09 → 4TH 22:00
PROVIDERS: ADMIT Hospitalist; ATTEND Family Medicine
DX: I13.0 Hypertensive heart and chronic kidney disease with heart failure and stage 1 through stage 4 chronic kidney disease, or unspecified chronic kidney disease (principal); U07.1 COVID-19; I21.A1 Myocardial infarction type 2; J12.82 Pneumonia due to coronavirus disease 2019; I50.23 Acute on chronic systolic (congestive) heart failure; N18.30 Chronic kidney disease, stage 3 unspecified; I51.4 Myocarditis, unspecified; I25.10 Atherosclerotic heart disease of native coronary artery without angina pectoris; E78.5 Hyperlipidemia, unspecified; F17.210 Nicotine dependence, cigarettes, uncomplicated; I25.2 Old myocardial infarction; R77.8 Other specified abnormalities of plasma proteins; Z79.82 Long term (current) use of aspirin; Z79.899 Other long term (current) drug therapy; Z95.5 Presence of coronary angioplasty implant and graft
CPT/HCPCS: 0240U; 36415; 71045; 80048; 80053; 80061; 83735; 83880; 84145; 84484; 85025; 87040; 87070; 87081; 93005; 93306; 96365; 99285; J1650; J7512

== ENCOUNTER 2021-09-12 10:42 | Observation (INO) | payer SELFPAY ==
--- OUTSIDE RECORDS SUMMARY | 2021-09-12 10:48 | XMS REPORT | Continuity of Care Document ---
:1960 Author Organization [facility] t Address [address] [place] [address] Care Team Providers Name Role Phone Unavailable Unavailable Unavailable Problems This patient has no known problems. Allergies, Adverse Reactions, Alerts This patient has no known allergies or adverse reactions. Social History Social Habit Start Date Stop Date Quantity Comments Source Sex Assigned At [birth year] [facility] Alesha kes - 00:00:00 00:00:00 [facility] Medications This patient has no known medications. Procedures This patient has no known procedures. Encounters Start End Encounter Admission Attending Care Care Encounter Source Date/Time Date/Time Type Type Clinicians Facility Department ID 2021-05-[address] [facility] Pulmonology [id number] [facility] 12:17:30 [facility] Results This patient has no known results.
[2021-09-12] MEDS ORDERED: NA CHLORIDE 0.9% 1,000 ML ONE (11:22)
--- NOTE | 2021-09-12 11:24 | RAD REPORT ---
EXAM DESCRIPTION: RAD - Chest Single View - 09/12/2021 11:19 am CLINICAL HISTORY: Cough COMPARISON: Chest Single View dated 05/29/2021; Chest Pa And Lat (2 Views) dated 12/28/2020; Chest Sin gle View dated 12/05/2020; Chest Single View dated 03/14/2020 FINDINGS: Lines: None. Lungs: Mild diffuse hazy opacities are present bilaterally. Pleural: No significant pleural effusions or pneumothorax. Cardiac: Cardiomegaly. Bones: No acute fractures. Other: IMPRESSION: Hazy airspace disease bilaterally probably representing edema, pneumonia less likely.
[2021-09-12 11:31] LABS: Absolute Lymphocytes (CBC) 1.5 K/uL (0.7-4.9); Hematocrit 47.5 % (39.6-49.0); Lymphocytes % 34.9 % (15.3-44.8); MPV 8.3 fL (7.6-11.3); RBC Red Blood Cell Count 4.66 M/uL (4.33-5.43)
--- NOTE | 2021-09-12 11:32 | ER ---
Nurse's Notes [facility] Name: Paco Yadav Age: 61 yrs Sex: Male : 1960 Arrival Date: 09/12/2021 Time: 10:43 Bed 26 Private MD: Diagnosis: Essential (primary) hypertension;Unspecified combined systolic (congestive) and diastolic (congestive) heart failure;Cardiomegaly;Abnormal levels of other serum enzymes-troponin;Unspecified kidney failure Presentation: 09/12 10:40 Chief complaint: Patient states: Trouble breathing x4 days, swelling to lower jg9 extremities x1 week. Coronavirus screen: Vaccine status: Patient reports being unvaccinated. Ebola Screen: Patient negative for fever greater than or equal to 101.5 degrees Fahrenheit, and additional compatible Ebola Virus Disease symptoms Patient denies exposure to infectious person. Patient denies travel to an Ebola-affected area in the 21 days before illness onset. 10:40 Method Of Arrival: Wheelchair j9 10:50 Initial Sepsis Screen: Does the patient meet any 2 criteria? RR > 20 per min. Does the jg9 patient have a suspected source of infection? No. Patient's initial sepsis screen is negative. Risk Assessment: Do you want to hurt yourself or someone else? Patient reports no desire to harm self or others. Onset of symptoms is unknown. 10:50 Acuity: ANNA 3 jg9 Triage Assessment: 10:40 General: Appears uncomfortable, Behavior is calm, cooperative. Pain: Denies pain. jg9 Respiratory: Reports shortness of breath on exertion Onset: The symptoms/episode began/occurred gradually, the patient has mild shortness of breath. Historical: - Allergies: 11:02 No Known Allergies; jg9 - Home Meds: 11:02 Aspirin Oral [Active]; atorvastatin Oral [Active]; carvedilol Oral [Active]; Furosemide jg9 Oral [Active]; Hydralazine Oral [Active]; metolazone Oral [Active]; - PMHx: 11:02 CHF; Hypertension; Myocardial infarction; jg9 - PSHx: 11:02 Stented artery; jg9 - Immunization history:: Client reports having NOT received the Covid vaccine. Pneumococcal vaccine is not up to date, Flu vaccine is not up to date. - Social history:: Smoking status: Patient reports the use of cigarette tobacco products, denies chronic smoking, but will smoke occasionally. - Family history:: not pertinent. Screenin:04 Abuse screen: Denies threats or abuse. Denies injuries from another. Nutritional jg9 screening: No deficits noted. Tuberculosis screening: No symptoms or risk factors identified. Fall Risk None identified. Assessment: 11:04 Respiratory: Airway is patent Respiratory effort is even, Breath sounds are diminished jg9 bilaterally. 11:04 Cardiovascular: Rhythm is sinus rhythm. jg9 11:04 Cardiovascular: 2+ non pitting edema to bilateral lower extremities. jg9 13:27 Reassessment: Patient and/or family updated on plan of care and expected duration. Pain jg9 level reassessed. Patient states feeling better. Patient reports improvement in sob when not moving. 14:21 Reassessment: No changes from previously documented assessment. Patient and/or family jg9 updated on plan of care and expected duration. Pain level reassessed. Vital Signs: 10:50 BP 160 / 120; Pulse 54; Resp 24 S; Temp 96.3(A); Pulse Ox 96% on R/A; Weight 111.13 kg; jg9 Height 5 ft. 11 in. (180.34 cm) (R); Pain 0/10; 11:30 BP 169 / 136; Pulse 88; Resp 24 S; Pulse Ox 96% on R/A; jg9 12:00 BP 179 / 138; Pulse 103; Resp 23 S; Pulse Ox 98% on R/A; jg9 12:00 BP 179 / 138; Pulse 98; Resp 24 S; Pulse Ox 96% on R/A; jg9 12:30 BP 170 / 134; Pulse 89; Resp 23 S; Pulse Ox 97% on R/A; jg9 13:00 BP 170 / 111; Pulse 84; Resp 16 S; Pulse Ox 98% on R/A; jg9 13:30 BP 155 / 105; Pulse 90; Resp 22 S; Pulse Ox 96% on R/A; jg9 14:30 BP 171 / 104; Pulse 96; Resp 23 S; Pulse Ox 98% on R/A; jg9 15:00 BP 188 / 117; Pulse 79; Resp 22 S; Pulse Ox 95% on R/A; jg9 15:30 BP 172 / 131; Pulse 80; Resp 17 S; Pulse Ox 97% ; jg9 16:00 BP 187 / 137; Pulse 70; Resp 22 S; Pulse Ox 95% on R/A; jg9 10:50 Body Mass Index 34.17 (111.13 kg, 180.34 cm) jg9 ED Course: 10:43 Patient arrived in ED. am2 10:47 Sesar Masterson MD is Attending Physician. [facility] 11:00 Annie Dimas RN is Primary Nurse. jg9 11:02 Triage completed. jg9 11:04 Arm band placed on right wrist. jg9 11:04 Patient has correct armband on for positive identification. Bed in low position. Call jg9 light in reach. Side rails up X 1. 11:17 Inserted saline lock: 18 gauge in right antecubital area, using aseptic technique. jg9 Blood collected. 11:21 XRAY Chest (1 view) In Process Unspecified. EDMS 11:28 Hakan Dodd MD is Hospitalizing Provider. [facility] 09/13 14:18 IV discontinued, intact, bleeding controlled, No redness/swelling at site. Pressure jh6 dressing applied. Administered Medications: 09/12 11:18 Not Given (Physician Discretion): NS 0.9% 1000 ml IV at 75 ml/hr continuous ballesteros 11:35 Drug: Lasix (furosemide) 60 mg Route: IVP; Site: right antecubital; jg9 12:17 Follow up: Response: No adverse reaction jg9 11:36 Drug: Zofran (Ondansetron) 4 mg Route: IVP; Site: right antecubital; jg9 12:18 Follow up: Response: No adverse reaction jg9 11:38 Drug: Norvasc (amlodipine) 10 mg Route: PO; jg9 12:17 Follow up: Response: No adverse reaction jg9 12:18 Follow up: Response: Blood pressure is unchanged jg9 11:38 Drug: Lisinopril 10 mg Route: PO; jg9 12:17 Follow up: Response: No adverse reaction; Blood pressure is unchanged jg9 11:40 Drug: Nitro-Bid (nitroglycerin) Ointment 2 % 1 inches Route: Transdermal; Site: jg9 anterior chest wall; 12:16 Follow up: Response: No adverse reaction jg9 11:40 Drug: morphine 2 mg Route: IVP; Site: right antecubital; jg9 12:18 Follow up: Response: No adverse reaction jg9 11:51 Not Given (Duplicate Order): Lovenox (enoxaparin) 40 mg Sub-Q once [facility] 11:54 Drug: Lovenox (enoxaparin) 100 mg Route: Sub-Q; Site: right lower abdomen; jg9 12:27 Follow up: Response: No adverse reaction jg9 11:55 Drug: Pepcid (famotidine) 20 mg Route: IVP; Site: right antecubital; jg9 12:00 Follow up: BP 179 / 138; Pulse 103 bpm; Resp 23 bpm Spontaneous; Pulse Ox 98% RA jg9 12:27 Follow up: Response: No adverse reaction jg9 11:58 Drug: Aspirin Chewable Tablet 324 mg Route: PO; jg9 12:27 Follow up: Response: No adverse reaction jg9 12:40 Drug: hydrALAZINE 20 mg Route: IVP; Site: right antecubital; jg9 13:26 Follow up: Response: No adverse reaction; Blood pressure is lowered jg9 12:40 Drug: HydrALAZINE 25 mg Route: PO; jg9 13:26 Follow up: Response: No adverse reaction; Blood pressure is lowered jg9 Output: 13:30 Urine: 1400ml (Voided); Total: 1400ml. jg9 14:19 Urine: 1300ml (Voided); Total: 2700ml. jg9 15:17 Urine: 1000ml (Voided); Total: 3700ml. jg9 Outcome: 11:32 Decision to Hospitalize by Provider. [facility] 09/13 14:17 Discharged to home ambulatory. jh6 Condition: improved Discharge instructions given to patient, Instructed on discharge instructions, follow up and referral plans. Demonstrated understanding of instructions, follow-up care, medications, Prescriptions given X 1. 14:18 Patient left the ED. jh6 Signatures: Dispatcher [employer] EDIL Sesar Masterson MD MD cha Moreno, Amanda am2 Annie Lugo RN RN jh6 Annie Dimas RN RN jg9 Ashlie-Stager, Madison RN ballesteros
--- NOTE | 2021-09-12 11:32 | EDPHYS ---
Physician Documentation [facility] Name: Paco Yadav Age: 61 yrs Sex: Male : 1960 Arrival Date: 09/12/2021 Time: 10:43 Bed 26 Private MD: ED Physician Sesar Masterson HPI: 09/12 11:21 This 61 yrs old Black Male presents to ER via Wheelchair with complaints of Breathing otto Difficulty. 11:21 The patient has shortness of breath at rest, with light activity. Onset: The otto symptoms/episode began/occurred 3 day(s) ago. Duration: The symptoms are continuous, and are steadily getting worse. The patient's shortness of breath is aggravated by exertion, supine position, is alleviated by rest, sitting up, application of supplemental oxygen. Associated signs and symptoms: Pertinent positives: non-productive cough. Severity of symptoms: At their worst the symptoms were moderate in the emergency department the symptoms are unchanged. The patient has experienced similar episodes in the past, multiple times. Historical: - Allergies: 11:02 No Known Allergies; jg9 - Home Meds: 11:02 Aspirin Oral [Active]; atorvastatin Oral [Active]; carvedilol Oral [Active]; Furosemide jg9 Oral [Active]; Hydralazine Oral [Active]; metolazone Oral [Active]; - PMHx: 11:02 CHF; Hypertension; Myocardial infarction; jg9 - PSHx: 11:02 Stented artery; jg9 - Immunization history:: Client reports having NOT received the Covid vaccine. Pneumococcal vaccine is not up to date, Flu vaccine is not up to date. - Social history:: Smoking status: Patient reports the use of cigarette tobacco products, denies chronic smoking, but will smoke occasionally. - Family history:: not pertinent. ROS: 11:21 Constitutional: Negative for fever, chills, and weight loss, Eyes: Negative for injury, otto pain, redness, and discharge, ENT: Negative for injury, pain, and discharge, Neck: Negative for injury, pain, and swelling, Abdomen/GI: Negative for abdominal pain, nausea, vomiting, diarrhea, and constipation, Back: Negative for injury and pain, : Negative for injury, bleeding, discharge, and swelling, Skin: Negative for injury, rash, and discoloration, Neuro: Negative for headache, weakness, numbness, tingling, and seizure, Psych: Negative for depression, anxiety, suicide ideation, homicidal ideation, and hallucinations, Allergy/Immunology: Negative for hives, rash, and allergies, Endocrine: Negative for neck swelling, polydipsia, polyuria, polyphagia, and marked weight changes, Hematologic/Lymphatic: Negative for swollen nodes, abnormal bleeding, and unusual bruising. 11:21 Cardiovascular: Positive for orthopnea, palpitations. 11:21 Respiratory: Positive for dyspnea on exertion, shortness of breath, at rest. 11:21 MS/extremity: Positive for swelling. Exam: 11:21 Constitutional: This is a well developed, well nourished patient who is awake, alert, otto and in no acute distress. Head/Face: Normocephalic, atraumatic. Eyes: Pupils equal round and reactive to light, extra-ocular motions intact. Lids and lashes normal. Conjunctiva and sclera are non-icteric and not injected. Cornea within normal limits. Periorbital areas with no swelling, redness, or edema. ENT: Nares patent. No nasal discharge, no septal abnormalities noted. Tympanic membranes are normal and external auditory canals are clear. Oropharynx with no redness, swelling, or masses, exudates, or evidence of obstruction, uvula midline. Mucous membranes moist. Chest/axilla: Normal chest wall appearance and motion. Nontender with no deformity. No lesions are appreciated. Cardiovascular: Regular rate and rhythm with a normal S1 and S2. No gallops, murmurs, or rubs. Normal PMI, no JVD. No pulse deficits. Abdomen/GI: Soft, non-tender, with normal bowel sounds. No distension or tympany. No guarding or rebound. No evidence of tenderness throughout. Back: No spinal tenderness. No costovertebral tenderness. Full range of motion. Male : Normal genitalia with no discharge or lesions. Skin: Warm, dry with normal turgor. Normal color with no rashes, no lesions, and no evidence of cellulitis. Neuro: Awake and alert, GCS 15, oriented to person, place, time, and situation. Cranial nerves II-XII grossly intact. Motor strength 5/5 in all extremities. Sensory grossly intact. Cerebellar exam normal. Normal gait. Psych: Awake, alert, with orientation to person, place and time. Behavior, mood, and affect are within normal limits. 11:21 Neck: C-spine: appears grossly normal, no acute changes, Thyroid: appears normal, no acute changes, Trachea: is midline with no obvious abnormalities, no acute changes, ROM/movement: is normal, Lymph nodes: no appreciated lymphadenopathy. 11:21 Cardiovascular: Rate: normal, Rhythm: regular, Pulses: Pulses are 4+ in bilateral radial, brachial, femoral, popliteal, posterior tibial and and dorsalis pedis arteries.. Heart sounds: normal, JVD: is noted bilaterally, to 3 cm. 11:21 ECG was reviewed by the Attending Physician. Vital Signs: 10:50 BP 160 / 120; Pulse 54; Resp 24 S; Temp 96.3(A); Pulse Ox 96% on R/A; Weight 111.13 kg; jg9 Height 5 ft. 11 in. (180.34 cm) (R); Pain 0/10; 11:30 BP 169 / 136; Pulse 88; Resp 24 S; Pulse Ox 96% on R/A; jg9 12:00 BP 179 / 138; Pulse 103; Resp 23 S; Pulse Ox 98% on R/A; jg9 12:00 BP 179 / 138; Pulse 98; Resp 24 S; Pulse Ox 96% on R/A; jg9 12:30 BP 170 / 134; Pulse 89; Resp 23 S; Pulse Ox 97% on R/A; jg9 13:00 BP 170 / 111; Pulse 84; Resp 16 S; Pulse Ox 98% on R/A; jg9 13:30 BP 155 / 105; Pulse 90; Resp 22 S; Pulse Ox 96% on R/A; jg9 14:30 BP 171 / 104; Pulse 96; Resp 23 S; Pulse Ox 98% on R/A; jg9 15:00 BP 188 / 117; Pulse 79; Resp 22 S; Pulse Ox 95% on R/A; jg9 15:30 BP 172 / 131; Pulse 80; Resp 17 S; Pulse Ox 97% ; jg9 16:00 BP 187 / 137; Pulse 70; Resp 22 S; Pulse Ox 95% on R/A; jg9 10:50 Body Mass Index 34.17 (111.13 kg, 180.34 cm) 9 MDM: 10:54 Patient medically screened. otto 11:26 Differential diagnosis: Bronchitis CHF exacerbation, Myocardial Infarction pneumonia, otto pulmonary edema, Unstable Angina. Antibiotic administration: Not indicated. The patient's Wells Deep Vein Thrombosis Score was calculated as follows: Heart Rate >100 BPM (1.5 Pts) Total Score: 0-2 Pts- Low Risk. The patient's pulmonary embolism risk score was calculated as follows: Total Score: 0-2 points. This patient was found to be at low risk for a pulmonary embolism by using the Well's assessment criteria. Immunization status: Influenza vaccine: Data reviewed: vital signs, nurses notes, lab test result(s), EKG, radiologic studies, plain films. 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 Test interpretation: by ED physician or midlevel provider: ECG, plain radiologic studies. Counseling: I had a detailed discussion with the patient and/or guardian regarding: the historical points, exam findings, and any diagnostic results supporting the discharge/admit diagnosis, lab results, radiology results, the need for further work-up and treatment in the hospital. 09/12 10:49 Order name: Basic Metabolic Panel; Complete Time: 11:52 otto 09/12 10:49 Order name: CBC with Diff; Complete Time: 11:52 [facility] 09/12 10:49 Order name: LFT's; Complete Time: 11:52 09/12 10:49 Order name: Magnesium; Complete Time: 11:52 otto 09/12 10:49 Order name: NT PRO-BNP; Complete Time: 11:52 [facility] 09/12 10:49 Order name: PT-INR; Complete Time: 11:52 [facility] 09/12 10:49 Order name: Troponin HS; Complete Time: 11:52 [facility] 09/12 10:49 Order name: COVID-19/FLU A+B (Document "Date of Onset" if Symptomatic); Complete Time: otto 15:25 09/12 10:49 Order name: D-Dimer; Complete Time: 11:52 [facility] 09/12 12:54 Order name: Troponin High Sensitivity [facility] 09/12 12:54 Order name: Troponin High Sensitivity [facility] 09/12 12:54 Order name: Troponin High Sensitivity [facility] 09/13 01:58 Order name: CBC with Automated Diff [facility] 09/13 02:10 Order name: Comprehensive Metabolic Panel [facility] 09/12 10:49 Order name: XRAY Chest (1 view); Complete Time: 11:52 [facility] 09/12 10:49 Order name: EKG; Complete Time: 10:49 [facility] 09/13 02:10 Order name: Magnesium [facility] 09/12 10:49 Order name: Cardiac monitoring; Complete Time: 11:16 [facility] 09/12 10:49 Order name: EKG - Nurse/Tech; Complete Time: 11:16 [facility] 09/12 10:49 Order name: IV Saline Lock; Complete Time: 11:16 [facility] 09/12 10:49 Order name: Labs collected and sent; Complete Time: 11:16 [facility] 09/12 10:49 Order name: O2 Per Protocol; Complete Time: 19:39 [facility] 09/12 10:49 Order name: O2 Sat Monitoring; Complete Time: 11:16 [facility] EC:21 Rate is 99 beats/min. QRS [facility] is Normal. AL interval is normal. QRS interval is otto normal. QT interval is normal. No Q waves. T waves are Normal. No ST changes noted. Clinical impression: NSR w/ Non-specific ST/T Changes and No evidence of ischemia. Interpreted by me. Reviewed by me. Administered Medications: 11:18 Not Given (Physician Discretion): NS 0.9% 1000 ml IV at 75 ml/hr continuous ballesteros 11:35 Drug: Lasix (furosemide) 60 mg Route: IVP; Site: right antecubital; jg9 12:17 Follow up: Response: No adverse reaction jg9 11:36 Drug: Zofran (Ondansetron) 4 mg Route: IVP; Site: right antecubital; jg9 12:18 Follow up: Response: No adverse reaction jg9 11:38 Drug: Norvasc (amlodipine) 10 mg Route: PO; jg9 12:17 Follow up: Response: No adverse reaction jg9 12:18 Follow up: Response: Blood pressure is unchanged jg9 11:38 Drug: Lisinopril 10 mg Route: PO; jg9 12:17 Follow up: Response: No adverse reaction; Blood pressure is unchanged jg9 11:40 Drug: Nitro-Bid (nitroglycerin) Ointment 2 % 1 inches Route: Transdermal; Site: jg9 anterior chest wall; 12:16 Follow up: Response: No adverse reaction jg9 11:40 Drug: morphine 2 mg Route: IVP; Site: right antecubital; jg9 12:18 Follow up: Response: No adverse reaction jg9 11:51 Not Given (Duplicate Order): Lovenox (enoxaparin) 40 mg Sub-Q once otto 11:54 Drug: Lovenox (enoxaparin) 100 mg Route: Sub-Q; Site: right lower abdomen; jg9 12:27 Follow up: Response: No adverse reaction jg9 11:55 Drug: Pepcid (famotidine) 20 mg Route: IVP; Site: right antecubital; jg9 12:00 Follow up: BP 179 / 138; Pulse 103 bpm; Resp 23 bpm Spontaneous; Pulse Ox 98% RA jg9 12:27 Follow up: Response: No adverse reaction jg9 11:58 Drug: Aspirin Chewable Tablet 324 mg Route: PO; jg9 12:27 Follow up: Response: No adverse reaction jg9 12:40 Drug: hydrALAZINE 20 mg Route: IVP; Site: right antecubital; jg9 13:26 Follow up: Response: No adverse reaction; Blood pressure is lowered jg9 12:40 Drug: HydrALAZINE 25 mg Route: PO; jg9 13:26 Follow up: Response: No adverse reaction; Blood pressure is lowered jg9 Disposition Summary: 09/12/21 11:32 Hospitalization Ordered Hospitalization Status: Inpatient Admission otto Provider: Hakan Dodd cha Condition: Fair otto Problem: new otto Symptoms: have improved otto Bed/Room Type: Standard otto Location: [facility] ER HOLD(09/12/21 16:50) em1 Room Assignment: ERHOLD-(09/12/21 16:50) em1 Diagnosis - Essential (primary) hypertension otto - Unspecified combined systolic (congestive) and diastolic (congestive) heart failure otto - Cardiomegaly otto - Abnormal levels of other serum enzymes - troponin otto - Unspecified kidney failure otto Forms: - Medication Reconciliation Form otto - SBAR form otto Signatures: Dispatcher [employer] EDSesar Armstrong MD MD cha Martinez, Eric em1 Yossi Landis DO DO ms3 Annie Dimas RN RN jg9 Madison Herzog RN Corrections: (The following items were deleted from the chart) 16:50 11:32 Telemetry/MedSurg (Inpatient) [facility] em1 16:50 11:[address] [facility]
[2021-09-12] MEDS ORDERED: FUROSEMIDE 20 MG/ 2ML VIAL ONE (11:34)
[2021-09-12] MEDS ORDERED: MORPHINE 2 MG/ML SYR ONE (11:34)
[2021-09-12] MEDS ORDERED: AMLODIPINE 10 MG TAB ONE (11:34)
[2021-09-12] MEDS ORDERED: NITROGLYCERIN 1 GM PKT TD ONE (11:34)
[2021-09-12] MEDS ORDERED: lisinopriL 10 MG TAB ONE (11:35)
[2021-09-12] MEDS ORDERED: ONDANSETRON 4 MG/2 ML VIAL ONE (11:35)
[2021-09-12] MEDS ORDERED: FUROSEMIDE 40 MG/4 ML VIAL ONE (11:35)
[2021-09-12 11:45] LABS: Protime INR 1.28
[2021-09-12 11:48] LABS: Albumin 3.2 g/dL (3.4-5.0); Bilirubin Direct 0.7 mg/dL (0-0.2); Bilirubin Total 2.8 mg/dL (0.2-1.0); Magnesium 2.3 mg/dL (1.8-2.4); Protein, Total 6.9 g/dL (6.4-8.2)
[2021-09-12 11:51] LABS: Troponin High Sensitivity 484.8 pg/mL (<58.9)
[2021-09-12] MEDS ORDERED: ENOXAPARIN 40 MG/0.4 ML SQ ONE (11:54)
[2021-09-12] MEDS ORDERED: FAMOTIDINE 20 MG/2 ML VIAL IV ONE (11:55)
[2021-09-12] MEDS ORDERED: ASPIRIN 81 MG CHEWABLE TABLET ONE (12:00)
[2021-09-12] MEDS ORDERED: ENOXAPARIN 60 MG/0.6 ML SQ ONE (12:01)
[2021-09-12] MEDS ORDERED: HYDRALAZINE HCL 25 MG TABLET ONE ×2 (12:34→12:38)
[2021-09-12] MEDS ORDERED: HYDRALAZINE HCL 20 MG/ML VIAL ONE (12:34)
[2021-09-12] MEDS ORDERED: FUROSEMIDE 40 MG/4 ML VIAL IV ONE (12:49)
--- NOTE | 2021-09-12 12:53 | P.HP ---
Certification for Inpatient Patient admitted to: Observation With expected LOS: <2 Midnights Practitioner: I am a practitioner with admitting privileges, knowledge of patient current condition, hospital course, and medical plan of care. Services: Services provided to patient in accordance with Admission requirements found in Title 42 Section 412.3 of the Code of Federal Regulations Patient History Date of Service: 09/12/21 Reason for admission: acute CHF History of Present Illness: 61yo M, PMH: chronic systolic CHF (EF:20-25%), HTN, HLD, CKD3 Presents to the ED with 1 week of progressive shortness of breath and lower extremity edema. ~1 week ago patient ate crawfish two days in a row, then began to develop the symptoms. He has been taking his Lasix as prescribed. Reports he ran out of his Diamox 2 days ago. Symptoms associated with dyspnea on exertion, orthopnea, has not been sleeping well due to shortness of breath. Denies chest pain/chest pressure, no nausea vomiting, no abdominal pain, no diarrhea, no change in bowel/bladder habits. In the ED he was noted to be edematous and with labored breathing on room air, CXR with CHF pattern, elevated BNP. ED physician requests admission for further management. Allergies No Known Allergies Allergy (Verified 02/14/20 19:55) Home Medications: Aspirin [Aspirin EC 81 MG] 81 mg PO DAILY 30 Days #90 tablet. 06/01/21 Atorvastatin Calcium [Lipitor] 10 mg PO BEDTIME #30 tab 06/01/21 Carvedilol [Coreg] 25 mg PO DAILY #60 06/01/21 Furosemide [Lasix] 40 mg PO BID #60 06/01/21 lisinopriL [Prinivil*] 5 mg PO BEDTIME #30 tab 06/01/21 - Past Medical/Surgical History Diabetic: No -: Systolic congestive heart failure-EF 20% -: Hypertension -: Cardiomegaly -: Hyperlipidemia -: Morbid obesity -: Suspect underlying obstructive sleep apnea -: Former smoker -: Former alcohol use -: CKD 3 -: Heart catheterization 2020x2 -: knee surgery Psychosocial/ Personal History: Patient lives at home with his . - Family History Father -: Heart disease, Other (see notes) Notes: of heart attack Mother -: Diabetes Brother -: Diabetes - Social History Alcohol use: No CD- Drugs: No Caffeine use: No Place of Residence: Home Review of Systems 10-point ROS is otherwise unremarkable Physical Examination - Physical Exam General: Alert, In no apparent distress, Oriented x3 HEENT: Mucous membr. moist/pink, Sclerae nonicteric Neck: Supple, No LAD Cardiovascular: Regular rate/rhythm, No murmurs, Edema (2+) Gastrointestinal: Soft and benign, Non-distended, No tenderness Musculoskeletal: No contractures, No tenderness Integumentary: No significant lesion, No tenderness/swelling Neurological: Normal speech, Normal strength at 5/5 x4 extr, Normal affect - Studies Laboratory Data (last 24 hrs) 09/12/21 11:15: PT 14.1 H, INR 1.28 09/12/21 11:15: WBC 4.2 L, Hgb 15.6, Hct 47.5, Plt Count 243 09/12/21 11:15: Sodium 142, Potassium 4.0, BUN 19 H, Creatinine 1.63 H, Glucose 106, Magnesium 2.3, Total Bilirubin 2.8 H, AST 29, ALT 56, Alkaline Phosphatase 114 Assessment and Plan - Advance Directives Does patient have a Living Will: No Does patient have a Durable POA for Healthcare: No Physician Review Additional Text: Problem List: Acute on chronic CHF exacerbation Hypertension CKD 3 CHF exacerbated by high salty food intake, ate crawfish 2 days in a row Patient ran out of his Diamox Has not received any medication in the ED yet, will start IV Lasix Restart home Diamox Currently breathing comfortably on room air at rest Confirm home medications, restart as appropriate VTE: Lovenox Code: Full Dispo: Home, tomorrow Time Spent Managing Pts Care (In Minutes): 70
[2021-09-12 13:42] LABS: SARS-COV-2 RT PCR NEGATIVE (NEGATIVE)
[2021-09-12 16:28] VITALS: BMI 34.2
[2021-09-12] MEDS ORDERED: ONDANSETRON 4 MG/2 ML VIAL IV PRN (16:41)
[2021-09-12] MEDS: FUROSEMIDE 40 MG/4 ML VIAL IV SCH (17:00)
[2021-09-12] MEDS: carvediloL 6.25 MG TAB PO SCH (18:00)
[2021-09-13] MEDS ORDERED: carvediloL 6.25 MG TAB ONE ×3 (00:02→09:01)
[2021-09-13] MEDS: carvediloL 6.25 MG TAB PO SCH ×2 (00:05→09:00)
[2021-09-13] MEDS ORDERED: METOPROLOL TARTRATE 5 MG/5 ML INJ IV STA (00:51)
[2021-09-13] MEDS ORDERED: METOPROLOL TARTRATE 5 MG/5 ML INJ IV ONE (00:58)
[2021-09-13 01:57] LABS: Absolute Lymphocytes (CBC) 1.2 K/uL (0.7-4.9); Hematocrit 45.4 % (39.6-49.0); Lymphocytes % 23.9 % (15.3-44.8); MPV 7.9 fL (7.6-11.3)
[2021-09-13 02:09] LABS: Albumin 2.9 g/dL (3.4-5.0); Bilirubin Total 2.4 mg/dL (0.2-1.0); Magnesium 2.2 mg/dL (1.8-2.4); Potassium 3.5 mmol/L (3.5-5.1); Protein, Total 6.3 g/dL (6.4-8.2)
[2021-09-13] MEDS: lisinopriL 10 MG TAB PO SCH ×2 (03:01→09:00)
[2021-09-13] MEDS ORDERED: lisinopriL 10 MG TAB ONE (03:04)
[2021-09-13] MEDS: FUROSEMIDE 40 MG/4 ML VIAL IV SCH (05:31)
[2021-09-13] MEDS ORDERED: FUROSEMIDE 40 MG/4 ML VIAL ONE (05:34)
[2021-09-13 08:45] VITALS: O2SAT 91
[2021-09-13] MEDS ORDERED: POTASSIUM CL SA 10 MEQ TAB PO ONE ×2 (08:57→09:00)
[2021-09-13] MEDS ORDERED: ASPIRIN 81 MG CHEWABLE TABLET ONE (08:57)
[2021-09-13] MEDS ORDERED: acetaZOLAMIDE 250 MG TAB ONE (08:57)
[2021-09-13] MEDS ORDERED: ENOXAPARIN 40 MG/0.4 ML SQ ONE (08:58)
[2021-09-13] MEDS ORDERED: acetaZOLAMIDE 250 MG TAB PO SCH (09:00)
[2021-09-13] MEDS ORDERED: ASPIRIN EC 81 MG TAB PO SCH (09:00)
[2021-09-13] MEDS ORDERED: ENOXAPARIN 40 MG/0.4 ML SQ SCH (09:00)
[2021-09-13 11:25] VITALS: BP 134/109; TEMP 98.5
[2021-09-13] MEDS ORDERED: PNEUMOCOCCAL VACCINE 0.5 ML IMVAC ONE (12:00)
--- NOTE | 2021-09-13 12:56 | P.DS ---
Admission Date: 09/12/21 Discharge Date: 09/13/21 Disposition: ROUTINE DISCHARGE Discharge Condition: GOOD Reason for Admission: acute CHF Procedures: Problem List: Acute on chronic CHF exacerbation Hypertension CKD 3 Brief History of Present Illness: 61yo M, PMH: chronic systolic CHF (EF:20-25%), HTN, HLD, CKD3 Presents to the ED with 1 week of progressive shortness of breath and lower extremity edema. ~1 week ago patient ate crawfish two days in a row, then began to develop the symptoms. He has been taking his Lasix as prescribed. Reports he ran out of his Diamox 2 days ago. Symptoms associated with dyspnea on exertion, orthopnea, has not been sleeping well due to shortness of breath. Denies chest pain/chest pressure, no nausea vomiting, no abdominal pain, no diarrhea, no change in bowel/bladder habits. In the ED he was noted to be edematous and with labored breathing on room air, CXR with CHF pattern, elevated BNP. ED physician requests admission for further management. Hospital Course: Patient was found to be in acute CHF exacerbation. Improved with IV lasix and restarting home diamox. Blood pressure was noted to be high and improved with diuresis. Discharged home to continue medications. Lasix twice daily x 5 days, then can go back to daily if swelling is much improved. Ok to take a 2nd dose of lasix if you notice swelling / shortness of breath and 2-3+ pound weight gain. Instructed to contact doctor if he needs to do this more than twice. Follow up with PCP within 1 week. To check on swelling and blood pressure. Vital Signs/Physical Exam: Temp Pulse Resp BP Pulse Ox 98.5 F 90 16 134/109 H 96 09/13/21 11:21 09/13/21 11:21 09/13/21 11:21 09/13/21 11:21 09/13/21 08:00 General: Alert, In no apparent distress, Oriented x3 HEENT: EOMI, Sclerae nonicteric Respiratory: Clear to auscultation bilaterally, Normal air movement Cardiovascular: Regular rate/rhythm, Edema (1+ BLE) Gastrointestinal: Soft and benign, Non-distended, No tenderness Musculoskeletal: No erythema, No tenderness Integumentary: No rashes, No significant lesion Neurological: Normal speech, Normal affect Laboratory Data at Discharge: WBC 5.2 K/uL (4.3-10.9) D 09/13/21 01: RBC 4.50 M/uL (4.33-5.43) 09/13/21 01:23 Hgb 15.0 g/dL (13.6-17.9) 09/13/21 01:23 Hct 45.4 % (39.6-49.0) 09/13/21 01:23 MCV 100.8 fL (80-100) H 09/13/21 01:23 MCH 33.3 pg (27.0-35.0) 09/13/21 01: MCHC 33.1 g/dL (32.0-36.0) 09/13/21: RDW 15.0 % (12.1-15.2) 09/13/21 01: Plt Count 225 K/uL (152-406) 09/13/21 01:23 MPV 7.9 fL (7.6-11.3) 09/13/21 01: Neutrophils % 64.3 % (41.7-73.7) 09/13/21 01: Lymphocytes % 23.9 % (15.3-44.8) 09/13/21 01: Monocytes % 7.8 % (3.3-12.3) 09/13/21 01: Eosinophils % 2.8 % (0-4.4) 09/13/21 01: Basophils % 1.2 % (0-1.3) 09/13/21 01: Absolute Neutrophils 3.3 K/uL (1.8-8.0) 09/13/21 01: Absolute Lymphocytes 1.2 K/uL (0.7-4.9) 09/13/21 01: Absolute Monocytes 0.4 K/uL (0.1-1.3) 09/13/21 01: Absolute Eosinophils 0.1 K/uL (0-0.5) 09/13/21 01: Absolute Basophils 0.1 K/uL (0-0.5) 09/13/21 01:23 PT 14.1 SECONDS (9.5-12.5) H 09/12/21 11:15 INR 1.28 09/12/21 11:15 D-Dimer 391 FEUng/mL (<500) 09/12/21 11:15 Sodium 144 mmol/L (136-145) 09/13/21 01:23 Potassium 3.5 mmol/L (3.5-5.1) 09/13/21 01:23 Chloride 112 mmol/L (98-107) H 09/13/21 01:23 Carbon Dioxide 25 mmol/L (21-32) 09/13/21 01:23 BUN 17 mg/dL (7-18) 09/13/21 01:23 Creatinine 1.27 mg/dL (0.55-1.3) 09/13/21 01:23 Estimated GFR 70 mL/min (=/>90) L 09/13/21 01:23 Glucose 108 mg/dL (74-106) H 09/13/21 01:23 Calcium 8.8 mg/dL (8.5-10.1) 09/13/21 01:23 Magnesium 2.2 mg/dL (1.8-2.4) 09/13/21 01:23 Total Bilirubin 2.4 mg/dL (0.2-1.0) H 09/13/21 01:23 Direct Bilirubin 0.7 mg/dL (0-0.2) H 09/12/21 11:15 AST 25 U/L (15-37) 09/13/21 01:23 ALT 45 U/L (12-78) 09/13/21 01:23 Alkaline Phosphatase 105 U/L (45-117) 09/13/21 01:23 Troponin I High Sens 462.4 pg/mL (<58.9) H* 09/13/21 01:23 NT-Pro-B Natriuret Pep 3671 pg/mL (<125) H 09/12/21 11:15 Serum Total Protein 6.3 g/dL (6.4-8.2) L 09/13/21 01:23 Albumin 2.9 g/dL (3.4-5.0) L 09/13/21 01:23 Globulin 3.4 g/dL (2.3-3.5) 09/13/21 01:23 Albumin/Globulin Ratio 0.9 (1.1-1.8) L 09/13/21 01:23 Influenza Type A RNA Negative (NEGATIVE) 09/12/21 10:49 Influenza Type B RNA Negative (NEGATIVE) 09/12/21 10:49 SARS-CoV-2 RNA (RT-PCR) Negative (NEGATIVE) 09/12/21 10:49 Home Medications: Aspirin [Aspirin EC 81 MG] 81 mg PO DAILY 30 Days #90 tablet. 06/01/21 Atorvastatin Calcium [Lipitor*] 10 mg PO BEDTIME #30 tab 06/01/21 Carvedilol [Coreg] 25 mg PO DAILY #60 06/01/21 Furosemide [Lasix] 40 mg PO BID #60 06/01/21 lisinopriL [Prinivil*] 5 mg PO BEDTIME #30 tab 06/01/21 acetaZOLAMIDE [Acetazolamide] 125 mg PO DAILY 30 Days #30 tablet 09/13/21 New Medications: acetaZOLAMIDE [Acetazolamide] 125 mg PO DAILY 30 Days #30 tablet Physician Discharge Instructions: Ok to take a 2nd dose of lasix if you notice swelling / shortness of breath and 2-3+ pound weight gain. Please call your doctor if you need to do this more than twice. Follow up with your PCP within 1 week. To check on swelling and blood pressure. Call [phone] for any questions regarding hospital stay E-script sent to [facility] in [place], [place]. Diet: AHA Activity: Ad francisco Followup: NONE,NONE [Primary Care Provider] - Time spent managing pt's care (in minutes): 45
== END 2021-09-13 14:22 | disposition home or self-care (01) ==
LOC: ER 10:42 → ERHOLD 12:46
PROVIDERS: ADMIT Hospitalist; ATTEND Hospitalist
DX: I13.0 Hypertensive heart and chronic kidney disease with heart failure and stage 1 through stage 4 chronic kidney disease, or unspecified chronic kidney disease (principal); I50.23 Acute on chronic systolic (congestive) heart failure; N18.30 Chronic kidney disease, stage 3 unspecified; E78.5 Hyperlipidemia, unspecified; I25.2 Old myocardial infarction; E66.01 Morbid (severe) obesity due to excess calories; Z68.34 Body mass index [BMI] 34.0-34.9, adult; Z79.82 Long term (current) use of aspirin; Z79.899 Other long term (current) drug therapy; Z20.822 Contact with and (suspected) exposure to COVID-19; Z87.891 Personal history of nicotine dependence; Z82.49 Family history of ischemic heart disease and other diseases of the circulatory system; Z83.3 Family history of diabetes mellitus
CPT/HCPCS: 0240U; 36415; 71045; 80048; 80053; 80076; 83735; 83880; 84484; 85025; 85379; 85610; 93005; 94760; 96372; 96374; 96375; 99284; G0378; J0360; J1650; J1940; J2270; J2405; J7030

== ENCOUNTER 2021-10-21 10:03 | Inpatient (IN) | payer SELFPAY ==
--- OUTSIDE RECORDS SUMMARY | 2021-10-21 10:05 | XMS REPORT | Continuity of Care Document ---
:1960 Author Organization [facility] t Address [address] [place] [address] Care Team Providers Name Role Phone PITO APARICIO Attending Clinician Unavailable MEGHA Admitting Clinician Unavailable Problems This patient has no known problems. Allergies, Adverse Reactions, Alerts This patient has no known allergies or adverse reactions. Social History Social Habit Start Date Stop Date Quantity Comments Source Sex Assigned At [birth year] NURY Mckinley Alesha kes 00:00:00 00:00:00 [facility] Medications This patient has no known medications. Procedures This patient has no known procedures. Encounters Start End Encounter Admission Attending Care Care Encounter Source Date/Time Date/Time Type Type Clinicians Facility Department ID 2021-05-29 Inpatient [facility] Pulmonology [id number] NURY Mckinley 12:17:30 [facility] 2020-01-06 2020-01-08 [id number] 00:31:00 18:00:00 [facility] Results This patient has no known results.
[2021-10-21 11:06] LABS: Absolute Lymphocytes (CBC) 1.4 K/uL (0.7-4.9); Hematocrit 41.3 % (39.6-49.0); Lymphocytes % 28.5 % (15.3-44.8); MPV 8.1 fL (7.6-11.3); RBC Red Blood Cell Count 4.35 M/uL (4.33-5.43)
[2021-10-21 11:07] LABS: Protime INR 1.4
[2021-10-21 11:27] LABS: Albumin 2.8 g/dL (3.4-5.0); Bilirubin Direct 0.7 mg/dL (0-0.2); Bilirubin Total 2.1 mg/dL (0.2-1.0); Magnesium 2.1 mg/dL (1.8-2.4); Potassium 3.9 mmol/L (3.5-5.1); Protein, Total 6.2 g/dL (6.4-8.2)
--- NOTE | 2021-10-21 11:29 | RAD REPORT ---
EXAM DESCRIPTION: RAD - Chest Single View - 10/21/2021 11:22 am CLINICAL HISTORY: SOB COMPARISON: Chest Single View dated 09/12/2021; Chest Single View dated 05/29/2021; Chest Pa And Lat (2 Views) dated 12/28/2020; Chest Single View dated 12/05/2020 FINDINGS: Lines: None. Lungs: Hazy opacities, particularly in the lung bases are again noted. Pleural: A right-sided pleural effusion cannot be excluded. Cardiac: Moderate cardiomegaly. Bones: No acute fractures. Other: IMPRESSION: Findings remain concerning for edema with similar aeration to 09/12/2021.
[2021-10-21 11:37] LABS: Troponin High Sensitivity 498.7 pg/mL (<58.9)
[2021-10-21] MEDS ORDERED: FUROSEMIDE 20 MG/ 2ML VIAL ONE ×2 (12:26→20:10)
--- NOTE | 2021-10-21 13:42 | ER ---
Nurse's Notes [facility] Name: Paco Yadav Age: 61 yrs Sex: Male : 1960 Arrival Date: 10/21/2021 Time: 10:04 Bed 17 Private MD: Diagnosis: Acute on chronic combined systolic (congestive) and diastolic (congestive) heart failure Presentation: 10/21 10:31 Chief complaint: Patient states: SOB that started last week, also has swelling in his iw legs and feet, no chest pain. Coronavirus screen: At this time, the client does not indicate any symptoms associated with coronavirus-19. Ebola Screen: Patient negative for fever greater than or equal to 101.5 degrees Fahrenheit, and additional compatible Ebola Virus Disease symptoms Patient denies exposure to infectious person. Patient denies travel to an Ebola-affected area in the 21 days before illness onset. No symptoms or risks identified at this time. Initial Sepsis Screen: Does the patient meet any 2 criteria? No. Patient's initial sepsis screen is negative. Does the patient have a suspected source of infection? No. Patient's initial sepsis screen is negative. Risk Assessment: Do you want to hurt yourself or someone else? Patient reports no desire to harm self or others. Onset of symptoms was October 14, 2021. 10:31 Method Of Arrival: Wheelchair iw 10:31 Acuity: ANNA 2 iw 10:31 Acuity: ANNA 3 iw Triage Assessment: 10:45 General: Appears in no apparent distress. Behavior is calm, cooperative. Respiratory: ballesteros Reports shortness of breath labored breathing Onset: The symptoms/episode began/occurred gradually, the patient has moderate shortness of breath. Historical: - Allergies: 10:33 No Known Allergies; iw - Home Meds: 10:33 Aspirin Oral [Active]; atorvastatin Oral [Active]; Furosemide Oral [Active]; carvedilol iw Oral [Active]; Hydralazine Oral [Active]; metolazone Oral [Active]; - PMHx: 10:33 CHF; Hypertension; Myocardial infarction; iw - PSHx: 10:33 Stented artery; iw - Immunization history:: Adult Immunizations up to date. - Social history:: Smoking status: Patient reports the use of cigarette tobacco products, denies chronic smoking, but will smoke occasionally. Screenin:44 Abuse screen: Denies threats or abuse. Denies injuries from another. Nutritional ballesteros screening: No deficits noted. Tuberculosis screening: No symptoms or risk factors identified. Fall Risk Gait- Weak (10 pts.). Assessment: 10:43 Pain: Complains of pain in chest. Cardiovascular: Reports chest pain, shortness of ballesteros breath, Rhythm is regular. Cardiovascular: bilateral legs swelling . Respiratory: Airway is patent Respiratory effort is even, unlabored, Breath sounds are diminished bilaterally. 12:34 Reassessment: Patient appears in no apparent distress at this time. Patient and/or ld1 family updated on plan of care and expected duration. Pain level reassessed. Patient is alert, oriented x 3, equal unlabored respirations, skin warm/dry/pink. 14:09 Reassessment: Patient appears in no apparent distress at this time. Patient and/or ld1 family updated on plan of care and expected duration. Pain level reassessed. Patient is alert, oriented x 3, equal unlabored respirations, skin warm/dry/pink. 16:13 Reassessment: Patient appears in no apparent distress at this time. Patient and/or ld1 family updated on plan of care and expected duration. Pain level reassessed. Patient is alert, oriented x 3, equal unlabored respirations, skin warm/dry/pink. 22:25 Reassessment: I recv'd report on this pt and he will be documented on in [facility], not [email or web address]. He is an "ER Hold". Vital Signs: 10:31 BP 141 / 111; Pulse 81; Resp 22 S; Temp 97.7; Pulse Ox 98% on R/A; Weight 108.86 kg; iw Height 5 ft. 11 in. (180.34 cm); 12:34 BP 147 / 117; Pulse 88; Resp 18; Pulse Ox 97% on R/A; ld1 14:09 BP 157 / 129; Pulse 82; Resp 18; Pulse Ox 98% on R/A; ld1 14:47 BP 143 / 106; Pulse 83; Resp 18; Pulse Ox 98% on R/A; ld1 16:13 BP 162 / 95; Pulse 82; Resp 18; Pulse Ox 98% on R/A; ld1 10:31 Body Mass Index 33.47 (108.86 kg, 180.34 cm) iw ED Course: 10:04 Patient arrived in ED. rg4 10:07 Devendra Andrea PA is PHCP. jmm 10:07 Naveed Dodd MD is Attending Physician. jmm 10:33 Triage completed. iw 10:34 Arm band placed on. iw 10:41 Madison Herzog, RN is Primary Nurse. ballesteros 10:44 Patient has correct armband on for positive identification. Bed in low position. ballesteros 10:44 No provider procedures requiring assistance completed. ballesteros 11:23 XRAY Chest (1 view) In Process Unspecified. EDMS 12:34 SARS-COV-2 RT PCR (Document "Date of Onset" if Symptomatic) Sent. ld1 13:42 Anne Avila MD is Hospitalizing Provider. [facility] Administered Medications: 12:34 Drug: Lasix (furosemide) 40 mg Route: IVP; Site: right antecubital; ld1 Medication: 10:44 VIS not applicable for this client. ballesteros Outcome: 13:42 Decision to Hospitalize by Provider. [facility] 10/22 08:19 Patient left the ED. ll1 Signatures: Dispatcher [employer] EDMS Devendra Andrea PA PA [facility] Ankita Yadav, RN Khadijah Earl rg4 Luisa Vidales RN RN ll1 Dayana Avila RN RN ld1 Renetta Tovar RN RN bo Au-Stager, Heather, JUANY RN ballesteros Corrections: (The following items were deleted from the chart) 10/21 10:34 10:31 Pulse 81bpm; Resp 22bpm; Spontaneous; Pulse Ox 98% RA; Temp 97.7F; 108.86 kg; iw Height 5 ft. 11 in.; BMI: 33.4; iw
--- NOTE | 2021-10-21 13:42 | EDPHYS ---
Physician Documentation [facility] Name: Paco Yadav Age: 61 yrs Sex: Male : 1960 Arrival Date: 10/21/2021 Time: 10:04 Bed 17 Private MD: ED Physician Naveed Dodd HPI: 10/21 10:18 This 61 yrs old Black Male presents to ER via Wheelchair with complaints of Chest jmm Discomfort, Leg Swelling, Breathing Difficulty. 10:18 The patient has shortness of breath at rest. Onset: The symptoms/episode began/occurred jmm gradually, 1 week(s) ago. Duration: The symptoms are continuous, and are steadily getting worse. The patient's shortness of breath is aggravated by nothing, is alleviated by nothing. Associated signs and symptoms: Pertinent negatives: chest pain, non-productive cough, dizziness. The patient has experienced similar episodes in the past. Is a 61-year-old male with a history of CHF, hypertension, coronary artery disease the presents emerged department with complaints of bilateral leg swelling, and progressively worsening shortness of breath. Patient takes furosemide 40 mg twice a day. Denies chest pain, cough, fever.. Historical: - Allergies: 10:33 No Known Allergies; iw - Home Meds: 10:33 Aspirin Oral [Active]; atorvastatin Oral [Active]; Furosemide Oral [Active]; carvedilol iw Oral [Active]; Hydralazine Oral [Active]; metolazone Oral [Active]; - PMHx: 10:33 CHF; Hypertension; Myocardial infarction; iw - PSHx: 10:33 Stented artery; iw - Immunization history:: Adult Immunizations up to date. - Social history:: Smoking status: Patient reports the use of cigarette tobacco products, denies chronic smoking, but will smoke occasionally. ROS: 10:18 Constitutional: Negative for fever, chills, and weight loss, Cardiovascular: Negative jmm for chest pain, palpitations, and edema. 10:18 Respiratory: Positive for shortness of breath. 10:18 MS/extremity: Positive for swelling. 10:18 All other systems are negative. Exam: 10:18 Constitutional: This is a well developed, well nourished patient who is awake, alert, jmm and in no acute distress. Head/Face: atraumatic. Eyes: EOMI, no conjunctival erythema appreciated ENT: Moist Mucus Membranes Neck: Trachea midline, Supple Chest/axilla: Normal chest wall appearance and motion. Cardiovascular: Regular rate and rhythm. No edema appreciated Respiratory: Normal respirations, no respiratory distress appreciated Abdomen/GI: Non distended, soft Back: Normal ROM Skin: General appearance color normal 10:18 Musculoskeletal/extremity: Extremities: ROM: intact in all extremities, Bilateral lower extremity swelling, full dorsalis pedis pulse, pitting edema appreciated, compartments are soft, neurovascular intact. 10:18 Skin: Appearance: Color: normal in color. 10:18 Neuro: Orientation: is normal, Mentation: is normal, Memory: is normal. 10:18 Psych: Behavior/mood is pleasant, cooperative. Vital Signs: 10:31 BP 141 / 111; Pulse 81; Resp 22 S; Temp 97.7; Pulse Ox 98% on R/A; Weight 108.86 kg; iw Height 5 ft. 11 in. (180.34 cm); 12:34 BP 147 / 117; Pulse 88; Resp 18; Pulse Ox 97% on R/A; ld1 14:09 BP 157 / 129; Pulse 82; Resp 18; Pulse Ox 98% on R/A; ld1 14:47 BP 143 / 106; Pulse 83; Resp 18; Pulse Ox 98% on R/A; ld1 16:13 BP 162 / 95; Pulse 82; Resp 18; Pulse Ox 98% on R/A; ld1 10:31 Body Mass Index 33.47 (108.86 kg, 180.34 cm) iw MDM: 10:18 Patient medically screened. [facility] 13:41 Data reviewed: vital signs, nurses notes. Counseling: I had a detailed discussion with yg the patient and/or guardian regarding: the historical points, exam findings, and any diagnostic results supporting the discharge/admit diagnosis, lab results, radiology results, the need for further work-up and treatment in the hospital. ED course: I discussed the patient with I discussed the patient with the SAL Sher whom accepted the patient to Dr. Miranda service. . 10/21 10:18 Order name: Basic Metabolic Panel; Complete Time: 11:42 [facility] 10/21 10:18 Order name: CBC with Diff; Complete Time: 11:10 [facility] 10/21 10:18 Order name: LFT's; Complete Time: 11:42 [facility] 10/21 10:18 Order name: Magnesium; Complete Time: 11:42 [facility] 10/21 10:18 Order name: NT PRO-BNP; Complete Time: 11:42 [facility] 10/21 10:18 Order name: PT-INR; Complete Time: 11:10 [facility] 10/21 10:18 Order name: Troponin HS; Complete Time: 11:42 [facility] 10/21 11:14 Order name: SARS-COV-2 RT PCR (Document "Date of Onset" if Symptomatic); Complete Time: [facility] 13:06 10/21 18:06 Order name: Troponin High Sensitivity; Complete Time: 18:22 [facility] 10/21 23:26 Order name: Troponin High Sensitivity [facility] 10/22 03:39 Order name: CBC with Automated Diff [facility] 10/22 03:45 Order name: Basic Metabolic Panel [facility] 10/22 03:45 Order name: Troponin High Sensitivity [facility] 10/22 03:45 Order name: NT PRO-BNP [facility] 10/21 10:18 Order name: XRAY Chest (1 view); Complete Time: 11:42 [facility] 10/21 10:18 Order name: EKG; Complete Time: 10:19 [facility] 10/21 10:18 Order name: Cardiac monitoring; Complete Time: 11:03 [facility] 10/21 10:18 Order name: EKG - Nurse/Tech; Complete Time: 11:21 [facility] 10/21 10:18 Order name: IV Saline Lock; Complete Time: 11:03 [facility] 10/21 10:18 Order name: Labs collected and sent; Complete Time: 11:21 [facility] 10/21 10:18 Order name: O2 Per Protocol; Complete Time: 11:03 [facility] 10/21 10:18 Order name: O2 Sat Monitoring; Complete Time: 11:03 [facility] Administered Medications: 12:34 Drug: Lasix (furosemide) 40 mg Route: IVP; Site: right antecubital; ld1 Disposition: 10/23 07:00 Co-signature as Attending Physician, Naveed Dodd MD. rn Disposition Summary: 10/21/21 13:42 Hospitalization Ordered Hospitalization Status: Observation [facility] Provider: Anne Avila Condition: Stable [facility] Problem: an acute exacerbation [facility] Symptoms: are unchanged [facility] Bed/Room Type: Standard jmm Location: Telemetry/MedSurg (observation)(10/22/21 07:17) Room Assignment: 215(10/22/21 07:17) Diagnosis - Acute on chronic combined systolic (congestive) and diastolic (congestive) heart [facility] failure Forms: - Medication Reconciliation Form jmm - SBAR form [facility] Signatures: Dispatcher [employer] EDDevendra Chavez PA PA jmm Williams, Irene, RN RN Naveed Dodd MD MD rn Garcia, Cindy, RN RN Dayana Avila RN RN ld1 Madison Herzog RN RN ballesteros Corrections: (The following items were deleted from the chart) 10/21 20:05 13:42 Telemetry/MedSurg (observation) [facility] 20:05 13:42 [facility] 10/22 07:17 10/21 20:05 [facility] ER HOLD cg 10/22 07:17 10/21 20:05 ERHOLD- cg
[2021-10-21] MEDS ORDERED: ALBUTEROL 2.5 MG/3 ML NEB SOL NEB PRN (15:08)
[2021-10-21] MEDS ORDERED: ACETAMINOPHEN 500 MG TAB PO PRN (15:08)
[2021-10-21] MEDS ORDERED: ONDANSETRON 4 MG/2 ML VIAL IV PRN (15:08)
[2021-10-21] MEDS ORDERED: IPRATROPIUM BROM 0.5MG/2.5ML NEB PRN (15:08)
[2021-10-21] MEDS ORDERED: HYDROCODONE/APAP 5/325 MG TAB PO PRN (15:19)
[2021-10-21 15:20] VITALS: BMI 33.2
[2021-10-21] MEDS ORDERED: HYDRALAZINE HCL 20 MG/ML VIAL IV PRN (15:21)
--- NOTE | 2021-10-21 15:27 | P.HP ---
Certification for Inpatient Patient admitted to: Inpatient With expected LOS: >2 Midnights Patient will require the following post-hospital care: None Practitioner: I am a practitioner with admitting privileges, knowledge of patient current condition, hospital course, and medical plan of care. Services: Services provided to patient in accordance with Admission requirements found in Title 42 Section 412.3 of the Code of Federal Regulations Patient History Date of Service: 10/21/21 Reason for admission: CHF exacerbation History of Present Illness: Patient is a 61-year-old male with a past medical history significant for CHF, hypertension, hyperlipidemia, [place], CAD who presents with complaint of shortness of breath that has been ongoing for quite some time. Patient reported shortness of breath became worse in the last 1 week. Patient reports generalized edema worse on the lower extremities ongoing for the past 2 weeks Patient reported associated signs and symptoms of orthopnea and cough. Patient denies any other signs and symptoms. Shortness of breath is aggravated with exertion and relieved by nothing. Patient decided to present to the hospital due to worsening symptoms. Allergies No Known Allergies Allergy (Verified 02/14/20 19:55) Home medications list reviewed: Yes Home Medications: Aspirin [Aspirin EC 81 MG] 81 mg PO DAILY 30 Days #90 tablet. 06/01/21 acetaZOLAMIDE [Acetazolamide] 125 mg PO DAILY 30 Days #30 tablet 09/13/21 Atorvastatin Calcium [Lipitor] 80 mg PO BEDTIME 10/21/21 Carvedilol [Coreg] 25 mg PO BIDWM 10/21/21 Furosemide [Lasix] 40 mg PO DAILY 10/21/21 Lisinopril [Zestril] 2.5 mg PO DAILY 10/21/21 - Past Medical/Surgical History Has patient received pneumonia vaccine in the past: No Diabetic: No -: Systolic congestive heart failure-EF 20% -: Hypertension -: Cardiomegaly -: Hyperlipidemia -: Morbid obesity -: Suspect underlying obstructive sleep apnea -: Former smoker -: Former alcohol use -: CKD 3 -: Heart catheterization 2019x2 -: knee surgery Psychosocial/ Personal History: Patient lives at home with his . - Family History Father -: Heart disease, Other (see notes) Notes: of heart attack Mother -: Diabetes Brother -: Diabetes - Social History Smoking Status: Never smoker Alcohol use: No CD- Drugs: No Caffeine use: No Place of Residence: Home Review of Systems General: Unremarkable Eyes: Unremarkable Respiratory: Cough, Shortness of Breath, SOB with Excertion Cardiovascular: Orthopnea Gastrointestinal: Unremarkable Genitourinary: Unremarkable Musculoskeletal: Pedal edema, Other (Generalized swelling ) Integumentary: Unremarkable Neurological: Unremarkable Lymphatics: Unremarkable Physical Examination - Physical Exam General: Alert, Oriented x3, Cooperative, Mild distress HEENT: PERRLA Neck: Supple, 2+ carotid pulse no bruit, JVD not distended Respiratory: Diminished Cardiovascular: Normal pulses, Regular rate/rhythm, Edema Capillary refill: <2 Seconds Gastrointestinal: Normal bowel sounds, Soft and benign Musculoskeletal: No clubbing, No swelling, No erythema, Swelling Integumentary: No rashes, No breakdown, No significant lesion, No erythema, No warmth Neurological: Normal speech, Normal reflexes 2+, Normal affect Lymphatics: No axilla or inguinal lymphadenopathy - Studies Laboratory Data (last 24 hrs) 10/21/21 10:50: PT 15.5 H, INR 1.40 10/21/21 10:50: WBC 4.8, Hgb 13.5 L, Hct 41.3, Plt Count 212 10/21/21 10:50: Sodium 145, Potassium 3.9, BUN 23 H, Creatinine 1.73 H, Glucose 112 H, Magnesium 2.1, Total Bilirubin 2.1 H, AST 23, ALT 29, Alkaline Phosphatase 120 H Assessment and Plan - Plan --Acute on chronic systolic CHF exacerbation. Patient placed on diuresis with Lasix. Cardiology consulted. Daily weight and strict I/O. Will await further recommendation from inventory specialist. --Elevated troponin. Patient has a history of elevated troponin. Will trend troponin levels. Telemetry to monitor for any significant arrhythmia. End Polisher on board. Will await further recommendation from inventory specialist. --Hypertension. Poorly controlled. Continue home medications and labetalol as needed. --Hyperlipidemia. Continue statin. --History of CAD with stents\[place]. Continue aspirin and statin. --Obesity. Likely secondary to execss calories intake. Patient counseled on weight reduction, diet and exercise therapy --DVT prophylaxis with heparin subQ Discharge Plan: Home Plan to discharge in: Greater than 2 days - Advance Directives Does patient have a Living Will: No Does patient have a Durable POA for Healthcare: No - Code Status/Comfort Care Code Status Assessed: Yes Code Status: Full Code Physician Review: Patient Assessed, Agree with Above Assessment and Plan Critical Care: No
[2021-10-21] MEDS: HEPARIN 5000 UNIT/ML 1 ML VIAL SQ SCH (17:00)
[2021-10-21] MEDS: FUROSEMIDE 40 MG/4 ML VIAL IV SCH (17:00)
[2021-10-21] MEDS ORDERED: HEPARIN 5000 UNIT/ML 1 ML VIAL ONE (20:10)
[2021-10-21] MEDS ORDERED: ATORVASTATIN 20 MG TAB ONE (20:11)
[2021-10-21] MEDS: ATORVASTATIN 80 MG TAB PO SCH (20:15)
[2021-10-21] MEDS ORDERED: ATORVASTATIN 10 MG TAB PO SCH (21:00)
[2021-10-22] MEDS: HEPARIN 5000 UNIT/ML 1 ML VIAL SQ SCH ×4 (01:00→17:41)
[2021-10-22 03:38] LABS: Absolute Lymphocytes (CBC) 1.4 K/uL (0.7-4.9); Hematocrit 39.8 % (39.6-49.0); Lymphocytes % 26.9 % (15.3-44.8); MPV 8.4 fL (7.6-11.3); RBC Red Blood Cell Count 4.12 M/uL (4.33-5.43)
[2021-10-22 03:43] LABS: Potassium 3.4 mmol/L (3.5-5.1)
[2021-10-22 03:45] LABS: Troponin High Sensitivity 446.6 pg/mL (<58.9)
[2021-10-22] MEDS ORDERED: POTASSIUM CL SA 10 MEQ TAB PO ONE ×2 (06:13→16:00)
[2021-10-22] MEDS ORDERED: HEPARIN 5000 UNIT/ML 1 ML VIAL ONE (07:23)
[2021-10-22] MEDS ORDERED: FUROSEMIDE 40 MG/4 ML VIAL ONE (07:24)
[2021-10-22] MEDS ORDERED: ASPIRIN 81 MG CHEWABLE TABLET ONE (07:24)
--- NOTE | 2021-10-22 07:55 | EKG ---
Test Date: 2021-10-21 Test Time: 11:07:12 Pass Worker: INES MEASUREMENT RESULTS: Intervals: Rate: 84 CO: 182 QRSD: 112 QT: 418 QTc: 493 [place]: P: 63 CO: 182 QRS: -45 T: 116 INTERPRETIVE STATEMENTS: Normal sinus rhythm Possible Left atrial enlargement Left axis deviation Left ventricular hypertrophy with repolarization abnormality Cannot rule out Septal infarct, age undetermined Lateral infarct, age undetermined Inferior infarct, age undetermined Abnormal ECG Compared to ECG 09/12/2021 10:51:47 Early repolarization now present Ventricular premature complex(es) no longer present Myocardial infarct finding still present Electronically Signed On 10-22-21 07:52:23 CDT by Indio Godinez
[2021-10-22] MEDS: ASPIRIN EC 81 MG TAB PO SCH (09:00)
[2021-10-22] MEDS: FUROSEMIDE 40 MG/4 ML VIAL IV SCH ×2 (09:44→16:33)
--- NOTE | 2021-10-22 15:55 | P.PN ---
Subjective Date of Service: 10/22/21 Chief Complaint: CHF exacerbation Subjective: Improving Physical Examination - Vital Signs Temperature: 97.1 F Blood Pressure: 158/95 Pulse: 68 Respirations: 18 Pulse Ox (%): 100 Assessment And Plan Physician Review: Patient Assessed, Agree with Above Assessment and Plan Physician Review Additional Text: Pysical Exam General: Alert, Oriented x3, Cooperative, Mild distress HEENT: PERRLA Neck: Supple, 2+ carotid pulse no bruit, JVD not distended Respiratory: Diminished Cardiovascular: Normal pulses, Regular rate/rhythm, Edema Capillary refill: <2 Seconds Gastrointestinal: Normal bowel sounds, Soft and benign Musculoskeletal: No clubbing, No swelling, No erythema, Swelling Integumentary: No rashes, No breakdown, No significant lesion, No erythema, No warmth Neurological: Normal speech, Normal reflexes 2+, Normal affect Lymphatics: No axilla or inguinal lymphadenopathy - Studies Laboratory Data (last 24 hrs) 10/21/21 10:50: PT 15.5 H, INR 1.40 10/21/21 10:50: WBC 4.8, Hgb 13.5 L, Hct 41.3, Plt Count 212 10/21/21 10:50: Sodium 145, Potassium 3.9, BUN 23 H, Creatinine 1.73 H, Glucose 112 H, Magnesium 2.1, Total Bilirubin 2.1 H, AST 23, ALT 29, Alkaline Phosphatase 120 H Assessment and Plan Acute on chronic systolic CHF with exacerbationcardiology consult appreciated Per cardiology, patient with EF of 29% See significant fluid overload, continue IV Lasix, making urine well Marginal elevation in --Acute on chronic systolic CHF exacerbationmaking urine well, continue Lasix every 12 Continue fluid restriction less than 1.5 L/day -Appreciate cardiology evaluation todayseen by Dr. Godinez -Reported EF of 29% on last echo -Persistent elevation in troponin by marginal improvement now, asymptomatic -Slowly improving elevated blood pressure, add losartan per cardiology recommendation -We will need to monitor renal function over the next several weeks Creatinine stable at 1.61.7, continue to follow. --Hyperlipidemia. Continue statin. --History of CAD with stents\[place]. Continue aspirin and statin. --Obesity. Likely secondary to execss calories intake. Patient counseled on weight reduction, diet and exercise therapy --DVT prophylaxis with heparin subQ Discharge Plan: Home Plan to discharge in: Greater than 2 days - Advance Directives Does patient have a Living Will: No Does patient have a Durable POA for Healthcare: No Time Spent Managing PTS Care (In Minutes): 35
[2021-10-22] MEDS: carvediloL 25 MG TAB PO SCH (16:33)
[2021-10-22] MEDS: LOSARTAN POTASSIUM 50 MG TABLET PO SCH (16:34)
--- NOTE | 2021-10-22 18:34 | RAD REPORT ---
EXAM DESCRIPTION: CT - Thorax Wo Con - 10/22/2021 6:16 pm CLINICAL HISTORY: hemoptysis COMPARISON: 2020 TECHNIQUE: Computed axial tomography of the chest was obtained. Contrast was not requested. All CT scans are performed using dose optimization technique as appropriate and may include automated exposure control or mA/KV adjustment according to patient size. FINDINGS: The evaluation of mediastinum, zach and vessels is limited secondary to lack of IV contras t administration. Mild bilateral lower lobe opacities. Heart is markedly enlarged. Coronary arterial calcifications Mild mediastinal lymphadenopathy probably reactive in nature Small bilateral pleural effusions IMPRESSION: Small bilateral pleural effusions Marked cardiomegaly Mild bilateral lower lobe opacities may represent pneumonia or pulmonary edema
[2021-10-22] MEDS: ATORVASTATIN 80 MG TAB PO SCH (20:41)
[2021-10-23] MEDS: HEPARIN 5000 UNIT/ML 1 ML VIAL SQ SCH (06:00)
[2021-10-23 06:29] LABS: Albumin 2.7 g/dL (3.4-5.0); Potassium 3.7 mmol/L (3.5-5.1); Protein, Total 5.7 g/dL (6.4-8.2)
[2021-10-23] MEDS: ASPIRIN EC 81 MG TAB PO SCH (08:29)
[2021-10-23] MEDS: FUROSEMIDE 40 MG/4 ML VIAL IV SCH (08:29)
[2021-10-23] MEDS: LOSARTAN POTASSIUM 50 MG TABLET PO SCH (08:29)
[2021-10-23] MEDS: carvediloL 25 MG TAB PO SCH (08:29)
[2021-10-23] MEDS ORDERED: POTASSIUM CL SA 10 MEQ TAB PO ONE (09:00)
[2021-10-23 13:27] VITALS: O2SAT 98
[2021-10-23 13:59] VITALS: BP 127/94; TEMP 96.8
--- NOTE | 2021-10-23 14:52 | P.DS ---
Admission Date: 10/21/21 Discharge Date: 10/23/21 Disposition: ROUTINE DISCHARGE Discharge Condition: FAIR Reason for Admission: CHF exacerbation Brief History of Present Illness: History of Present Illness: Patient is a 61-year-old male with a past medical history significant for CHF, hypertension, hyperlipidemia, [place], CAD who presents with complaint of shortness of breath that has been ongoing for quite some time. Patient reported shortness of breath became worse in the last 1 week. Patient reports generalized edema worse on the lower extremities ongoing for the past 2 weeks Patient reported associated signs and symptoms of orthopnea and cough. Patient denies any other signs and symptoms. Shortness of breath is aggravated with exertion and relieved by nothing. Patient decided to present to the hospital due to worsening symptoms. Allergies No Known Allergies Allergy (Verified 02/14/20 19:55) Home medications list reviewed: Yes Home Medications: Aspirin [Aspirin EC 81 MG] 81 mg PO DAILY 30 Days #90 tablet. 06/01/21 acetaZOLAMIDE [Acetazolamide] 125 mg PO DAILY 30 Days #30 tablet 09/13/21 Atorvastatin Calcium [Lipitor] 80 mg PO BEDTIME 10/21/21 Carvedilol [Coreg] 25 mg PO BIDWM 10/21/21 Furosemide [Lasix] 40 mg PO DAILY 10/21/21 Lisinopril [Zestril] 2.5 mg PO DAILY 10/21/21 Hospital Course: Hospital course Patient with history of chronic systolic CHF with reported EF of 29% on last echo admitted for worsening fluid retention and shortness of breath. On admission he was in hypoxic respiratory failure requiring up to 4 L of nasal cannula O2. He was started on IV diuretics with Lasix. He was diuresing well with improvement of his volume status and he was able to be weaned off O2. He was noted with mild troponin elevation. He is creatinine was mildly elevated at 1.6 but improved to 1.5 at the time of discharge. He was evaluated by cardiology. Temple to be due to his chronic troponinemia. He was continued on his blood pressure medication and his lisinopril was switched to losartan. He will follow-up with cardiology in 1 week. Decision on Entresto was entertained but given patient lack of insurance/cost patient was continued on losartan. Physical Exam General: Alert, Oriented x3, Cooperative on RA HEENT: PERRLA Neck: Supple, 2+ carotid pulse no bruit, JVD not distended Respiratory: Diminished Cardiovascular: Normal pulses, Regular rate/rhythm, Edema Capillary refill: <2 Seconds Gastrointestinal: Normal bowel sounds, Soft and benign Musculoskeletal: No clubbing, improving to 1+ leg swelling Integumentary: No rashes, No breakdown, No significant lesion, No erythema, No warmth Neurological: Normal speech, Normal reflexes 2+, Normal affect Lymphatics: No axilla or inguinal lymphadenopathy --DVT prophylaxis with heparin subQ Discharge Plan: Home Plan to discharge in: Greater than 2 days Vital Signs/Physical Exam: Temp Pulse Resp BP Pulse Ox 96.8 F 77 22 H 127/94 H 97 10/23/21 12:00 10/23/21 12:00 10/23/21 12:00 10/23/21 12:00 10/23/21 12:00 Laboratory Data at Discharge: WBC 5.2 K/uL (4.3-10.9) 10/22/21 02:44 Hgb 12.7 g/dL (13.6-17.9) L 10/22/21 02:44 Hct 39.8 % (39.6-49.0) 10/22/21 02:44 Plt Count 197 K/uL (152-406) 10/22/21 02:44 PT 15.5 SECONDS (9.5-12.5) H 10/21/21 10:50 INR 1.40 10/21/21 10:50 Sodium 143 mmol/L (136-145) 10/23/21 05:55 Potassium 3.7 mmol/L (3.5-5.1) 10/23/21 05:55 BUN 18 mg/dL (7-18) 10/23/21 05:55 Creatinine 1.49 mg/dL (0.55-1.3) H 10/23/21 05:55 Glucose 97 mg/dL (74-106) 10/23/21 05:55 Magnesium 2.1 mg/dL (1.8-2.4) 10/21/21 10:50 Total Bilirubin 2.0 mg/dL (0.2-1.0) H 10/23/21 05:55 AST 17 U/L (15-37) 10/23/21 05:55 ALT 23 U/L (12-78) 10/23/21 05:55 Alkaline Phosphatase 98 U/L (45-117) 10/23/21 05:55 Home Medications: Aspirin [Aspirin EC 81 MG] 81 mg PO DAILY 30 Days #90 tablet. 06/01/21 acetaZOLAMIDE [Acetazolamide] 125 mg PO DAILY 30 Days #30 tablet 09/13/21 Atorvastatin Calcium [Lipitor] 80 mg PO BEDTIME 10/21/21 Carvedilol [Coreg] 25 mg PO BIDWM 10/21/21 Furosemide [Lasix] 40 mg PO BID #60 10/23/21 Losartan Potassium [Cozaar*] 25 mg PO DAILY #30 tablet 10/23/21 New Medications: Losartan Potassium [Cozaar*] 25 mg PO DAILY #30 tablet Furosemide [Lasix] 40 mg PO BID #60 Physician Discharge Instructions: Fluid restriction to less than 1.5 Liters per day Diet: Low sodium Activity: Ad francisco Followup: NONE,NONE [Primary Care Provider] - Time spent managing pt's care (in minutes): 35
--- NOTE | 2021-10-25 14:59 | CON ---
Date of Consultation: 10/22/2021 Reason For Consultation: Congestive heart failure. History Of Present Illness: Mr. Yadav is 61. Known to have a history of CAD, status post PCI, hy pertension, congestive heart failure. Echocardiogram in May of this year showed an ejection frac tion of 29%. The patient came in with PND, orthopnea, pedal edema, and shortness of breath. Denied any chest pain, nausea, vomiting, diaphoresis. Denied any palpitation or syncope. Denied any fever or chills. Chest x-ray shows failure. Past Medical History: Includes chronic systolic congestive heart failure, coronary artery disease, s tatus post stent, hypertension, dyslipidemia, and COPD. Allergies: NONE. Review of Systems: Negative. Social History: Negative. Family History: Noncontributory. Medications: At home include Lasix, hydralazine, carvedilol, aspirin, Lipitor, metolazone . Physical Examination: Vital Signs: His blood pressure is 148/107. He was in no acute distress. Vital signs were otherwis e stable. He was in sinus rhythm, afebrile. HEENT: Negative. Neck: Supple with no bruit, lymphadenopathy, JVD, or thyromegaly. Chest: Revealed rales both bases. Cardiac: Revealed a regular rhythm and rate with S3 gallops. Abdomen: Benign. Extremities: Revealed 2+ edema to the knees. Neurologic: He was nonfocal. Skin: Dry and intact. Pulses were present distally bilaterally. Diagnostic Data: EKG was nonspecific. Creatinine is 1.73. Troponin was 446. His BNP is 1590. Impression And Plan: 1.Acute on chronic systolic congestive heart failure. 2.Coronary artery disease, status post percutaneous coronary intervention. 3.Hypertension. 4.Dyslipidemia. 5.Chronic obstructive pulmonary disease. The patient presently is on inhalers, aspirin, Lipitor, Co reg, Lasix, and hydralazine as well as heparin. I agree with his present regimen. We will continue to diurese him. We need to watch his kidney function, weight, and I's and O's. I do not see the nee d of repeating another echocardiogram now, he just had one in May. I think it would be reasonabl e to diurese him, send him home, set him up for an outpatient Lexiscan in the near future. I believe the elevated troponin and BNP are secondary to demand ischemia from congestive heart failure or dyllan l insufficiency. GAYATHRI/MODL Voice ID: [id number] Report ID: [id number]
== END 2021-10-23 16:35 | disposition home or self-care (01) | DRG 291 ==
LOC: ER 10:03 → ERHOLD 14:57 → 2ND 10-22 07:53
PROVIDERS: ADMIT Internal Medicine; ATTEND Internal Medicine
DX: I11.0 Hypertensive heart disease with heart failure (principal); I50.23 Acute on chronic systolic (congestive) heart failure; J18.9 Pneumonia, unspecified organism; R04.2 Hemoptysis; J44.0 Chronic obstructive pulmonary disease with (acute) lower respiratory infection; E78.5 Hyperlipidemia, unspecified; I25.10 Atherosclerotic heart disease of native coronary artery without angina pectoris; Z79.82 Long term (current) use of aspirin; I25.2 Old myocardial infarction; E66.9 Obesity, unspecified; Z68.33 Body mass index [BMI] 33.0-33.9, adult; Z20.822 Contact with and (suspected) exposure to COVID-19
CPT/HCPCS: 36415; 71045; 71250; 80048; 80053; 80076; 83735; 83880; 84132; 84484; 85025; 85610; 93005; 96374; 99284; J1644; J1940; U0003

== ENCOUNTER 2022-11-07 06:21 | Inpatient (IN) | payer SELFPAY ==
--- OUTSIDE RECORDS SUMMARY | 2022-11-07 06:25 | XMS REPORT | Continuity of Care Document ---
:1960 Author Organization [facility] t Address [address] [place] [address]. [address] [place] [address] Care Team Providers Name Role Phone [facility] Primary Care Physician Uziel HARRINGTON, Shanika Mercer Attending Clinician Prosper Rico MD Attending Clinician [phone] Doctor Unassigned, [place] Attending Clinician Unavailable Marilee Kline MD Attending Clinician Julia Richmond LVN Attending Clinician Mima Pabon RN Attending Clinician Unavailable Gilda Hackett MD Attending Clinician [phone] [place] Attending Clinician Unavailable Charbel Mack MD Attending Clinician Cedric Byers MD Attending Clinician Milton Chaparro MD Attending Clinician NEREIDA APARICIO Attending Clinician Unavailable MARILEE KLINE Admitting Clinician Unavailable Marilee Kline MD Admitting Clinician CHARIS CLEVELAND Admitting Clinician Unavailable Problems Condition Condition Condition Status Onset Resolution Last Treating Co mments Source Name Details Category Date Date Treatment Clinician Date Obesity Obesity Disease Active Univers (BMI (BMI 7-06 ity of 30-39.9) 30-39.9) 00:00: [place] 00 Medical Branch Acute on Acute on Disease Active Unive rs chronic chronic 7-05 ity of heart heart 00:00: [place] failure failure 00 Medical with with Branch reduced reduced ejection ejection fraction fraction and and diastolic diastolic dysfunctio dysfunctio n n Allergies, Adverse Reactions, Alerts This patient has no known allergies or adverse reactions. Social History Social Habit Start Date Stop Date Quantity Comments Source History of Current smoker University of tobacco use [place] [facility] History SDKY University o f Alcohol Std [place] [facility] Drinks Branch History [facility] o f Alcohol Comment [place] [facility] ical Branch Exposure to 2021-12-15 2021-12-25 Not sure University of SARS-CoV-2 00:00:00 14:44:00 [place] [facility] (event) Branch History SDOH 2021-12-18 2021-12-18 1 University o f Alcohol Frequency 00:00:00 00:00:00 [place] M edical Branch History SDOH 2021-12-18 2021-12-18 1 University o f Alcohol Binge 00:00:00 00:00:00 [place] Medic al Branch History SDOH 2021-12-18 2021-12-18 5 University o f Physical Activity 00:00:00 00:00:00 [place] M edical DPW Branch History SDOH 2021-12-18 2021-12-18 5 University o f Physical Activity 00:00:00 00:00:00 [place] M edical MPS Branch History SDOH 2021-12-18 2021-12-18 1 University o f Stress 00:00:00 00:00:00 [place] [facility] History SDOH 2021-12-18 2021-12-18 5 University o f Financial 00:00:00 00:00:00 [place] [facility] History SDOH Food 2021-12-18 2021-12-18 1 Univers ity of Worry 00:00:00 00:00:00 [place] [facility] History SDOH Food 2021-12-18 2021-12-18 1 Univers ity of Scarcity 00:00:00 00:00:00 [place] [facility] History SDOH 2021-12-18 2021-12-18 2 University o f Transport Med 00:00:00 00:00:00 [place] Medic al Branch History SDOH 2021-12-18 2021-12-18 2 University o f Transport Non-Med 00:00:00 00:00:00 [facility] edical Branch Tobacco use and 2021-12-18 2021-12-18 Former smokeless Uni versity of exposure 00:00:00 00:00:00 tobacco user [facility] Sex Ass[birth year] At [birth year] Universit y of 00:00:00 00:00:00 [facility] Smoking Status Start Date Stop Date Source Ex-smoker 2021-12-18 00:00:00 2021-12-18 00:00:00 [facility] Medications Ordered Filled Start Stop Current Ordering Indication Dosage Frequency Signature Comments Components Source Medication Medication Date Date Medication? Clinician (SIG) Name Name lisinopriL Yes [id number] 20mg Take 1 U nivers 20 mg 8-10 tablet by ity of tablet 00:00: mouth in [place] 00 the Medical morning. Branch amLODIPine Yes [id number] 5mg Take 2 U nivers 2.5 mg 8-10 tablets by ity of tablet 00:00: mouth in [place] 00 the Medical morning. Branch lisinopriL Yes 10mg Take 10 mg U nivers 10 mg 7-27 by mouth ity of tablet 14:44: in the [place] 59 morning. Medical Branch atorvastati Yes [id number] 40mg Take 1 Univers n 40 mg 7-22 tablet by ity of tablet 00:00: mouth at [place] [address] bedtime. Medical Branch furosemide Yes [id number] 80mg Take 1 Univers 80 mg 7-22 tablet by ity of tablet 00:00: mouth [place] 00 every Medical morning Branch and evening. lisinopriL Yes [id number] 5mg Take 1 Univers 5 mg tablet 7-22 tablet by ity of 00:00: mouth in [place] 00 the Medical morning. Branch metFORMIN Yes [id number] 500mg Take 1 Univers 500 mg 7-22 tablet by ity of tablet 00:00: mouth in [place] 00 the Medical morning. Branch spironolact Yes [id number] 25mg Take 1 Univers one 25 mg 7-22 tablet by ity o f tablet 00:00: mouth in [place] 00 the Medical morning. Branch atorvastati 2021-0 Yes [id number] 40mg Take 1 Univers n 40 mg 7-22 tablet by ity of tablet 00:00: mouth at [place] 00 bedtime. Medical Branch furosemide 2021-0 Yes [id number] 80mg Take 1 Univers 80 mg 7-22 tablet by ity of tablet 00:00: mouth [place] 00 every Medical morning Branch and evening. lisinopriL 2021-0 Yes [id number] 5mg Take 1 Univers 5 mg tablet 7-22 tablet by ity of 00:00: mouth in [place] 00 the Medical morning. Branch metFORMIN 2021-0 Yes [id number] 500mg Take 1 Univers 500 mg 7-22 tablet by ity of tablet 00:00: mouth in [place] 00 the Medical morning. Branch spironolact 2021-0 Yes [id number] 25mg Take 1 Univers one 25 mg 7-22 tablet by ity o f tablet 00:00: mouth in [place] 00 the Medical morning. Branch atorvastati 2021-0 Yes [id number] 40mg Take 1 Univers n 40 mg 7-22 tablet by ity of tablet 00:00: mouth at [place] [address] bedtime. Medical Branch furosemide 2021-0 Yes [id number] 80mg Take 1 Univers 80 mg 7-22 tablet by ity of tablet 00:00: mouth [place] 00 every Medical morning Branch and evening. metFORMIN 2021-0 Yes [id number] 500mg Take 1 Univers 500 mg 7-22 tablet by ity of tablet 00:00: mouth in [place] 00 the Medical morning. Branch spironolact 2021-0 Yes [id number] 25mg Take 1 Univers one 25 mg 7-22 tablet by ity o f tablet 00:00: mouth in [place] 00 the Medical morning. Branch atorvastati 2021-0 Yes [id number] 40mg Take 1 Univers n 40 mg 7-22 tablet by ity of tablet 00:00: mouth at [place] [address] bedtime. Medical Branch furosemide 2021-0 Yes [id number] 80mg Take 1 Univers 80 mg 7-22 tablet by ity of tablet 00:00: mouth [place] 00 every Medical morning Branch and evening. metFORMIN 2021-0 Yes [id number] 500mg Take 1 Univers 500 mg 7-22 tablet by ity of tablet 00:00: mouth in [place] 00 the Medical morning. Branch spironolact 2021-0 Yes [id number] 25mg Take 1 Univers one 25 mg 7- tablet by ity o f tablet 00:00: mouth in [place] 00 the Medical morning. Branch lisinopriL 2021-0 2021- No [id number] 5mg Take 1 Univers 5 mg tablet 12-07 tablet by it y of 00:00: 05:59 mouth in [place] 00 :00 the Medical morning Branch for 120 days. spironolact 2021-0 2- No [id number] 25mg Take 1 Univers one 25 mg 12-07 tablet by ity of tablet 00:00: 05:59 mouth in [place] 00 :00 the Medical morning Branch for 120 days. lisinopriL 2021-0 2021- No [id number] 5mg Take 1 Univers 5 mg tablet 12-07 tablet by it y of 00:00: 05:59 mouth in [place] 00 :00 the Medical morning Branch for 120 days. spironolact 2021-0 2021- No [id number] 25mg Take 1 Univers one 25 mg 12-07 tablet by ity of tablet 00:00: 05:59 mouth in [place] 00 :00 the [facility] morning Branch for 120 days. lisinopriL 2021-0 2021- No [id number] 5mg Take 1 Univers 5 mg tablet 12-07 tablet by it y of 00:00: 05:59 mouth in [place] 00 :00 the [facility] morning Branch for 120 days. spironolact 2021-0 2021- No [id number] 25mg Take 1 Univers one 25 mg 12-07 tablet by ity of tablet 00:00: 05:59 mouth in [place] 00 :00 the [facility] morning [place] for 120 days. lisinopriL 2-0 2- No [id number] 5mg Take 1 Univers 5 mg tablet 12-07 tablet by it y of 00:00: 05:59 mouth in [place] 00 :00 the [facility] morning Branch for 120 days. spironolact 2021-0 2- No [id number] 25mg Take 1 Univers one 25 mg -04-07 tablet by ity of tablet 00:00: 05:59 mouth in [place] 00 :00 the Medical morning Branch for 120 days. lisinopriL 2022-0 2022- No [id number] 5mg Take 1 Univers 5 mg tablet 12-07 tablet by it y of 00:00: 05:59 mouth in [place] 00 : [facility] for 120 days. spironolact 2021- No [id number] 25mg Take 1 Univers one 25 mg 12-07 tablet by ity of tablet 00:00: 05:59 mouth in [place] 00 :00 [facility] for 120 days. aspirin 81 Yes 81mg Take 81 mg U nivers mg chewable 7-10 by mouth ity of tablet 17:12: daily. [place] [facility] aspirin 81 0 Yes 81mg Take 81 mg U nivers mg chewable 7-10 by mouth ity of tablet 17:12: daily. [address] aspirin 81 0 Yes 81mg Take 81 mg U nivers mg chewable 7-10 by mouth ity of tablet 17:12: daily. [address] aspirin 81 Yes 81mg Take 81 mg U nivers mg chewable 7-10 by mouth ity of tablet 17:12: daily. [address] aspirin 81 0 Yes 81mg Take 81 mg U nivers mg chewable 7-10 by mouth ity of tablet 17:12: daily. [address] aspirin 81 2021-0 Yes 81mg Take 81 mg U nivers mg chewable 7-10 by mouth ity of tablet 17:12: daily. [address] aspirin 81 0 Yes 81mg Take 81 mg U nivers mg chewable 7-10 by mouth ity of tablet 17:12: daily. [address] aspirin 81 0 Yes 81mg Take 81 mg U nivers mg chewable 7-10 by mouth ity of tablet 17:12: daily. [address] aspirin 81 2021-0 Yes 81mg Take 81 mg U nivers mg chewable 7-10 by mouth ity of tablet 17:12: daily. [address] acetaminoph Yes 650mg Take 2 Uni vers en 325 mg 7-10 tablets by ity of tablet 00:00: mouth [place] [address] every 6 Medical (six) Branch hours as needed for Pain (scale 1-3). acetaminoph 2022-0 Yes 650mg Take 2 Uni vers en 325 mg 7-10 tablets by ity of tablet 00:00: mouth [place] 00 every 6 Medical (six) Branch hours as needed for Pain (scale 1-3). acetaminoph 2022-0 Yes 650mg Take 2 Uni vers en 325 mg 7-10 tablets by ity of tablet 00:00: mouth [place] 00 every 6 Medical (six) Branch hours as needed for Pain (scale 1-3). acetaminoph 2022-0 Yes 650mg Take 2 Uni vers en 325 mg 7-10 tablets by ity of tablet 00:00: mouth [place] 00 every 6 Medical (six) Branch hours as needed for Pain (scale 1-3). acetaminoph 2022-0 Yes 650mg Take 2 Uni vers en 325 mg 7-10 tablets by ity of tablet 00:00: mouth [place] 00 every 6 Medical (six) Branch hours as needed for Pain (scale 1-3). acetaminoph 2022-0 Yes 650mg Take 2 Uni vers en 325 mg 7-10 tablets by ity of tablet 00:00: mouth [place] 00 every 6 Medical (six) Branch hours as needed for Pain (scale 1-3). acetaminoph 2022-0 Yes 650mg Take 2 Uni vers en 325 mg 7-10 tablets by ity of tablet 00:00: mouth [place] 00 every 6 Medical (six) Branch hours as needed for Pain (scale 1-3). acetaminoph 2022-0 Yes 650mg Take 2 Uni vers en 325 mg 7-10 tablets by ity of tablet 00:00: mouth [place] 00 every 6 Medical (six) Branch hours as needed for Pain (scale 1-3). acetaminoph 2022-0 Yes 650mg Take 2 Uni vers en 325 mg 7-10 tablets by ity of tablet 00:00: mouth [place] 00 every 6 Medical (six) Branch hours as needed for Pain (scale 1-3). atorvastati 2-0 2021- No [id number] 40mg Take 1 Univers n 40 mg 7-10 11-08 tablet by ity of tablet 00:00: 05:59 mouth at [place] 00 :00 bedtime Medical for 120 Branch days. furosemide 2-0 2021- No [id number] 80mg Take 1 Univers 80 mg 7-10 11-08 tablet by ity of tablet 00:00: 05:59 mouth [place] 00 :00 every Medical morning Branch and evening for 120 days. atorvastati 2021- No [id number] 40mg Take 1 Univers n 40 mg 7-10 11-08 tablet by ity of tablet 00:00: 05:59 mouth at [place] 00 :00 bedtime Medical for 120 Branch days. furosemide 2021- No [id number] 80mg Take 1 Univers 80 mg 7-10 11-08 tablet by ity of tablet 00:00: 05:59 mouth [place] 00 :00 every Medical morning Branch and evening for 120 days. atorvastati 2021- No [id number] 40mg Take 1 Univers n 40 mg 7-10 11-08 tablet by ity of tablet 00:00: 05:59 mouth at [place] 00 :00 bedtime Medical for 120 Branch days. furosemide 2021- No [id number] 80mg Take 1 Univers 80 mg 7-10 11-08 tablet by ity of tablet 00:00: 05:59 mouth [place] 00 :00 every Medical morning Branch and evening for 120 days. atorvastati 2021- No [id number] 40mg Take 1 Univers n 40 mg 7-10 11-08 tablet by ity of tablet 00:00: 05:59 mouth at [place] 00 :00 bedtime Medical for 120 Branch days. furosemide 2021- No [id number] 80mg Take 1 Univers 80 mg 7-10 11-08 tablet by ity of tablet 00:00: 05:59 mouth [place] 00 :00 every Medical morning Branch and evening for 120 days. atorvastati 2021- No [id number] 40mg Take 1 Univers n 40 mg 7-10 11-08 tablet by ity of tablet 00:00: 05:59 mouth at [place] 00 :00 bedtime Medical for 120 Branch days. furosemide 2021- No [id number] 80mg Take 1 Univers 80 mg 7-10 11-08 tablet by ity of tablet 00:00: 05:59 mouth [place] 00 :00 every Medical morning Branch and evening for 120 days. metFORMIN 2021- No [id number] 500mg Take 1 Univers 500 mg 7-10 10-09 tablet by ity of tablet 00:00: 04:59 mouth in [place] 00 :00 the [facility] for 90 days. metFORMIN 2021- No [id number] 500mg Take 1 Univers 500 mg 7-10 10-09 tablet by ity of tablet 00:00: 04:59 mouth in [place] 00 :00 the [facility] for 90 days. metFORMIN 2021- No [id number] 500mg Take 1 Univers 500 mg 7-10 10-09 tablet by ity of tablet 00:00: 04:59 mouth in [place] 00 :00 the [facility] for 90 days. metFORMIN 2021- No [id number] 500mg Take 1 Univers 500 mg 7-10 10-09 tablet by ity of tablet 00:00: 04:59 mouth in [place] 00 :00 the [facility] for 90 days. metFORMIN 2021- No [id number] 500mg Take 1 Univers 500 mg 7-10 10-09 tablet by ity of tablet 00:00: 04:59 mouth in [place] 00 :00 the [facility] for 90 days. Procedures Procedure Date / Time Performed Performing Clinician Mary Grace [facility]CEPCION'S CONSENT 2021-12-18 14:52:54 Doctor Unassigned, No U [facility] FOR FREE TREATMENT Name Medical [facility] h FORM Encounters Start End Encounter Admission Attending Care Care Encounter Source Date/Time Date/Time Type Type Clinicians Facility Department ID 2022-03-03 2022-03-03 Patient Shanika Triplett 1.2.840.114 [id number] Univers 00:00:00 00:00:00 Outreach E THEO 350.1.13.10 i [place] [id number] [facility] 403 Branch 2022-01-01 2022-01-01 Telephone [facility] 1.2.840.11 [id number] Univers 00:00:00 00:00:00 Macey Lopez 350.1.13.10 ity of [place] [phone] [facility] 414 Branch 2021-12-21 2021-12-21 Telephone [facility] 1.2.840.11 [id number] Univers 00:00:00 00:00:00 [place], Y HEALTH 350.1.13.10 ity of [place] CL[place] 4[place] [id number] [facility] 414 Branch 2021-12-18 2021-12-18 Orders Doctor DELL 1.2.840.114 [id number] Univers 00:00:00 00:00:00 Only Unassigned, PRABHA 350.1.13.10 ity of [place] [facility] 4.2.7.2.686 [place] [id number] [facility] 009 Branch 2021-12-18 2021-12-18 [facility] 1.2.840.114 [id number] Univers 00:00:00 00:00:00 Marilee Choudhury HEALTH 350.1.13.10 ity of [place] [id number] [facility] [address] [place] 2021-12-14 2021-12-14 Patient Shanika Triplett 1.2.840.114 [id number] Univers 00:00:00 00:00:00 Outreach E VENEGAS 350.1.13.10 i ty [place] [id number] [facility] 403 Branch 2021-12-12 2021-12-12 Telephone [facility] 1.2.840.114 [id number] Univers 00:00:00 00:00:00 Marilee Choudhury HEALTH 350.1.13.10 ity of [place] [id number] [facility] 414 Branch 2021-12-11 2021-12-11 Transition JOSE [place] 1.2.840.114 [id number] Univers 00:00:00 00:00:00 of Care Julia VENEGAS 350.1.13.10 [place]y [place] [phone] [facility] 403 Branch 2021-12-08 2021-12-08 Transition JOSE Pabon 1.2.840.114 [id number] Univers 00:00:00 00:00:00 of Care Mima Pérez VENEGAS 350.1.13.10 it [place] [id number] [facility] 403 Branch 2021-12-07 2021-12-07 Case TORY Hacktet 1.2.840.114 [id number] Univers 00:00:00 00:00:00 Management Gilda PRABHA 350.1.13.10 ity of [facility] 4.2.7.2.686 [place] [phone] [facility] 089 Branch 2021-12-01 2021-12-06 Inpatient X [facility] [id number] Univers 13:39:00 17:10:00 [facility] 2021-12-01 2021-12-06 [facility] Charbel Mack 1.2.840. 114 [id number] Univers 13:39:00 17:10:00 Encounter Cedric Byers 350.1.13.10 ity of [facility] 4.2.7.2.686 [facility] C [id number] [place] [address] Branch 2021-12-04 2021-12-04 Surgery Milton Chaparro 1.2.840.114 [id number] Univers 11:15:00 13:15:00 N PRABHA 350.1.13.10 it y of [facility] 4.2.7.2.686 [place] [phone] [facility] 840 Branch 2021-12-02 2021-12-02 Telephone [facility] 1.2.840.114 [id number] Univers 00:00:00 00:00:00 [facility] 350.1.13.10 i ty of [place] [id number] [facility] MEDICAL 414 Branch OFFICE BUILDING 2020-01-06 2020-01-08 Inpatient E ALESSANDRA [facility] CAR [id number] [facility] 00:31:00 18:00:00 NEREIDA Results This patient has no known results.
[2022-11-07 06:55] LABS: Absolute Lymphocytes (CBC) 1.2 K/uL (0.7-4.9); Hematocrit 37.5 % (39.6-49.0); Lymphocytes % 22.2 % (15.3-44.8); RBC Red Blood Cell Count 4.21 M/uL (4.33-5.43)
[2022-11-07 07:21] LABS: Albumin 2.5 g/dL (3.4-5.0); Bilirubin Total 5.6 mg/dL (0.2-1.0); Potassium 4.6 mEq/L (3.5-5.1); Protein, Total 7.1 g/dL (6.4-8.2)
[2022-11-07 07:23] LABS: Troponin High Sensitivity 321.8 pg/mL (<58.9)
[2022-11-07] MEDS ORDERED: FUROSEMIDE 100 MG/10 ML VIAL IV ONE (07:39)
[2022-11-07] MEDS ORDERED: NITROGLYCERIN 1 GM PKT TD ONE (07:40)
--- NOTE | 2022-11-07 08:42 | ER ---
Nurse's Notes [facility] Name: Paco Yadav Age: 62 yrs Sex: Male : 1960 Arrival Date: 11/07/2022 Time: 06:21 Bed 6 Private MD: Diagnosis: Unspecified combined systolic (congestive) and diastolic (congestive) heart failure;Acute pulmonary edema;Anasarca Presentation: 11/07 06:31 Chief complaint: Patient states: pt has been out of prescription for 2 weeks. noticed rv swelling of scrotum for about a week now. tenderness when pressure is applied. denies discharge. normal urination. Coronavirus screen: Vaccine status: Patient reports being unvaccinated. Ebola Screen: Patient negative for fever greater than or equal to 101.5 degrees Fahrenheit, and additional compatible Ebola Virus Disease symptoms Patient denies exposure to infectious person. Patient denies travel to an Ebola-affected area in the 21 days before illness onset. Initial Sepsis Screen: Does the patient meet any 2 criteria? No. Patient's initial sepsis screen is negative. Does the patient have a suspected source of infection? No. Patient's initial sepsis screen is negative. Risk Assessment: Do you want to hurt yourself or someone else? Patient reports no desire to harm self or others. Onset of symptoms was October 28, 2022. 06:31 Method Of Arrival: Ambulatory rv 06:31 Acuity: ANNA 3 rv Triage Assessment: 06:33 General: Appears uncomfortable, Behavior is calm, cooperative. Pain: Denies pain. EENT: rv No signs and/or symptoms were reported regarding the EENT system. Neuro: Level of Consciousness is awake, alert, obeys commands, Oriented to person, place, time, situation. Cardiovascular: Capillary refill < 3 seconds. Respiratory: Airway is patent Respiratory pattern is regular. GI: Abdomen is round non-distended. : Reports swelling of the scrotum. Derm: No signs and/or symptoms reported regarding the dermatologic system. Musculoskeletal: Swelling present in right leg and left leg. Historical: - Home Meds: :33 Aspirin Oral [Active]; atorvastatin Oral [Active]; carvedilol Oral [Active]; Furosemide rv Oral [Active]; Hydralazine Oral [Active]; metolazone Oral [Active]; - PMHx: 06:33 CHF; Hypertension; Myocardial infarction; rv - PSHx: 06:33 Stented artery; rv - Immunization history:: Adult Immunizations not up to date. - Social history:: Smoking status: unknown. Screenin:37 [facility] ED Fall Risk Assessment (Adult) History of falling in the last 3 months, rv including since admission No falls in past 3 months (0 pts) Confusion or Disorientation No (0 pts) Intoxicated or Sedated No (0 pts) Impaired Gait No (0 pts) Mobility Assist Device Used No (0 pt) Altered Elimination No (0 pt) Score/Fall Risk Level 0 - 2 = Low Risk Oriented to surroundings, Maintained a safe environment, Educated pt \\T\\ family on fall prevention, incl call for assistance when getting out of bed, Assessed \\T\\ reinforced patient's understanding of fall precautions, Provided non-skid footwear, Hourly rounding (assess needs \\T\\ fall precautionary measures) done, Used ambulatory aids as needed (educated on \\T\\ assisted with), Used gait belt as appropriate. Abuse screen: Denies threats or abuse. Denies injuries from another. Nutritional screening: No deficits noted. Tuberculosis screening: No symptoms or risk factors identified. Assessment: 07:05 Reassessment: Patient appears in no apparent distress at this time. No changes from vg1 previously documented assessment. Patient and/or family updated on plan of care and expected duration. Pain level reassessed. Patient is alert, oriented x 3, equal unlabored respirations, skin warm/dry/pink. 08:30 Reassessment: Patient appears in no apparent distress at this time. Patient and/or vg1 family updated on plan of care and expected duration. Pain level reassessed. Patient is alert, oriented x 3, equal unlabored respirations, skin warm/dry/pink. Pt stated "i feel like im breathing better". 09:17 Reassessment: Pt resting with eyes closed. vg1 10:07 Reassessment: Patient appears in no apparent distress at this time. Patient and/or vg1 family updated on plan of care and expected duration. Pain level reassessed. Patient is alert, oriented x 3, equal unlabored respirations, skin warm/dry/pink. Vital Signs: 06:31 BP 179 / 126; Pulse 53; Resp 21; Temp 97.7; Pulse Ox 100% on R/A; Weight 124.28 kg; rv Height 5 ft. 11 in. ; 07:04 BP 156 / 120; Pulse 103; Resp 28; Pulse Ox 98% on R/A; vg1 07:15 BP 165 / 112; Pulse 100; Resp 27; Pulse Ox 97% on R/A; vg1 07:30 BP 168 / 116; Pulse 103; Resp 30; Pulse Ox 98% on R/A; vg1 08:00 BP 160 / 105; Pulse 103; Resp 25; Pulse Ox 97% on R/A; vg1 08:32 BP 153 / 110; Pulse 102; Resp 26; Pulse Ox 98% on R/A; vg1 09:16 BP 167 / 110; Pulse 97; Resp 26; Pulse Ox 98% on R/A; vg1 10:15 BP 162 / 107; Pulse 104; Resp 28; Pulse Ox 98% on R/A; vg1 10:58 BP 154 / 114; Pulse 103; Resp 26; Pulse Ox 99% ; vg1 06:31 Body Mass Index 38.21 (124.28 kg, 180.34 cm) rv ED Course: 06:24 Patient arrived in ED. bp1 06:25 Noble Mejia RN is Primary Nurse. rv 06:31 Evans Newsome MD is Attending Physician. bs3 06:33 Triage completed. rv 06:36 Arm band placed on right wrist. rv 06:37 Patient has correct armband on for positive identification. Bed in low position. Call rv light in reach. Side rails up X 1. Adult w/ patient. Client placed on continuous cardiac and pulse oximetry monitoring. NIBP monitoring applied. personnel monitor on. 06:48 Inserted saline lock: 20 gauge in right antecubital area, using aseptic technique. rv Blood collected. 06:49 No provider procedures requiring assistance completed. rv 06:49 Troponin HS Sent. rv 06:49 NT PRO-BNP Sent. rv 06:49 CBC with Diff Sent. rv 06:49 CMP Sent. rv 07:00 Cristina Shannon, RN is Primary Nurse. vg1 07:05 Attending Physician role handed off by Evans Newsome MD rn 07:05 Naveed Dodd MD is Attending Physician. rn 07:25 Notified ED physician of a critical lab result(s). Troponin 321.8. aa5 07:53 XRAY Chest (1 view) In Process Unspecified. EDMS 08:38 Puma Curtis MD is Hospitalizing Provider. rn 11:17 Patient admitted, IV remains in place. vg1 Administered Medications: 07:36 Drug: Nitroglycerin Transdermal Ointment 2 % 1 inches Route: Transdermal; Site: vg1 anterior chest wall; 08:43 Follow up: Response: No adverse reaction; Marked relief of symptoms vg1 07:37 Drug: Furosemide IVP 80 mg Route: IVP; Site: right antecubital; vg1 08:42 Follow up: Response: No adverse reaction; Marked relief of symptoms vg1 08:38 Drug: hydrALAZINE IVP 5 mg Route: IVP; Site: right antecubital; vg1 11:18 Follow up: Response: No adverse reaction; No change in condition vg1 Medication: 06:37 VIS not applicable for this client. rv Output: 08:03 Urine: 150ml (Voided); Total: 150ml. vg1 08:43 Urine: 650ml (Voided); Total: 800ml. vg1 09:16 Urine: 625ml (Voided); Total: 1425ml. vg1 10:07 Urine: 700ml (Voided); Total: 2125ml. vg1 10:58 Urine: 700ml (Voided); Total: 2825ml. vg1 Outcome: 08:42 Decision to Hospitalize by Provider. rn 11:16 Admitted to Tele accompanied by tech, room 208, with chart, Report called to Shannon HARRINGTON vg1 11:16 Condition: good 11:16 Instructed on the need for admit. 12:07 Patient left the ED. vg1 Signatures: Dispatcher [employer] EDMS Naveed Dodd MD MD rn Calderon, Audri, RN RN aa5 Noble Mejia RN RN Cristina Sky RN RN vg1 Kristine Berkowitz Brandon, MD MD bs3
--- NOTE | 2022-11-07 08:42 | EDPHYS ---
Physician Documentation [facility] Name: Paco Yadav Age: 62 yrs Sex: Male : 1960 Arrival Date: 11/07/2022 Time: 06:21 Bed 6 Private MD: ED Physician Naveed Dodd HPI: 11/07 06:40 This 62 yrs old Black Male presents to ER via Ambulatory with complaints of Testicular bs3 Swelling, Testicular Pain. 06:40 62-year-old male history of CAD status post PCI, CHF history of EF of less than 30%, bs3 hypertension has not seen a doctor in over a year presents with 3 weeks of dyspnea on exertion and progressive swelling swelling is mostly in his legs but it is now rising up to his scrotum and therefore he got concerned and came in his dyspnea is worse with exertion better with rest. Historical: - Home Meds: 06:33 Aspirin Oral [Active]; atorvastatin Oral [Active]; carvedilol Oral [Active]; Furosemide rv Oral [Active]; Hydralazine Oral [Active]; metolazone Oral [Active]; - PMHx: 06:33 CHF; Hypertension; Myocardial infarction; rv - PSHx: 06:33 Stented artery; rv - Immunization history:: Adult Immunizations not up to date. - Social history:: Smoking status: unknown. ROS: 06:40 Constitutional: Negative for fever, chills bs3 06:40 All other systems are negative. Exam: 06:40 Constitutional: This is a well developed, well nourished patient who is awake, alert, bs3 and in no acute distress. Head/Face: Normocephalic, atraumatic. Eyes: Pupils equal round and reactive to light, extra-ocular motions intact. Lids and lashes normal. ENT: mmm, no posterior phyarngeal erythema Neck: Trachea midline, no thyromegaly, no neck stiffness, +jvd Chest/axilla: Normal chest wall appearance and motion. Nontender with no deformity. No lesions are appreciated. Cardiovascular: Regular rate and rhythm with a normal S1 and S2. symmetric pulses in upper extremities Respiratory: Lungs have equal breath sounds bilaterally, clear to auscultation, no respiratory distress Abdomen/GI: Soft, non-tender, no rebound or guarding Male : He has edema of the scrotum and penis Skin: Warm, dry with normal turgor. Normal color with no rashes, no lesions, and no evidence of cellulitis. MS/ Extremity: 2+ pitting edema bilaterally Neuro: Awake and alert, GCS 15, oriented to person, place, time, and situation. Cranial nerves II-XII grossly intact. Motor strength 5/5 in all extremities. Sensory grossly intact. Psych: Awake, alert, with orientation to person, place and time. Behavior, mood, and affect are within normal limits. Vital Signs: 06:31 BP 179 / 126; Pulse 53; Resp 21; Temp 97.7; Pulse Ox 100% on R/A; Weight 124.28 kg; rv Height 5 ft. 11 in. ; 07:04 BP 156 / 120; Pulse 103; Resp 28; Pulse Ox 98% on R/A; vg1 07:15 BP 165 / 112; Pulse 100; Resp 27; Pulse Ox 97% on R/A; vg1 07:30 BP 168 / 116; Pulse 103; Resp 30; Pulse Ox 98% on R/A; vg1 08:00 BP 160 / 105; Pulse 103; Resp 25; Pulse Ox 97% on R/A; vg1 08:32 BP 153 / 110; Pulse 102; Resp 26; Pulse Ox 98% on R/A; vg1 09:16 BP 167 / 110; Pulse 97; Resp 26; Pulse Ox 98% on R/A; vg1 10:15 BP 162 / 107; Pulse 104; Resp 28; Pulse Ox 98% on R/A; vg1 10:58 BP 154 / 114; Pulse 103; Resp 26; Pulse Ox 99% ; vg1 06:31 Body Mass Index 38.21 (124.28 kg, 180.34 cm) rv MDM: 06:31 Patient medically screened. bs3 06:40 Data reviewed: vital signs, nurses notes. ED course: 62-year-old with progressive bs3 dyspnea on exertion and increasing leg swelling likely decompensated heart failure given his JVD we will check labs will diurese he is already on Lasix 80, spironolactone, acetazolamide, will dose when we get his labs back we will plan to admit as he is noncompliant and does not have a primary care doctor. 06:47 ED course: EKG is sinus tachycardia at 104 left axis deviation QTc 454 as interpreted bs3 by myself. 08:36 Differential diagnosis: CHF, pulmonary edema, anasarca. rn 08:37 Consideration of Admission/Observation Patient was admitted/placed on observation. rn Escalation of care including admission/observation considered. Management of patient was discussed with the following: Hospitalist: . Counseling: I had a detailed discussion with the patient and/or guardian regarding: the historical points, exam findings, and any diagnostic results supporting the discharge/admit diagnosis, lab results, radiology results, the need for further work-up and treatment in the hospital. Response to treatment: the patient's symptoms have mildly improved after treatment, and as a result, I will admit patient. 11/07 06:38 Order name: CBC with Diff; Complete Time: 09:06 bs3 11/07 06:38 Order name: NT PRO-BNP; Complete Time: 07:24 bs3 11/07 06:38 Order name: Troponin HS; Complete Time: 07:24 bs3 11/07 06:38 Order name: CMP; Complete Time: 07:24 bs3 11/07 08:52 Order name: CBC Smear Scan; Complete Time: 09:06 EDMS 11/07 10:48 Order name: CBC with Automated Diff EDMS 11/07 10:48 Order name: CBC with Automated Diff EDMS 11/07 10:48 Order name: Comprehensive Metabolic Panel EDMS 11/07 10:48 Order name: Comprehensive Metabolic Panel EDMS 11/07 10:48 Order name: Magnesium EDMS 11/07 10:48 Order name: Magnesium EDMS 11/07 10:48 Order name: NT PRO-BNP EDMS 11/07 10:48 Order name: NT PRO-BNP EDMS 11/07 10:48 Order name: Phosphorus EDMS 11/07 10:48 Order name: Phosphorus EDMS 11/07 10:48 Order name: Troponin High Sensitivity EDMS 11/07 10:48 Order name: Troponin High Sensitivity EDMS 11/07 10:48 Order name: Troponin High Sensitivity EDMS 11/07 10:48 Order name: Troponin High Sensitivity EDMS 11/07 06:38 Order name: XRAY Chest (1 view); Complete Time: 09:06 bs3 11/07 10:48 Order name: Echo with Doppler EDMS 11/07 06:38 Order name: EKG; Complete Time: 06:39 bs3 11/07 10:48 Order name: CONS Physician Consult EDIA 11/07 10:48 Order name: Heart Healthy EDIA 11/07 10:48 Order name: Low Sodium EDIA 11/07 06:38 Order name: Cardiac monitoring; Complete Time: 06:48 bs3 11/07 06:38 Order name: EKG - Nurse/Tech; Complete Time: 06:48 bs3 11/07 06:38 Order name: IV Saline Lock; Complete Time: 06:48 bs3 11/07 06:38 Order name: Labs collected and sent; Complete Time: 06:48 bs3 11/07 06:38 Order name: O2 Per Protocol; Complete Time: 06:48 bs3 11/07 06:38 Order name: O2 Sat Monitoring; Complete Time: 06:48 bs3 Administered Medications: 07:36 Drug: Nitroglycerin Transdermal Ointment 2 % 1 inches Route: Transdermal; Site: vg1 anterior chest wall; 08:43 Follow up: Response: No adverse reaction; Marked relief of symptoms vg1 07:37 Drug: Furosemide IVP 80 mg Route: IVP; Site: right antecubital; vg1 08:42 Follow up: Response: No adverse reaction; Marked relief of symptoms vg1 08:38 Drug: hydrALAZINE IVP 5 mg Route: IVP; Site: right antecubital; vg1 11:18 Follow up: Response: No adverse reaction; No change in condition vg1 Disposition Summary: 11/07/22 08:42 Hospitalization Ordered Hospitalization Status: Inpatient Admission rn Provider: Puma Curtis rn [facility] rn Condition: Stable rn Problem: new rn Symptoms: have improved rn Bed/Room Type: Standard rn Room Assignment: 208(11/07/22 10:59) eb Diagnosis - Unspecified combined systolic (congestive) and diastolic (congestive) heart failure rn - Acute pulmonary edema rn - Shyam rn Forms: - Medication Reconciliation Form rn - SBAR form tax associate attorney time excluding procedures: 08:38 Critical care time: Bedside Care: 35 minutes, Consultation: 5 minutes. Total time: 40 rn minutes Signatures: Dispatcher [facility] Naveed Dodd MD MD rn Botello, Elizabeth eb Vicente, Ronaldo RN Cristina Montoya RN RN vg1 Evans Newsome MD MD bs3 Corrections: (The following items were deleted from the chart) 08:42 vipul gaitan
[2022-11-07] MEDS ORDERED: HYDRALAZINE HCL 20 MG/ML VIAL ONE (08:43)
[2022-11-07 08:52] LABS: Anisocytosis 2+; Blood Morphology Comment NOTED (NOT SEEN); Platelet Estimate ADEQ; Polychromasia SLIGHT; Target Cells FEW; White Blood Cell Scan OK (OK)
--- NOTE | 2022-11-07 09:05 | RAD REPORT ---
EXAM DESCRIPTION: Jaskaran Single View11/07/2022 7:51 am CLINICAL HISTORY: sob COMPARISON: September 2022 FINDINGS: Heart is markedly enlarged Lungs appear clear Possible small pleural effusions
[2022-11-07] MEDS ORDERED: ACETAMINOPHEN 500 MG TAB PO PRN (10:41)
[2022-11-07] MEDS ORDERED: ONDANSETRON 4 MG/2 ML VIAL IV PRN (10:41)
[2022-11-07] MEDS ORDERED: ALBUMIN HUMAN 25% 12.5 GM, FUROSEMIDE 100 MG in NA CHLORIDE 0.9% 40 ML IV SCH (12:00)
[2022-11-07] MEDS ORDERED: DIGOXIN 0.25 MG/ML AMP IV ONE (14:00)
[2022-11-07] MEDS: HYDRALAZINE HCL 20 MG/ML VIAL IV PRN (23:59)
[2022-11-08 03:37] LABS: Absolute Lymphocytes (CBC) 0.9 K/uL (0.7-4.9); Hematocrit 36.8 % (39.6-49.0); Lymphocytes % 16.7 % (15.3-44.8); MPV 8.1 fL (7.6-11.3); RBC Red Blood Cell Count 4.19 M/uL (4.33-5.43)
[2022-11-08 05:12] LABS: Albumin 2.3 g/dL (3.4-5.0); Bilirubin Total 5.3 mg/dL (0.2-1.0); Magnesium 2.2 mg/dL (1.6-2.4); Phosphorus 2.2 mg/dL (2.5-4.9); Potassium 3.8 mEq/L (3.5-5.1); Protein, Total 6.7 g/dL (6.4-8.2); Troponin High Sensitivity 316.7 pg/mL (<58.9)
[2022-11-08] MEDS ORDERED: ALBUMIN HUMAN IV SCH (06:30)
[2022-11-08] MEDS ORDERED: FUROSEMIDE IV SCH (06:30)
[2022-11-08] MEDS ORDERED: NA CHLORIDE 0.9% IV SCH (06:30)
[2022-11-08] MEDS: POTASS/SODIUM PHOSPHATE 1 PKT POWD.PACK PO SCH ×2 (06:43→08:42)
[2022-11-08] MEDS: ALBUMIN HUMAN 25% 12.5 GM, FUROSEMIDE 100 MG in NA CHLORIDE 0.9% 40 ML IV SCH ×2 (08:34→14:17)
[2022-11-08] MEDS: ASPIRIN EC 81 MG TAB PO SCH (08:40)
[2022-11-08] MEDS: DIGOXIN 0.125 MG TABLET PO SCH (08:40)
[2022-11-08] MEDS: CLOPIDOGREL 75 MG TABLET PO SCH (08:41)
[2022-11-08] MEDS: POTASSIUM 25 MEQ EFFERV TAB PO SCH (08:42)
[2022-11-08] MEDS: ENOXAPARIN 40 MG/0.4 ML SQ SCH (08:42)
[2022-11-08] MEDS ORDERED: POTASSIUM CL SA 10 MEQ TAB PO ONE (09:00)
[2022-11-08] MEDS ORDERED: VALSARTAN 80 MG TAB PO SCH (09:00)
--- NOTE | 2022-11-08 12:05 | EKG ---
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: RV MEASUREMENT RESULTS: Intervals: Rate: 104 AL: 228 QRSD: 110 QT: 346 QTc: 454 [place]: P: 53 AL: 228 QRS: -65 T: 27 INTERPRETIVE STATEMENTS: Sinus tachycardia with 1st degree AV block Possible Left atrial enlargement Left axis deviation Inferior infarct, age undetermined Anterolateral infarct, age undetermined Abnormal ECG Compared to ECG 10/21/2021 11:07:12 First degree AV block now present Sinus rhythm no longer present Left ventricular hypertrophy no longer present Early repolarization no longer present Myocardial infarct finding still present Electronically Signed On 11-08-22 12:00:43 CDT by Indio Godinez
[2022-11-08] MEDS: HYDRALAZINE HCL 20 MG/ML VIAL IV PRN (21:09)
[2022-11-09 04:20] LABS: Phosphorus 2.8 mg/dL (2.5-4.9); Potassium 3.6 mEq/L (3.5-5.1)
[2022-11-09 04:21] LABS: Troponin High Sensitivity 305.4 pg/mL (<58.9)
[2022-11-09] MEDS: HYDRALAZINE HCL 20 MG/ML VIAL IV PRN (05:46)
--- NOTE | 2022-11-09 05:52 | P.HP ---
Certification for Inpatient Patient admitted to: Inpatient With expected LOS: >2 Midnights Patient will require the following post-hospital care: None Practitioner: I am a practitioner with admitting privileges, knowledge of patient current condition, hospital course, and medical plan of care. Services: Services provided to patient in accordance with Admission requirements found in Title 42 Section 412.3 of the Code of Federal Regulations Patient History Date of Service: 11/07/22 Reason for admission: Anasarca; cardiomyopathy; congestive heart failure with systolic dysfunctio History of Present Illness: Patient is a 62-year-old gentleman with a history of cardiomyopathy-ejection fraction of 29%-who comes into the hospital with shortness of breath and anasarca. Patient will be aggressively diuresed. Patient also with complaints of scrotal edema. Patient states he has never had this kind of swelling in a long time. Patient was having a hard time with his breathing so he came into the hospital for further evaluation. In the ER patient was started on diuretics. Chest x-ray showed pulmonary edema. Patient will be admitted to the hospital for further evaluation. Allergies No Known Allergies Allergy (Verified 02/14/20 19:55) Home Medications: Aspirin [Aspirin EC 81 MG] 81 mg PO DAILY 30 Days #90 tablet. 06/01/21 Atorvastatin Calcium [Lipitor] 40 mg PO BEDTIME 10/21/21 Furosemide [Lasix] 80 mg PO BID 11/07/22 Spironolactone 1 tab PO DAILY 11/07/22 lisinopriL [Lisinopril] 1 tab PO DAILY 11/07/22 - Past Medical/Surgical History Has patient received pneumonia vaccine in the past: No Diabetic: No -: Systolic congestive heart failure-EF 20% -: Hypertension -: Cardiomegaly -: Hyperlipidemia -: Morbid obesity -: Suspect underlying obstructive sleep apnea -: Former smoker -: Former alcohol use -: CKD 3 -: Heart catheterization 2019x2 -: knee surgery Psychosocial/ Personal History: Patient lives at home with his . - Family History Father Medical History: Heart disease, Other (see notes) Notes: of heart attack Mother Medical History: Diabetes Brother Medical History: Diabetes - Social History Smoking Status: Former smoker Alcohol use: No CD- Drugs: No Caffeine use: No Place of Residence: Home Review of Systems 10-point ROS is otherwise unremarkable Physical Examination - Vital Signs Temperature: 98.1 F Blood Pressure: 176/93 Pulse: 96 Respirations: 17 Pulse Ox (%): 95 - Physical Exam General: Alert, In no apparent distress, Oriented x3 HEENT: Atraumatic, PERRLA, Mucous membr. moist/pink, EOMI, Sclerae nonicteric Neck: Supple, 2+ carotid pulse no bruit, No LAD, Without JVD or thyroid abnormality Respiratory: Crackles/rales Cardiovascular: Regular rate/rhythm, Normal S1 S2, Abnormal S3 Gastrointestinal: Normal bowel sounds, Soft and benign, Non-distended, No tenderness Musculoskeletal: No clubbing, Swelling Integumentary: Tenderness/swelling Neurological: Normal speech, Normal tone, Sensation intact, Cranial nerves 3-12 intact, Normal affect Lymphatics: No axilla or inguinal lymphadenopathy Assessment & Plan - Problems (Diagnosis) (1) Acute systolic CHF (congestive heart failure) Current Visit: Yes Status: Acute (2) Anasarca Current Visit: Yes Status: Acute (3) Scrotal edema Current Visit: Yes Status: Acute (4) Bilateral lower extremity edema Current Visit: Yes Status: Acute (5) Elevated troponin Current Visit: Yes Status: Acute (6) Hypertension Current Visit: No Status: Acute - Plan PLAN: 1. Echocardiogram 2. Continue with cardiac meds; may start Entresto 3. Continue with beta-chhaya therapy eta chhaya 4. Cardiology consultation 5. Aggressive diuresis 6. Strict I's and O's 7. Repeat CXR 8. Daily weights 9. Education regarding diet and treatment of congestive heart failure Discharge Plan: Home Plan to discharge in: Greater than 2 days - Advance Directives Does patient have a Living Will: No Does patient have a Durable POA for Healthcare: No - Code Status/Comfort Care Code Status Assessed: Yes Code Status: Full Code Critical Care: No Time Spent Managing PTS Care (In Minutes): 45
--- NOTE | 2022-11-09 05:53 | P.PN ---
Subjective Date of Service: 11/08/22 Subjective: Improving Scrotal edema has improved; bilateral lower extremity is improved as well. Review of Systems 10-point ROS is otherwise unremarkable Physical Examination - Vital Signs Temperature: 98.1 F Blood Pressure: 176/93 Pulse: 96 Respirations: 17 Pulse Ox (%): 95 - Physical Exam General: Alert, In no apparent distress HEENT: Atraumatic, PERRLA, EOMI Neck: Supple, JVD not distended Respiratory: Clear to auscultation bilaterally, Normal air movement Cardiovascular: Regular rate/rhythm, Normal S1 S2 Gastrointestinal: Normal bowel sounds, No tenderness Musculoskeletal: No tenderness Integumentary: No rashes Neurological: Normal speech, Normal tone, Normal affect Lymphatics: No axilla or inguinal lymphadenopathy - Studies Medications List Reviewed: Yes Assessment & Plan - Problems (Diagnosis) (1) Acute systolic CHF (congestive heart failure) Current Visit: Yes Status: Acute (2) Anasarca Current Visit: Yes Status: Acute (3) Scrotal edema Current Visit: Yes Status: Acute (4) Bilateral lower extremity edema Current Visit: Yes Status: Acute (5) Elevated troponin Current Visit: Yes Status: Acute (6) Hypertension Current Visit: No Status: Acute - Plan PLAN: 1. Echocardiogram 2. Continue with cardiac meds; may start Entresto 3. Continue with beta-chhaya therapy eta chhaya 4. Cardiology consultation 5. Aggressive diuresis 6. Strict I's and O's 7. Repeat CXR 8. Daily weights 9. Education regarding diet and treatment of congestive heart failure - Advance Directives Does patient have a Living Will: No Does patient have a Durable POA for Healthcare: No - Code Status/Comfort Care Code Status: Full Code
--- NOTE | 2022-11-09 05:55 | P.PN ---
Date of Service: 11/09/22 Subjective Patient continues to do well. Symptoms are improving. We will continue with 1 more day of diuresing and then anticipate discharge home. Reviewed Review of Systems 10-point ROS is otherwise unremarkable Physical Examination - Vital Signs Reviewed - Physical Exam General: Alert, In no apparent distress Respiratory: Clear to auscultation bilaterally, Normal air movement Cardiovascular: Regular rate/rhythm, Normal S1 S2 Gastrointestinal: Normal bowel sounds, No tenderness Musculoskeletal: No tenderness Neurological: No focal deficits Assessment & Plan - Problems (Diagnosis) (1) Acute systolic CHF (congestive heart failure) Current Visit: Yes Status: Acute (2) Anasarca Current Visit: Yes Status: Acute (3) Scrotal edema Current Visit: Yes Status: Acute (4) Bilateral lower extremity edema Current Visit: Yes Status: Acute (5) Elevated troponin Current Visit: Yes Status: Acute (6) Hypertension Current Visit: No Status: Acute - Plan Continue with plan of care as mentioned below: 1. Echocardiogram pending 2. Continue with cardiac meds; may start Entresto 3. Continue with beta-chhaya therapy eta chhaya 4. Cardiology consultation 5. Aggressive diuresis 6. Strict I's and O's 7. Repeat CXR 8. Daily weights 9. Education regarding diet and treatment of congestive heart failure - Advance Directives Does patient have a Living Will: No Does patient have a Durable POA for Healthcare: No - Code Status/Comfort Care Code Status: Full Code
[2022-11-09] MEDS ORDERED: ALBUMIN HUMAN 25% 12.5 GM, FUROSEMIDE 100 MG in NA CHLORIDE 0.9% 40 ML IV SCH (08:00)
[2022-11-09] MEDS: HYDRALAZINE HCL 25 MG TABLET PO SCH ×3 (09:37→21:14)
[2022-11-09] MEDS: ENOXAPARIN 40 MG/0.4 ML SQ SCH (09:37)
[2022-11-09] MEDS: ASPIRIN EC 81 MG TAB PO SCH (09:37)
[2022-11-09] MEDS: ISOSORBIDE DINIT 20 MG TAB PO SCH ×3 (09:37→21:14)
[2022-11-09] MEDS: VALSARTAN 160 MG TAB PO SCH (09:37)
[2022-11-09] MEDS: DIGOXIN 0.125 MG TABLET PO SCH (09:37)
[2022-11-09] MEDS: POTASSIUM 25 MEQ EFFERV TAB PO SCH (09:38)
[2022-11-09] MEDS: CLOPIDOGREL 75 MG TABLET PO SCH (09:38)
[2022-11-09 13:40] VITALS: BMI 32.7
[2022-11-09] MEDS ORDERED: METOPROLOL TAR 50 MG TAB PO ONE (18:22)
[2022-11-10 01:20] VITALS: O2SAT 97
[2022-11-10] MEDS ORDERED: METOPROLOL TAR 25 MG TAB PO SCH (06:00)
[2022-11-10 06:23] LABS: Absolute Lymphocytes (CBC) 1.1 K/uL (0.7-4.9); Hematocrit 36.3 % (39.6-49.0); Lymphocytes % 24.1 % (15.3-44.8); MCV 87.5 fL (80-100); RBC Red Blood Cell Count 4.15 M/uL (4.33-5.43)
[2022-11-10 06:40] LABS: Potassium 3.7 mEq/L (3.5-5.1)
--- NOTE | 2022-11-10 08:53 | ECHO ---
HEIGHT: 5 ft 11 in WEIGHT: 234 lb 11.2 oz DATE OF STUDY: 11/09/[address]: Puma Curtis MD 2-DIMENSIONAL: YES M.MODE: YES DOPPLER: YES COLOR FLOW: YES TDS: NO PORTABLE: YES DEFINITY: NO BUBBLE STUDY: NO DIAGNOSIS: CONGESTIVE HEART FAILURE CARDIAC HISTORY: CATHERIZATION:YES SURGERY: NO PROSTHETIC VALVE: NO PACEMAKER: NO MEASUREMENTS (cm) DIASTOLIC (NORMALS) SYSTOLIC (NORMALS) IVSd 1.7 (0.6-1.2) LA Diam 4.6 (1.9-4.0) LVEF 30% LVIDd 4.9 (3.5-5.7) LVIDs 4.2 (2.0-3.5) %FS 14% LVPWd 1.6 (0.6-1.2) Ao Diam 2.7 (2.0-3.7) 2 DIMENSIONAL ASSESSMENT: RIGHT ATRIUM: NORMAL LEFT ATRIUM: NORMAL RIGHT VENTRICLE: NORMAL LEFT VENTRICLE: NORMAL SIZE TRICUSPID VALVE: NORMAL MITRAL VALVE: NORMAL PULMONIC VALVE: NORMAL AORTIC VALVE: NORMAL PERICARDIAL EFFUSION: NONE AORTIC ROOT: NORMAL LEFT VENTRICULAR WALL MOTION: SEVERE GLOBAL HYPOKINESIS. DOPPLER/COLOR FLOW: MILD MITRAL AND TRICUSPID REGURGITATION. COMMENTS: 1. SEVERE GLOBAL HYPOKINESIS. 2. LEFT VENTRICULAR EJECTION FRACTION 25-30%. 3. MILD MITRAL AND TRICUSPID REGURGITATION. 4. NO THROMBUS. TECHNOLOGIST: ELINA DUBOIS
[2022-11-10] MEDS: POTASSIUM 25 MEQ EFFERV TAB PO SCH (09:14)
[2022-11-10] MEDS: ISOSORBIDE DINIT 20 MG TAB PO SCH ×2 (09:14→13:36)
[2022-11-10] MEDS: ASPIRIN EC 81 MG TAB PO SCH (09:15)
[2022-11-10] MEDS: HYDRALAZINE HCL 25 MG TABLET PO SCH ×2 (09:15→13:36)
[2022-11-10] MEDS: DIGOXIN 0.125 MG TABLET PO SCH (09:15)
[2022-11-10] MEDS: ENOXAPARIN 40 MG/0.4 ML SQ SCH (09:15)
[2022-11-10] MEDS: CLOPIDOGREL 75 MG TABLET PO SCH (09:15)
[2022-11-10] MEDS: VALSARTAN 160 MG TAB PO SCH (09:16)
[2022-11-10] MEDS ORDERED: FUROSEMIDE 40 MG/4 ML VIAL IV ONE (11:24)
--- NOTE | 2022-11-10 12:20 | CON ---
Date of Consultation: 11/08/2022 Reason For Consultation: Acute congestive heart failure with anasarca . History Of Present Illness: Mr. Yadav is a 62. status post stents in the past. Has h ad a history of hypertension. He comes in with anasarca, mostly testicular swelling, thigh swelling, pedal edema from PND, orthopnea. He denied any chest pain. He denied any nausea, vomiting, diaphor esis. He denied any palpitation or syncope. Denied any fever or chills. Was found to have a second -degree AV block on admission, type 1 Wenckebach. Chest x-ray showed congestive heart failure. Trop onin was 316. His blood pressure was 179/126. His creatinine is 1.8. He is supposed to take medici ne and he is noncompliant. Medications: His present medications include aspirin, Plavix, digoxin, valsartan, lovastatin, and hy dralazine. Review of Systems: Negative. Social History: Negative. Family History: Negative. Physical Examination: Vital Signs: He was hypertensive at 179/126, sinus rhythm, afebrile. HEENT: Negative. Neck: Supple with no bruit. Chest: Reveals some rales both bases. Cardiac: Revealed S3 gallops. Abdomen: Obese. Extremities: Revealed anasarca. Diagnostic Data: Showed a creatinine of 1.8, troponin 316. Impression And Plan: New onset congestive heart failure, most likely systolic. Echocardiogram is pe nding. We need to control his blood pressure. Nephrology consultation should be obtained. Troponin elevation is secondary to demand ischemia. We certainly have room with his blood pressure. We can increase the beta-chhaya, increase the valsartan. We can increase hydralazine. Mostly, he needs to have some aggressive diuresis. See what the echo shows, watch his creatinine, I and O's and daily w eight. I will discuss the case further with Dr. Curtis. GAYATHRI/CHRISTINE Voice ID: [id number] Report ID: [id number]
--- NOTE | 2022-11-10 12:55 | PN ---
Date of Progress Note: 11/09/2022 Mr. Yadav had came in with congestive heart failure, anasarca, second-degree AV block type 1 Mobit z. No syncope. He has a history of hypertension and coronary artery disease. He came in very hyper tensive with a blood pressure of 179/126. His blood pressure is improved. His troponin was 316 seco ndary to demand ischemia, creatinine 1.8. He is presently on aspirin, Plavix, digoxin, Lovenox, vals abraham, and hydralazine. Echocardiogram showed an ejection fraction of 35% with severe global hypokin esis. I think he can benefit from a low-dose Coreg, maybe increased the dose of losartan, consider Sylvie marie. I will discuss the case further with Dr. Curtis. GAYATHRI/CHRISTINE Voice ID: [id number] Report ID: [id number]
[2022-11-10 13:01] VITALS: BP 135/69; TEMP 97.8
== END 2022-11-10 14:34 | disposition home or self-care (01) | DRG 291 ==
LOC: ER 06:21 → ERHOLD 10:41 → 2ND 11:18
PROVIDERS: ADMIT Hospitalist; ATTEND Hospitalist
DX: I13.0 Hypertensive heart and chronic kidney disease with heart failure and stage 1 through stage 4 chronic kidney disease, or unspecified chronic kidney disease (principal); I50.21 Acute systolic (congestive) heart failure; E78.5 Hyperlipidemia, unspecified; E66.01 Morbid (severe) obesity due to excess calories; G47.33 Obstructive sleep apnea (adult) (pediatric); N18.30 Chronic kidney disease, stage 3 unspecified; N50.89 Other specified disorders of the male genital organs; R60.1 Generalized edema; I25.2 Old myocardial infarction; Z68.32 Body mass index [BMI] 32.0-32.9, adult; Z87.891 Personal history of nicotine dependence
CPT/HCPCS: 36415; 71045; 80048; 80053; 82947; 83605; 83735; 83880; 84100; 84484; 85025; 93005; 93306; 96374; 96375; 99285; J0360; J1160; J1650; J1940; P9047